=== PATIENT | male | born 1980 | race African-American/Black ===

== ENCOUNTER 2022-07-01 07:28 | Outpatient (REF) | payer OTHER, SELFPAY ==
[2022-07-01 11:13] LABS: MANUAL DIFF FLAG NO
[2022-07-01 11:21] LABS: Basophils Absolute Auto 0.1 X10*3/uL (0.0-0.2); Basophils Percent Auto 1.3 % (0-2); Eosinophils Absolute Auto 0.2 X10*3/uL (0.0-0.4); Eosinophils Percent Auto 5.4 % (0-4); Hemoglobin 14.5 g/dl (14.0-18.0); Imm Gran Abs Auto 0.01 X10*3/uL (0.00-0.03); Imm Gran Pct Auto 0.3 % (0.0-0.4); Lymphocytes Absolute Auto 1.5 X10*3/uL (1.2-4.9); Lymphocytes Percent Auto 39.1 % (20-40); Mean Corpuscular HGB Conc 33.7 g/dl (31.0-36.0); Mean Corpuscular Hemoglobin 29.1 pg (27.0-33.0); Mean Corpuscular Volume 86.3 fL (80.0-98.0); Mean Platelet Volume 12.4 fL (9.4-12.4); Monocytes Absolute Auto 0.2 X10*3/uL (0.1-1.2); Monocytes Percent Auto 5.7 % (2-11); Neutrophils Absolute Auto 1.8 x10*3/uL (2.0-8.3); Neutrophils Percent Auto 48.2 % (45-73); Platelet Count 228 X10*3/uL (160-400); Red Blood Count 4.98 X10*6/uL (4.60-5.80); Red Cell Distribution Width 12.7 % (11.0-16.0); White Blood Count 3.7 X10*3/uL (4.8-10.8)
[2022-07-01 11:40] LABS: Alanine Aminotransferase 50 U/L (0-40); Albumin Level 4.5 g/dL (3.5-5.0); Alkaline Phosphatase 44 U/L (39-117); Anion Gap 16 (12-20); Aspartate Amino Transferase 27 U/L (5-37); Bilirubin Total 0.5 mg/dL (0.0-1.0); Blood Urea Nitrogen 22 mg/dL (9-16); Calcium 9.4 mg/dL (8.4-10.2); Carbon Dioxide 22 mmol/L (22-29); Chloride 104 mmol/L (96-108); Cholesterol 155 mg/dL; Estimated Glomerular Filt Rate 48; Glucose Fasting 152 mg/dL (60-99); HDL Cholesterol 37 mg/dL; LDL Cholesterol Calculated 99 mg/dl; Potassium 3.9 mmol/L (3.3-5.1); Sodium 138 mmol/L (135-145); Total Protein 7.4 g/dL (6.5-8.0); Triglycerides 98 mg/dL
== END 2022-07-01 07:29 | disposition home or self-care (01) ==
LOC: HO.WFDLDS 07:28
PROVIDERS: Visit Provider Nurse Practitioner Family
DX: Z00.00 Encounter for general adult medical examination without abnormal findings (principal)
CPT/HCPCS: 36415; 80053; 80061; 85025

== ENCOUNTER 2022-07-19 12:24 | Outpatient (REF) | payer OTHER, SELFPAY ==
[2022-07-19 14:14] LABS: Estimated Average Glucose 105 mg/dL; Hemoglobin A1c % 5.3 %
[2022-07-19 14:41] LABS: Anion Gap 13 (12-20); Blood Urea Nitrogen 25 mg/dL (9-16); Carbon Dioxide 27 mmol/L (22-29); Chloride 101 mmol/L (96-108); Estimated Glomerular Filt Rate 42; Glucose Random 96 mg/dL (60-115); Potassium 4.3 mmol/L (3.3-5.1); Sodium 137 mmol/L (135-145)
== END 2022-07-19 12:25 | disposition home or self-care (01) ==
LOC: HO.WFDLDS 12:24
PROVIDERS: Visit Provider Nurse Practitioner Family
DX: R79.89 Other specified abnormal findings of blood chemistry (principal); R73.01 Impaired fasting glucose
CPT/HCPCS: 36415; 80048; 83036

== ENCOUNTER 2022-08-31 08:53 | Outpatient (REF) | payer OTHER, SELFPAY ==
[2022-08-31 12:15] LABS: Alanine Aminotransferase 49 U/L (0-40); Albumin Level 4.7 g/dL (3.5-5.0); Alkaline Phosphatase 42 U/L (39-117); Anion Gap 16 (12-20); Aspartate Amino Transferase 24 U/L (5-37); Bilirubin Direct 0.2 mg/dL (0.0-0.5); Bilirubin Total 0.7 mg/dL (0.0-1.0); Blood Urea Nitrogen 20 mg/dL (9-16); Calcium 9.9 mg/dL (8.4-10.2); Carbon Dioxide 26 mmol/L (22-29); Chloride 97 mmol/L (96-108); Estimated Glomerular Filt Rate 49; Glucose Fasting 93 mg/dL (60-99); Sodium 135 mmol/L (135-145); Total Protein 7.8 g/dL (6.5-8.0)
== END 2022-08-31 08:54 | disposition home or self-care (01) ==
LOC: HO.WFDLDS 08:53
PROVIDERS: Visit Provider Nurse Practitioner Family
DX: R79.89 Other specified abnormal findings of blood chemistry (principal); R74.8 Abnormal levels of other serum enzymes
CPT/HCPCS: 36415; 80053; 80076; 82248

== ENCOUNTER 2022-10-19 09:46 | Outpatient (REF) | payer OTHER, SELFPAY ==
[2022-10-19 12:33] LABS: Alanine Aminotransferase 47 U/L (0-40); Albumin Level 4.7 g/dL (3.5-5.0); Alkaline Phosphatase 45 U/L (39-117); Anion Gap 12 (12-20); Aspartate Amino Transferase 24 U/L (5-37); Bilirubin Total 0.7 mg/dL (0.0-1.0); Blood Urea Nitrogen 14 mg/dL (9-16); Calcium 9.8 mg/dL (8.4-10.2); Carbon Dioxide 29 mmol/L (22-29); Chloride 102 mmol/L (96-108); Estimated Glomerular Filt Rate 57; Glucose Fasting 93 mg/dL (60-99); Potassium 4.1 mmol/L (3.3-5.1); Sodium 139 mmol/L (135-145); Total Protein 7.8 g/dL (6.5-8.0)
[2022-10-19 12:45] LABS: Microalbum/Creatinine Ratio Ur 6.4 ug/mg cr
== END 2022-10-19 09:47 | disposition home or self-care (01) ==
LOC: HO.HMGCLDS 09:46
PROVIDERS: PCP Family Medicine; Visit Provider Family Medicine
DX: Z00.00 Encounter for general adult medical examination without abnormal findings (principal); I10 Essential (primary) hypertension; N17.9 Acute kidney failure, unspecified
CPT/HCPCS: 36415; 80048; 80053; 82043

== ENCOUNTER 2022-11-02 08:13 | Outpatient (REF) | payer OTHER, SELFPAY ==
--- NOTE | ~2022-11-02 | US_ITS ---
EXAMINATION: US ABDOMEN LIMITED WITH LIVER ELASTOGRAPHY CLINICAL INFORMATION: Elevated liver enzymes. COMPARISON: None. TECHNIQUE: Real-time imaging of the abdominal viscera. Noninvasive ultrasound liver fibrosis assessment is performed using Lewis ElastPQ point quantification shear wave elastography (2D-SWE) with a C5-2 MHz transducer. Multiple elastography samples are obtained. FINDINGS: PANCREAS: Normal. The visualized pancreatic head and body are normal in appearance. The remainder of the pancreas is obscured from visualization by the overlying bowel gas. LIVER: The liver demonstrates normal size, contour and echogenicity. There is a solid echogenic lesion in the left hepatic lobe measuring 2.1 x 1.7 x 1.6 cm suggestive of a small hemangioma. The right lobe measures 16.8 cm in length. The left lobe measures 12.3 cm in length. Portal flow is hepatopedal. Shear wave liver elastography median stiffness is 1.30 m/s (reference: normal median stiffness is 1.3 m/s or less). IQR/median stiffness to assess sampling precision is 0.02 (reference: good quality data set is IQR/median stiffness of 0.15 or less). GALLBLADDER: Normal. The gallbladder is physiologically distended without evidence of stones, sludge, polyps, wall thickening or pericholecystic fluid. COMMON BILE DUCT: Normal in caliber measuring 0.5 cm in diameter. RIGHT KIDNEY: There is an anechoic cyst in upper pole measuring 0.8 x 0.7 x 0.8 cm. No hydronephrosis. No renal calculi or focal parenchymal lesions. The kidney measures 10.3 cm in maximum dimension. FREE FLUID: None. US/US abdomen costello w elastography IMPRESSION: 1. Small hemangioma left hepatic lobe. 2. Small right renal upper pole cyst measuring 8mm. 3. Liver elastography: Median liver stiffness measures 1.30 m/s corresponding to high probability of the normal study. REFERENCE: Society of Radiologists in Ultrasound Liver Stiffness Thresholds (2020): LIVER STIFFNESS THRESHOLDS: *Liver Stiffness equal or less than 1.3 m/s: High probability of being normal. *Liver Stiffness less than 1.7 m/s: In the absence of other known clinical signs, rules out compensated advanced chronic liver disease. *Liver Stiffness 1.7-2.1 m/s: Suggestive of compensated advanced chronic liver disease but need further test for confirmation. *Liver Stiffness over 2.1 m/s: Rules in compensated advanced chronic liver disease. *Liver Stiffness over 2.4 m/s: Suggestive of clinically significant portal hypertension. QUALITY OF DATA SET: *IQR/Median value equal or less than 0.15 implies a quality data set. *IQR/Median value over 0.15 implies a poor quality data set. SIGNIFICANT CHANGE FROM PRIOR EXAM: Significant change if liver stiffness measurement is 10% or greater from prior exam. OTHER CONSIDERATIONS: The stage of liver fibrosis may be overestimated in the setting of acute hepatitis, liver inflammation, elevated liver function tests, hepatic vascular congestion, obstructive cholestasis, non-fasting state, and infiltrative diseases such as amyloidosis and lymphoma. In some patients with NAFLD, the liver stiffness thresholds for compensated advanced chronic liver disease may be lower. In causes other than viral hepatitis and NAFLD, liver stiffness thresholds are not well established.
== END 2022-11-02 08:14 | disposition home or self-care (01) ==
LOC: HO.US 08:13
PROVIDERS: Visit Provider Family Medicine
DX: R74.8 Abnormal levels of other serum enzymes (principal)
CPT/HCPCS: 76705; 76981

== ENCOUNTER 2022-12-22 08:36 | Outpatient (REF) | payer OTHER, SELFPAY ==
[2022-12-22 11:23] LABS: MANUAL DIFF FLAG NO
[2022-12-22 11:28] LABS: Basophils Absolute Auto 0.1 X10*3/uL (0.0-0.2); Basophils Percent Auto 1.4 % (0-2); Eosinophils Absolute Auto 0.1 X10*3/uL (0.0-0.4); Eosinophils Percent Auto 2.6 % (0-4); Hematocrit 42.8 % (42.0-52.0); Hemoglobin 14.7 g/dl (14.0-18.0); Imm Gran Abs Auto 0.01 X10*3/uL (0.00-0.03); Imm Gran Pct Auto 0.2 % (0.0-0.4); Lymphocytes Absolute Auto 2.1 X10*3/uL (1.2-4.9); Lymphocytes Percent Auto 48.2 % (20-40); Mean Corpuscular HGB Conc 34.3 g/dl (31.0-36.0); Mean Corpuscular Hemoglobin 29.2 pg (27.0-33.0); Mean Corpuscular Volume 84.9 fL (80.0-98.0); Mean Platelet Volume 11.8 fL (9.4-12.4); Monocytes Absolute Auto 0.3 X10*3/uL (0.1-1.2); Neutrophils Absolute Auto 1.7 x10*3/uL (2.0-8.3); Neutrophils Percent Auto 39.6 % (45-73); Platelet Count 215 X10*3/uL (160-400); Red Blood Count 5.04 X10*6/uL (4.60-5.80); Red Cell Distribution Width 12.2 % (11.0-16.0); White Blood Count 4.3 X10*3/uL (4.8-10.8)
[2022-12-22 11:55] LABS: Alanine Aminotransferase 40 U/L (0-40); Albumin Level 4.4 g/dL (3.5-5.0); Alkaline Phosphatase 42 U/L (39-117); Anion Gap 12 (12-20); Aspartate Amino Transferase 21 U/L (5-37); Bilirubin Total 0.5 mg/dL (0.0-1.0); Blood Urea Nitrogen 12 mg/dL (9-16); Calcium 9.8 mg/dL (8.4-10.2); Carbon Dioxide 28 mmol/L (22-29); Chloride 104 mmol/L (96-108); Estimated Glomerular Filt Rate 51; Glucose Random 95 mg/dL (60-115); Potassium 4.3 mmol/L (3.3-5.1); Sodium 140 mmol/L (135-145); Total Protein 7.1 g/dL (6.5-8.0)
== END 2022-12-22 08:37 | disposition home or self-care (01) ==
LOC: HO.HMGCLDS 08:36
PROVIDERS: PCP Family Medicine; Visit Provider Family Medicine
DX: Z00.00 Encounter for general adult medical examination without abnormal findings (principal); N17.9 Acute kidney failure, unspecified
CPT/HCPCS: 36415; 80053; 85025

== ENCOUNTER 2022-12-28 10:25 | Outpatient (REF) | payer OTHER, SELFPAY ==
--- NOTE | ~2022-12-28 | US_ITS ---
EXAMINATION: US RETROPERITONEAL LIMITED (RENAL ONLY) CLINICAL INFORMATION: Cyst of kidney, acquired. COMPARISON: US abdomen complete with liver elastography 11/02/2022. TECHNIQUE: Real-time imaging of the kidneys. FINDINGS: RIGHT KIDNEY: 11.1 x 4.4 x 6.0 cm (SAG x AP x TRV). The kidney is normal in size, contour, and echogenicity. Renal cortical thickness is normal. No renal calculi or hydronephrosis. A benign-appearing 0.6 cm renal cyst,, previously 0.8 cm no imaging follow-up recommended. LEFT KIDNEY: 11.3 x 5.6 x 4.8 cm (SAG x AP x TRV). The kidney is normal in size, contour, and echogenicity. Renal cortical thickness is normal. No calculi or focal parenchymal lesions. No hydronephrosis. US/US renal BI IMPRESSION: Benign-appearing subcentimeter right renal cyst, no imaging follow-up recommended..
[2022-12-28 14:36] LABS: Influenza A PCR NEGATIVE (Negative); Influenza B PCR NEGATIVE (Negative); Resp Syncy Virus RNA Qual PCR NEGATIVE (Negative); SARS COV2 PCR INHOUSE NEGATIVE (Negative)
== END 2022-12-28 10:26 | disposition home or self-care (01) ==
LOC: HO.US 10:25
PROVIDERS: Physician Assistant; PCP Family Medicine; Visit Provider Family Medicine
DX: Z20.822 Contact with and (suspected) exposure to COVID-19 (principal); N28.1 Cyst of kidney, acquired; B34.9 Viral infection, unspecified
CPT/HCPCS: 0241U; 76775

== ENCOUNTER 2023-03-21 09:34 | Outpatient (REF) | payer OTHER, SELFPAY ==
[2023-03-21 11:45] LABS: Estimated Average Glucose 105 mg/dL; Hemoglobin A1c % 5.3 %
[2023-03-21 12:24] LABS: Alanine Aminotransferase 48 U/L (0-40); Albumin Level 4.6 g/dL (3.5-5.0); Alkaline Phosphatase 40 U/L (39-117); Anion Gap 11 (12-20); Aspartate Amino Transferase 25 U/L (5-37); Bilirubin Total 0.6 mg/dL (0.0-1.0); Blood Urea Nitrogen 14 mg/dL (9-16); Calcium 9.8 mg/dL (8.4-10.2); Carbon Dioxide 29 mmol/L (22-29); Chloride 106 mmol/L (96-108); Estimated Glomerular Filt Rate 56; Glucose Random 93 mg/dL (60-115); Potassium 3.7 mmol/L (3.3-5.1); Sodium 142 mmol/L (135-145); Total Protein 7.4 g/dL (6.5-8.0)
== END 2023-03-21 09:35 | disposition home or self-care (01) ==
LOC: HO.WFDLDS 09:34
PROVIDERS: Visit Provider Family Medicine
DX: R73.01 Impaired fasting glucose (principal); N19 Unspecified kidney failure
CPT/HCPCS: 36415; 80053; 83036

== ENCOUNTER 2023-08-16 10:28 | Outpatient (AMB) | payer OTHER, SELFPAY ==
[2023-08-16 10:32] VITALS: BP 120/72; PULSE 79; O2SAT 97; BMI 24.4
--- NOTE | 2023-08-16 10:32 | MHC.PC.OV ---
Vital Signs 08/16/23 10:32 Height 6 ft 1 in Weight 185 lb BMI 24.4 BP 120/72 Blood Pressure Location Lt brachial Position Sitting Pulse 79 Pulse Source Pulse Oximeter Pulse Oximetry (%) 97 Oxygen Delivery Method Room Air Intake Visit Reasons: Follow-up labs and rash Intake Note: Patient is here to follow up on labs and rash, today is complaining of left shoulder pain for 3 weeks, possibly from lifting weights. Allergies naproxen Allergy (Mild, Verified 08/16/23 10:35) Rash Tobacco use date assessed: 08/16/23 Dental Screening Dental Screen Date: 08/16/23 Did you have a dental visit in the last 12 months?: Yes Did you have a dental problem in the last 6 months where you did not have access to dental care?: No Was dental information given to patient?: Patient has dentist HPI Follow-up labs and rash HPI Details 43 y/o male presents to f/u labs and a rash. Blood pressure today is 120/72. He is on amlodipine 7.5mg daily and losartan 50mg. Pt has complaints of L shoulder pain x3 weeks. He reports pain possibly from lifting weights. Labs were drawn 03/21/23. Reviewed labs with pt. Elevated ALT of 48. PFSH Medical History (Reviewed 08/16/23 @ 10:36 by Joselyn Frost [facility]) Allergies High blood pressure Family History Father High blood pressure High cholesterol Mother High blood pressure High cholesterol Maternal Grandmother High blood pressure High cholesterol Diabetes Paternal Grandfather Diabetes High blood pressure High cholesterol Paternal Grandmother Diabetes High blood pressure High cholesterol Other No family history of mental disorder Social History Housing: Apartment Patient Tobacco Use Status: Never used Tobacco e-Cigarette/Vaping Use: Never Used Second Hand Smoke Exposure: No service: Yes Current occupational status: employed Current occupational exposures/hazards: No Cognitive needs: No Hearing needs: No Vision needs: No Questionnaire Thrive Questionnaire Date Thrive assessed: 01/14/23 NELLI-7 AMB Questionnaire NELLI-7 Date NELLI - 7 assessed: 01/14/23 Source: Developed by Drs. Olu Jerez, Tonya Duron, Rod Chen and colleagues, with an educational beba from [employer]. Review of Systems Const Denies chills, Denies fatigue, Denies fever(s), Denies headache(s) and Denies weakness ENT Denies dizziness and Denies headache(s) Card Denies dyspnea Resp Denies cough, Denies dyspnea, Denies wheezing and Denies other (shortness of breath) Musc Denies numbness and Denies tingling Skin/Breast Reports rash Neuro Denies dizziness, Denies headache(s), Denies numbness, Denies tingling and Denies weakness Psych Denies anxiety and Denies depression Endo Denies fatigue Aller/Immun Denies wheezing Physical exam (Primary Care) Vital Signs: Last Vital Signs Pulse 79 08/16/23 10:32 BP 120/72 08/16/23 10:32 Pulse Ox 97 08/16/23 10:32 Oxygen Delivery Method Room Air 08/16/23 10:32 BMI result Body Mass Index 24.4 Tobacco/Smoking Status: Tobacco use Status Tobacco use date assessed 08/16/23 08/16/23 10:40 Patient Tobacco Use Status Never used Tobacco 08/16/23 10:40 e-Cigarette/Vaping Use Never Used 08/16/23 10:40 Thrive Assessment: Date of Thrive Assessment Date Thrive assessed 01/14/23 08/16/23 10:40 Const General: well developed; No acute distress Nutritional Appearance: well nourished Orientation/consciousness: [facility]: Yes normocephalic and Yes atraumatic Eyes General: appearance normal, both eyes and all related structures Pupils: Equal, round and reactive pupils present EOM: EOMs intact bilaterally Resp Effort & Inspection: normal respiratory effort Neuro General: patient oriented x3 and gait normal Cranial nerves: Yes Equal, round and reactive pupils present Psych Affect: normal affect Assessment and Plan Assessment & Plan (1) Left shoulder pain: Code(s): M25.512 - Pain in left shoulder Plan: Left shoulder and left upper back pain primarily emanating from subscapular region. Likely strain of subscapularis muscle. Can use ibuprofen, ice/heat and I will refer him for physical therapy (2) Rash of body: Code(s): R21 - Rash and other nonspecific skin eruption Plan: Rash bilateral axillae Possible fungal infection but noted patient is using a heavy amount of deodorant. Possible allergic reaction Encouraged him to change his deodorant/antiperspirant or consider discontinuing this Will give him a combo cream He has an appointment with Dermatology. (3) Elevated liver enzymes: Code(s): R74.8 - Abnormal levels of other serum enzymes Plan: Repeat liver enzymes Orders: Orders Lipid Panel Today Z00.00 - Encounter for general adult medical examination without abnormal findings Microalbumin, Random (w Creat) Today I10 - Essential (primary) hypertension UA and rflx microscopic Today Z00.00 - Encounter for general adult medical examination without abnormal findings PT Evaluation and Treatment Today M25.512 - Pain in left shoulder Comprehensive [place]. Panel Fast Today Z00.00 - Encounter for general adult medical examination without abnormal findings Prostate Specific Antigen Scr Today Z12.5 - Encounter for screening for malignant neoplasm of prostate TSH reflex Free T4 Today Z00.00 - Encounter for general adult medical examination without abnormal findings Medications: New clotrimazole-betamethasone 1-0.05 % 1 appl topical BID 45 grams 1RF 2 weeks Coding Level of Care Code Est Pt Level 4 (14502) Diagnoses Left shoulder pain M25.512 Rash of body R21 Elevated liver enzymes R74.8
== END 2023-08-16 10:58 | disposition home or self-care (01) ==
PROVIDERS: PCP Family Medicine; Visit Provider Family Medicine
DX: M25.512 Pain in left shoulder (principal); R21 Rash and other nonspecific skin eruption; R74.8 Abnormal levels of other serum enzymes
CPT/HCPCS: 99214

== ENCOUNTER 2023-10-17 06:20 | Outpatient (REF) | payer OTHER, SELFPAY ==
[2023-10-17 07:53] LABS: Appearance Urine Clear; Color Urine Yellow; Glucose Urine UA Negative (Negative); Leukocyte Esterase Urine Negative (Negative); Nitrite Urine Negative (Negative); Specific Gravity - Urine 1.025 (1.005-1.025); Urine Blood Negative (Negative); Urine Ketones Negative (Negative); Urine Protein Negative (Neg-Trace)
[2023-10-17 08:35] LABS: Alanine Aminotransferase 72 U/L (0-40); Albumin Level 4.5 g/dL (3.5-5.0); Alkaline Phosphatase 45 U/L (39-117); Anion Gap 10 (12-20); Aspartate Amino Transferase 55 U/L (5-37); Bilirubin Total 0.3 mg/dL (0.0-1.0); Blood Urea Nitrogen 15 mg/dL (9-16); Calcium 9.9 mg/dL (8.4-10.2); Carbon Dioxide 29 mmol/L (22-29); Chloride 105 mmol/L (96-108); Cholesterol 161 mg/dL (<200); Estimated Glomerular Filt Rate 53; Glucose Fasting 101 mg/dL (60-99); HDL Cholesterol 50 mg/dL (>40); LDL Cholesterol Calculated 92 mg/dL (<100); Potassium 3.7 mmol/L (3.3-5.1); Sodium 140 mmol/L (135-145); Total Protein 7.7 g/dL (6.5-8.0); Triglycerides 98 mg/dL (<150)
[2023-10-17 08:41] LABS: Prostate Specific Antigen Scr 1.42 ng/mL (<0.05-4.0)
[2023-10-17 08:51] LABS: TSH reflex Free T4 3.33 uIU/mL (0.32-4.0)
== END 2023-10-17 06:21 | disposition home or self-care (01) ==
LOC: HO.LAB 06:20
PROVIDERS: PCP Family Medicine; Visit Provider Family Medicine
DX: Z00.00 Encounter for general adult medical examination without abnormal findings (principal); I10 Essential (primary) hypertension; Z12.5 Encounter for screening for malignant neoplasm of prostate
CPT/HCPCS: 36415; 80053; 80061; 81003; 82043; 82570; 84153; 84443

== ENCOUNTER 2023-10-19 13:45 | Outpatient (AMB) | payer OTHER, SELFPAY ==
[2023-10-19 13:51] VITALS: BP 116/64; PULSE 83; RESP 16; O2SAT 98; BMI 24.4
--- NOTE | 2023-10-19 13:51 | MHC.PC.OV ---
Vital Signs 10/19/23 13:51 Height 6 ft 1 in Weight 185 lb BMI 24.4 BP 116/64 Blood Pressure Location Rt brachial Position Sitting Respiration 16 Pulse 83 Pulse Source Pulse Oximeter Pulse Oximetry (%) 98 Oxygen Delivery Method Room Air Intake Visit Reasons: CPE with f/u labs and health maint. Intake Note: Patient is here for his physical today. He is requesting MRI at this time, too. Allergies naproxen Allergy (Mild, Verified 10/19/23 13:53) Rash Tobacco use date assessed: 10/19/23 HPI CPE with f/u labs and health maint. HPI Details 43 y/o male presents for a CPE with f/u labs and health maintenance. Labs were drawn 10/17/23. Reviewed labs with pt. Creatinine level worsened from 1.39 to 1.46. Elevated fasting glucose of 101. Last A1c 03/21/23 5.3%. Liver enzymes elevated - AST 55 and ALT 72. Triglycerides 98. TC 161. LDL 92. HDL 50. Pt reports ongoing issues with his shoulders. 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 Olu Jerez, Tonya Duron, Rod Chen and colleagues, with an educational beba from [employer]. Review of Systems Const Denies chills, Denies fatigue, Denies fever(s), Denies headache(s) and Denies weakness Eyes Denies change in vision ENT Denies dizziness, Denies headache(s), Denies hearing loss, Denies nasal congestion, Denies sinus pain, Denies sinus pressure and Denies sore throat Card Denies chest pain, Denies lightheadedness, Denies dyspnea and Denies other (palpitations) Resp Denies cough, Denies dyspnea and Denies wheezing GI Denies abdominal pain, Denies melena, Denies hematochezia, Denies change in bowel habits, Denies dyspepsia and Denies nausea Denies hematuria and Denies dysuria Musc Details: Shoulder pain Denies abnormal gait, Denies myalgias, Denies arthralgias, Denies numbness and Denies tingling Skin/Breast Denies rash, Denies unusual bruising and Denies wounds Neuro Denies abnormal gait, Denies dizziness, Denies headache(s), Denies memory loss, Denies numbness, Denies Sensory deficit (Neuro), Denies tingling and Denies weakness Psych Denies anxiety, Denies depression and Denies memory loss Endo Denies cold intolerance, Denies fatigue, Denies heat intolerance, Denies polydipsia and Denies polyuria Zoran/Lymph Denies easy bleeding and Denies easy bruising Aller/Immun Denies wheezing Physical exam (Primary Care) Vital Signs: Last Vital Signs Pulse 83 10/19/23 13:51 Resp 16 10/19/23 13:51 BP 116/64 10/19/23 13:51 Pulse Ox 98 10/19/23 13:51 Oxygen Delivery Method Room Air 10/19/23 13:51 BMI result Body Mass Index 24.4 Tobacco/Smoking Status: Tobacco use Status Tobacco use date assessed 10/19/23 10/19/23 13:57 Patient Tobacco Use Status Never used Tobacco 10/19/23 13:57 e-Cigarette/Vaping Use Never Used 10/19/23 13:57 Thrive Assessment: Date of Thrive Assessment Date Thrive assessed 01/14/23 10/19/23 13:57 Const General: no acute distress, well developed, alert and awake Nutritional Appearance: well nourished Orientation/consciousness: patient oriented x3 HENMT Head: Yes normocephalic and Yes atraumatic Ears: hearing grossly normal bilaterally and TM's normal bilaterally General nose exam: Normal external nose present and Normal nares present Mouth: Normal oral and palatal mucosa present and moist mucous membranes Teeth and gingiva: dentition normal Throat: Yes posterior oropharynx normal Eyes General: appearance normal, both eyes and all related structures Pupils: Equal, round and reactive pupils present and Pupil accommodation reflex normal EOM: EOMs intact bilaterally Neck Neck: Yes normal visual inspection, Yes no lymphadenopathy and Yes trachea midline Thyroid: Thyroid normal Carotids: no bruits Lymphatic: no lymphadenopathy noted Chest Chest palpation & inspection: normal inspection of the chest Resp Effort & Inspection: normal respiratory effort Auscultation: clear to auscultation bilaterally Cardio Rate: regular rate Rhythm: regular rhythm Heart sounds: S1 normal heart sound present, S2 normal heart sound present, no gallops, no murmurs and no rubs Bruits: no abdominal aortic bruits and no carotid bruits GI Palpation (GI): No Abdominal aortic bruit present, Soft to palpation, nontender, No hepatosplenomegaly present and No Rebound tenderness present Auscultation: normal bowel sounds General: Yes no CVA tenderness Back/Spine/Pelvis Back: no CVA tenderness Cervical Spine: cervical ROM normal and No Cervical spine tenderness Thoracic/Lumbar Spine: thoraco-lumbar ROM normal, No pain with thoraco-lumbar ROM, No thoracic spinal tenderness and No lumbar spinal tenderness Skin Lesions: no lesions Rashes: no rashes Trauma: no lacerations or abrasions Wounds: no wounds Nails: normal Neuro General: patient oriented x3 Cranial nerves: Yes Equal, round and reactive pupils present Cognition (Neuro): normal cognition Gait exam (Neuro): Normal gait present Motor exam (neuro): 5/5 motor strength present throughout Sensory Exam: No Sensory deficit (Neuro) Deep tendon reflexes (DTR's): Right patellar reflex intensity grade: 2+ and Left patellar reflex intensity grade: 2+ Extrem General: Yes normal to inspection and No edema Psych Appearance: grossly normal Affect: normal affect Attitude: cooperative Thought process: Normal thought process present Assessment and Plan Assessment & Plan (1) Normal physical exam, routine: Code(s): Z00.00 - Encounter for general adult medical examination without abnormal findings Plan: 43-year-old?male?presents?for?complete?physical?exam Encouraged?healthy?diet?with?active?lifestyle?and?plenty?of?exercise (2) Hypertension: Code(s): I10 - Essential (primary) hypertension Plan: Blood?pressure?is?well?controlled.??Goal?is?less?than?140/90 Continue?current?medication?regimen (3) Elevated liver enzymes: Code(s): R74.8 - Abnormal levels of other serum enzymes Plan: Rising Liver enzymes History?of?hemangioma?seen?on?ultrasound?11?months?ago. Will?repeat?ultrasound?to?re-evaluate?hemangioma (4) Elevated fasting blood sugar: Code(s): R73.01 - Impaired fasting glucose Plan: Fasting?blood?sugar?was?within?normal?limits (5) Elevated serum creatinine: Code(s): R79.89 - Other specified abnormal findings of blood chemistry Plan: Elevated?serum?creatinine?was?slightly?depressed?glomerular?filtration?rate Will?have?him?repeat?this If?this?is?continuing?to?rise,?will?refer?to?Nephrology (6) Left shoulder pain: Code(s): M25.512 - Pain in left shoulder Plan: Ongoing?left?shoulder?pain?with?radicular?symptoms?including?numbness And?slight?decreased?reflex?at?biceps?tendon?compared?with?right?arm. (7) Screening for prostate cancer: Code(s): Z12.5 - Encounter for screening for malignant neoplasm of prostate Plan: PSA?was?within?normal?limits (8) Hemangioma of liver: Code(s): D18.03 - Hemangioma of intra-abdominal structures Plan: As?above (9) Cervical radiculitis: Code(s): M54.12 - Radiculopathy, cervical region Plan: As?above Checking?MRI?and?plain?films Will?follow-up?with?patient?and?may?need?referral?to?ortho?or?Neurosurgery. Will?have?patient?take?meloxicam?daily?for?anti-inflammatory?properties. Orders: Orders US abdomen limited Today D18.03 - Hemangioma of intra-abdominal structures, R74.8 - Abnormal levels of other serum enzymes XR shoulder LT min 2V Today R74.8 - Abnormal levels of other serum enzymes XR cervical spine 3V Today M54.12 - Radiculopathy, cervical region MR cervical spine wo con Today M25.512 - Pain in left shoulder, M54.12 - Radiculopathy, cervical region, R20.0 - Anesthesia of skin MR shoulder LT wo con Today M25.512 - Pain in left shoulder, M54.12 - Radiculopathy, cervical region, R20.0 - Anesthesia of skin Medications: New meloxicam 15 mg PO DAILY 30 tabs 2RF 30 days Coding Level of Care Code Est Pt Level 4 (16058) Est Pt Prev Care 40-64y(56512) Diagnoses Normal physical exam, routine Z00.00 Hypertension I10 Elevated liver enzymes R74.8 Elevated fasting blood sugar R73.01 Elevated serum creatinine R79.89 Left shoulder pain M25.512 Screening for prostate cancer Z12.5 Hemangioma of liver D18.03 Cervical radiculitis M54.12
== END 2023-10-19 14:26 | disposition home or self-care (01) ==
PROVIDERS: PCP Family Medicine; Visit Provider Family Medicine
DX: Z00.00 Encounter for general adult medical examination without abnormal findings (principal); I10 Essential (primary) hypertension; M25.512 Pain in left shoulder; M54.12 Radiculopathy, cervical region; R74.8 Abnormal levels of other serum enzymes; R73.01 Impaired fasting glucose; R79.89 Other specified abnormal findings of blood chemistry; D18.03 Hemangioma of intra-abdominal structures
CPT/HCPCS: 99214; 99396

== ENCOUNTER 2023-10-25 16:49 | Outpatient (REF) | payer OTHER, SELFPAY ==
--- NOTE | ~2023-10-25 | XR_ITS ---
EXAMINATION: XR CERVICAL SPINE CLINICAL INFORMATION: Cervical radiculopathy. COMPARISON: None available. TECHNIQUE: 3 views of the cervical spine were obtained. FINDINGS: Moderate disc degenerative change and anterior osteophyte formation most notable at C4-C6. Straightening of the normal cervical lordosis. No compression fractures or subluxations are identified. Alignment is maintained at the atlanto-axial articulation. The prevertebral soft tissues appear unremarkable. XR/XR cervical spine 3V IMPRESSION: Degenerative change.
--- NOTE | ~2023-10-25 | XR_ITS ---
EXAMINATION: XR SHOULDER, LEFT CLINICAL INFORMATION: Left shoulder pain. COMPARISON: None available. TECHNIQUE: AP external rotation, Grashey, scapular Y, and axillary views of the left shoulder. FINDINGS: The bones and soft tissues appear unremarkable. No fracture appreciated. Glenohumeral and acromioclavicular alignment is anatomic with normal joint space. No abnormal soft tissue calcifications. XR/XR shoulder LT min 2V IMPRESSION: Normal plain film examination of the left shoulder.
== END 2023-10-25 16:50 | disposition home or self-care (01) ==
LOC: HO.XRAY 16:49
PROVIDERS: PCP Family Medicine; Visit Provider Family Medicine
DX: M54.12 Radiculopathy, cervical region (principal); R74.8 Abnormal levels of other serum enzymes
CPT/HCPCS: 72040; 73030

== ENCOUNTER 2023-11-02 14:40 | Outpatient (AMB) | payer OTHER, SELFPAY ==
--- NOTE | 2023-11-02 14:43 | MHC.PC.OV ---
Vital Signs 11/02/23 15:03 Height 6 ft 1 in Weight 185 lb BMI 24.4 BP 114/68 Blood Pressure Location Lt brachial Position Sitting Respiration 13 Pulse 78 Pulse Source Pulse Oximeter Pulse Oximetry (%) 96 Oxygen Delivery Method Room Air Intake Visit Reasons: f/u shoulder pain Intake Note: Patient is here to follow up with xrays of spine and shoulder. Patient reports he has an ultrasound next week and the MRI on the 11/19/23. 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 Labs were drawn 10/17/23. Reviewed labs with pt. Creatinine level mildly elevated at 1.46. Elevated fasting glucose of 101. Elevated liver enzymes - AST 55 and ALT 72. Triglycerides 98. TC 161. LDL 92. HDL 50. He reports he continues physical therapy and meloxicam for his shoulders. Recent x-ray on his shoulders unrevealing. He notes he has a MRI scheduled soon. 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 Olu Jerez, Tonya Duron, Rod Chen and colleagues, with an educational beba from [employer]. Physical exam (Primary Care) Vital Signs: Last Vital Signs Pulse 78 11/02/23 15:03 Resp 13 11/02/23 15:03 BP 114/68 11/02/23 15:03 Pulse Ox 96 11/02/23 15:03 Oxygen Delivery Method Room Air 11/02/23 15:03 BMI result Body Mass Index 24.4 Tobacco/Smoking Status: Tobacco use Status Tobacco use date assessed 10/19/23 11/02/23 14:44 Patient Tobacco Use Status Never used Tobacco 11/02/23 14:44 e-Cigarette/Vaping Use Never Used 11/02/23 14:44 Thrive Assessment: Date of Thrive Assessment Date Thrive assessed 01/14/23 11/02/23 14:44 Assessment and Plan Assessment & Plan (1) Left shoulder pain: Code(s): M25.512 - Pain in left shoulder Plan: Ongoing?left?shoulder?pain.??X-ray?is?unremarkable He?has?some?radicular?symptoms?and?has?an?MRI?scheduled?for? Meloxicam?is?helping?while?he?takes?it?but?is?not?resolving?the?issue.??Same?with?physical?therapy?which?he?notes?has?helped?somewhat?but?symptoms?do?persist. Referred?to?Ortho?today; advised?him?to?try?to?get?an?appointment?for?about?a?week?after?the?MRI (2) Elevated liver enzymes: Code(s): R74.8 - Abnormal levels of other serum enzymes Plan: Liver?enzymes?have?elevated?and?I?have?ordered?an ultrasound He?had?an?ultrasound?a?year?ago?which?showed?a?hemangioma?but?no?other?lesions?or?steatosis. Will?repeat?ultrasound?to?re-evaluate?hemangioma?which?may?have?enlarged. May?need?referral (3) Elevated fasting blood sugar: Code(s): R73.01 - Impaired fasting glucose Plan: Blood?sugar?101 We?can?discuss?at?subsequent?visit (4) Elevated serum creatinine: Code(s): R79.89 - Other specified abnormal findings of blood chemistry Plan: Mildly?elevated?serum?creatinine?level Will?follow Orders: Orders US abdomen limited Today D18.03 - Hemangioma of intra-abdominal structures, R74.8 - Abnormal levels of other serum enzymes Referrals Orthopedics Referral M25.512 - Pain in left shoulder Medications: Refilled meloxicam 15 mg PO DAILY 30 tabs 2RF 30 days M25.512 - Pain in left shoulder Coding Level of Care Code Est Pt Level 4 (89662) Diagnoses Left shoulder pain M25.512 Elevated liver enzymes R74.8 Elevated fasting blood sugar R73.01 Elevated serum creatinine R79.89
[2023-11-02 15:03] VITALS: BP 114/68; PULSE 78; RESP 13; O2SAT 96; BMI 24.4
== END 2023-11-02 16:00 | disposition home or self-care (01) ==
PROVIDERS: PCP Family Medicine; Visit Provider Family Medicine
DX: M25.512 Pain in left shoulder (principal); R74.8 Abnormal levels of other serum enzymes; R73.01 Impaired fasting glucose; R79.89 Other specified abnormal findings of blood chemistry
CPT/HCPCS: 99214

== ENCOUNTER 2023-11-08 09:53 | Outpatient (REF) | payer OTHER, SELFPAY ==
--- NOTE | ~2023-11-08 | US_ITS ---
EXAMINATION: US ABDOMEN LIMITED CLINICAL INFORMATION: Abnormal levels of other serum enzymes. Follow up hemangioma. COMPARISON: Renal ultrasound 12/28/2022. Ultrasound abdomen limited with elastography 11/02/2022. TECHNIQUE: Real-time imaging of the right upper quadrant abdominal viscera. FINDINGS: PANCREAS: Normal. LIVER: The liver is normal in size. The liver contour is normal. Parenchymal echogenicity is normal. 2.1 x 1.9 x 2.2 cm echogenic focus in the left hepatic lobe is consistent with a hemangioma. This was identified on the prior abdominal ultrasound. There is no intrahepatic biliary duct dilatation seen. GALLBLADDER: Normal. The gallbladder is physiologically distended without evidence of stones, sludge, polyps, wall thickening or pericholecystic fluid. COMMON BILE DUCT: Normal in caliber measuring 0.3 cm in diameter. RIGHT KIDNEY: Normal. No hydronephrosis. No renal calculi or focal parenchymal lesions. The kidney measures 10.4 cm in maximum dimension. FREE FLUID: None. US/US abdomen limited IMPRESSION: 2.2 cm echogenic focus in the left hepatic lobe is consistent with a hemangioma.
== END 2023-11-08 09:54 | disposition home or self-care (01) ==
LOC: HO.HMGCX 09:53
PROVIDERS: PCP Family Medicine; Visit Provider Family Medicine
DX: R74.8 Abnormal levels of other serum enzymes (principal); D18.03 Hemangioma of intra-abdominal structures
CPT/HCPCS: 76705

== ENCOUNTER 2023-11-19 14:57 | Outpatient (REF) | payer OTHER, SELFPAY ==
--- NOTE | ~2023-11-19 | MR_ITS ---
EXAMINATION: MR CERVICAL SPINE WITHOUT CONTRAST CLINICAL INFORMATION: Left arm radiculopathy. Neck pain. COMPARISON: None available. TECHNIQUE: Multiplanar, multisequential imaging of the cervical spine was performed without contrast. FINDINGS: VERTEBRAL BODIES AND PARASPINAL SOFT TISSUES: There is haxf-ze-hvqluqqu endplate edema at the C5-C6 level. The marrow signal is otherwise fairly homogeneous. Mild reversal of the normal cervical lordosis is evident. Significant loss of disc height with a mild posterior subluxation visible at the C4-C5 level. Mild posterior subluxations evident at C3-C4, C5-C6, and C6-C7. The paraspinal soft tissues are normal. The vertebral artery flow-voids are maintained. The lung apices are grossly clear. CERVICOMEDULLARY JUNCTION AND VISUALIZED POSTERIOR FOSSA: The craniovertebral junction and imaged portions of the brain parenchyma appear normal. No cord signal abnormality or syrinx is seen. SPINAL LEVELS: C2-C3: No disc pathology. No central canal stenosis or foraminal narrowing. C3-C4: Mild retrosubluxation and disc bulge slightly impressing upon the ventral thecal sac without central canal stenosis or foraminal encroachment. C4-C5: Retrosubluxation and severe loss of disc height with a shallow disc-osteophyte complex mildly impressing upon the ventral cord. No central canal stenosis. Svsu-uj-lukkpaah foraminal narrowing. C5-C6: Mild disc-osteophyte complex without central canal stenosis. Moderate bilateral foraminal narrowing. C6-C7: Retrosubluxation and large left subarticular to foraminal disc extrusion flattening the left ventrolateral aspect of the cord and likely impinging upon the left C7 nerve root. C7-T1: No disc pathology. Moderate hypertrophic facet degeneration with moderate bilateral foraminal encroachment. No central canal stenosis. MR/MR cervical spine wo con IMPRESSION: 1. Large left subarticular to left foraminal disc extrusion at the C6-C7 level flattening the left ventrolateral aspect of the cord and likely impinging upon the left C7 nerve root. 2. Moderate bilateral foraminal narrowing with a disc-osteophyte complex at the C5-C6 level. Rrbf-bl-vyjeojyg endplate edema. 3. Severe loss of disc height with a disc-osteophyte complex and retrosubluxation at the C4-C5 level. Qohw-wr-edpqkadc foraminal narrowing. 4. Moderate facet arthropathy and moderate bilateral foraminal encroachment at the C7-T1 level.
--- NOTE | ~2023-11-19 | MR_ITS ---
EXAMINATION: MR SHOULDER WITHOUT CONTRAST, LEFT CLINICAL INFORMATION: Shoulder pain COMPARISON: X-ray left shoulder September [id number] TECHNIQUE: MRI of the shoulder was performed using routine sequences on a high-field scanner. FINDINGS: Rotator cuff: Intact. Biceps: Intact. Coracoacromial arch: Mild arthrosis of the acromioclavicular joint. Mild concavity of the undersurface of the acromion without subacromial spur. Bursa: Normal. Labrum/capsule: Normal. Glenohumeral joint: Normal. MR/MR shoulder LT wo con IMPRESSION: Mild arthrosis of the acromioclavicular joint.
== END 2023-11-19 14:58 | disposition home or self-care (01) ==
LOC: HO.MRI 14:57
PROVIDERS: PCP Family Medicine; Visit Provider Family Medicine
DX: M54.12 Radiculopathy, cervical region (principal); M25.512 Pain in left shoulder; R20.0 Anesthesia of skin
CPT/HCPCS: 72141; 73221

== ENCOUNTER 2023-11-23 10:44 | Outpatient (AMB) | payer OTHER, SELFPAY ==
--- NOTE | 2023-11-23 11:08 | A.OFFVIS_ITS ---
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 Patient has tried and failed PT. His PCP ordered an MRI and referred him to orthopedics. He states that he had this pain on the right side about a years ago. Hx of PT with mild relief. Pain starts from his neck down to his arm per patient. He also reports intermittent weakness in his left arm. 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 He has been taking meloxicam which gives him minimal relief. Allergies naproxen Allergy (Mild, Verified 11/23/23 11:18) Rash Medication List - Last Reconciled 11/23/23 by Daniele Pulido MD adapalene 0.1% (Differin) 1 appl topical BEDTIME amlodipine 7.5 mg (1.5 x 5 mg) PO DAILY 90 days losartan 50 mg PO DAILY 90 days meloxicam 15 mg PO DAILY 30 days montelukast 10 mg PO DAILY 30 days [facility] Medical History Allergies High blood pressure Family History Father High blood pressure High cholesterol Mother High blood pressure High cholesterol Maternal Grandmother High blood pressure High cholesterol Diabetes Paternal Grandfather Diabetes High blood pressure High cholesterol Paternal Grandmother Diabetes High blood pressure High cholesterol Other No family history of mental disorder Social History Housing: Apartment Patient Tobacco Use Status: Never used Tobacco e-Cigarette/Vaping Use: Never Used Second Hand Smoke Exposure: No service: Yes 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: No Cognitive needs: No Hearing needs: No Vision needs: No Physical Exam Vital Signs: BMI result Body Mass Index 24.4 Const Other: Well-nourished well-developed very friendly male awake alert and oriented x3 in no acute distress Extrem Other: Bilateral upper extremity examination shows good capillary refill, no skin lesions noted, normal sensation light touch Left shoulder examination shows slightly decreased range of motion when compared to his right shoulder, 4+ out of 5 strength with supraspinatus testing, positive impingement signs, tenderness over hiis acromioclavicular joint, no instability Results Reviewed Results Reviewed: MRI of the patient's left shoulder shows moderate to severe acromioclavicular joint narrowing, a type 3 acromion, signal change within the supraspinatus tendon most likely due to rotator cuff tendinosis MRI report of the patient's cervical spine shows a at level C6-C7 ?right show subluxation and large left subarticular foraminal disc extrusion flattening the left ventral lateral aspect of the cord and likely impinging upon the left C7 nerve root? Assessment & Plan Assessment & Plan (1) Cervical radiculitis: Code(s): M54.12 - Radiculopathy, cervical region (2) Left shoulder pain: Code(s): M25.512 - Pain in left shoulder Plan Mr. Cali presents with progressively worsening neck pain which radiates down his left arm due to cervical stenosis. Thus, I will refer him to the neuro surgery Department here at [facility]. I did give him a prescription for a Medrol Dosepak to help with his symptoms in the meantime. The patient also has left shoulder pain due to impingement syndrome. We will hold off on a cortisone injection at this time. I will see him back once his neuro surgery consultation is completed. Feel free to call me at any time should questions regarding his orthopedic management arise. Thank you very much for asking me to see this very gentleman. I spent 22 minutes in reviewing the patient's records and imaging studies, seeing the patient and documenting in the medical record. Orders: Referrals Neurosurgery Referral M54.12 - Radiculopathy, cervical region Medications: New methylprednisolone (Medrol (Remy)) PO PER PKG DIR 21 ea 0RF Coding Level of Care Code New Pt Level 2 (16204) Diagnoses Cervical radiculitis M54.12 Left shoulder pain M25.512
[2023-11-23 11:18] VITALS: BMI 24.4
== END 2023-11-23 11:28 | disposition home or self-care (01) ==
PROVIDERS: PCP Family Medicine; Visit Provider Orthopaedic Surgery
DX: M54.12 Radiculopathy, cervical region (principal); M25.512 Pain in left shoulder
CPT/HCPCS: 99202

== ENCOUNTER → 2023-11-23 10:44 | Outpatient (BNVA) | payer OTHER, SELFPAY | PROVIDERS: PCP Family Medicine; Visit Provider Orthopaedic Surgery | DX: M54.12 Radiculopathy, cervical region (principal); M25.512 Pain in left shoulder | CPT/HCPCS: 99202 ==

== ENCOUNTER 2023-12-16 10:46 | Outpatient (AMB) | payer OTHER, SELFPAY ==
--- NOTE | 2023-12-16 11:19 | HO.SPINEOV ---
Intake Intake Visit Reasons: Radiculopathy, cervical region Intake Note: Mr. Cali is here today c/o left shoulder/arm pain, tingling, and numbness. MRI done @ [facility]. 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 He is a very nice 43-year-old gentleman who was in listed in the [place], who presents for evaluation of pain, numbness and weakness in his left arm that started in June of 2023. Specifically, the pain starts from his neck radiates down into his arm, goes into his hand with numbness of his index finger. He has noticed significant weakness of his triceps, doing pushups he will notice fatigue in his arm that causes him to have to stop. He used to be able to do 60 or more pushups in a row, now he can do half that are less. 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 The pain is present all throughout the day, but is aggravated with activity. If he moves his arm up over his head he can make the pain go away. He is still taking meloxicam every day to help with the discomfort. He did a steroid pack which did give him some temporary relief. He is also in the middle of physical therapy right now. The pain can be quite severe at night, he can not lay on his left side. He is here today to see us for evaluation of herniated disc at C6-7 seen on MRI done at [place]. PMH: History of hypertension, elevated serum creatinine. otherwise healthy no history of heart attacks, stroke, bleeding disorders, pulmonary problems Social hx: He does not smoke, drink or use any recreational drugs Medications: Losartan, meloxicam, amlodipine, Singulair Allergies: Naproxen Physical exam: He has a 4-5 weakness of his left triceps, hand strength is full. He has an absent left triceps weakness. No Gabino sign. Gait is normal. Rest of his exam is normal. Imaging review: MRI done of the cervical spine at [place] shows multilevel degenerative disc disease of the cervical spine, but most significantly at C6-7 on the left there was a large herniated disc fragment. There was no cord compression or cord signal change seen. Impression: 43-year-old male, in listed [place], who has had 6 months or more of severe pain going down his arm with weakness and numbness in his left arm. The symptoms have not improved with conservative treatment and tincture of time. He does have neurological deficit and reflex changes which are concerning. Thankfully the weakness has not progressed but it is not improving. He is still in significant discomfort daily having a limit his activities. Typically this is a patient Dr. Butt would offer an anterior cervical diskectomy and fusion at C6-7. I discussed the procedure with the patient at length including risks benefits. I will review his imaging with Dr. Butt and get back to the patient with a final plan but I have tentatively booked him for surgery because of the weakness and numbness. Pt was given risk and benefits of surgery including but not limited to infection, hematoma , nerve injury,durotomy, weakness,bowel/bladder injury, persistent pain, vocal hoarseness, dysphagia, neck pain as well as the option to continue with conservative treatment and patient wishes to proceed with surgery. Pt is aware they should stop their motrin, aspirin 7 days prior to surgery. All questions were answered to the best of our ability. If there is anything about this patients medical history that we have overlooked or concerns you have about us proceeding with surgery we would appreciate any input you can offer. Thank you for allowing us to care for your patient. The total time spent with this visit with this patient was 45 minutes reviewing history, physical exam, cervical MRI imaging review, and implementation of treatment plan or further diagnostic testing Herbert Butt MD,PhD [facility] Coding Level of Care Code New Pt Level 4 (98496) Diagnoses Cervical radiculitis M54.12
== END 2023-12-16 12:05 | disposition home or self-care (01) ==
PROVIDERS: PCP Family Medicine; Referring Provider Orthopaedic Surgery; Visit Provider Physician Assistant
DX: M54.12 Radiculopathy, cervical region (principal)
CPT/HCPCS: 99204

== ENCOUNTER → 2023-12-16 10:46 | Outpatient (BNVA) | payer OTHER, SELFPAY | PROVIDERS: PCP Family Medicine; Visit Provider Physician Assistant | DX: M54.12 Radiculopathy, cervical region (principal) | CPT/HCPCS: 99202 ==

== ENCOUNTER 2024-01-17 08:36 | Outpatient (AMB) | payer OTHER, SELFPAY ==
[2024-01-17 08:43] VITALS: BP 118/69; PULSE 81; RESP 16; O2SAT 99; BMI 24.1
--- NOTE | 2024-01-17 08:43 | MHC.PC.OV ---
Vital Signs 01/17/24 08:43 Height 6 ft 1 in Weight 183 lb BMI 24.1 BP 118/69 Blood Pressure Location Lt brachial Respiration 16 Pulse 81 Pulse Source Pulse Oximeter Pulse Oximetry (%) 99 Oxygen Delivery Method Room Air Intake Visit Reasons: f/u shoulder pain Intake Note: Patient is here to follow up on shoulder pain. Allergies naproxen Allergy (Mild, Verified 01/17/24 08:45) Rash Tobacco use date assessed: 01/17/24 Dental Screening Dental Screen Date: 01/17/24 HPI f/u shoulder pain HPI Details 43 y/o male presents to f/u L shoulder pain with radicular symptoms. X-ray had been unremarkable. Had seen the [facility] spine center 12/16/23. MRI done at cervical spine at [facility] shows multilevel degenerative disc disease of cervical spine, most significantly at C6-7 on L there was large herniated disc fragment. No cord compression or cord signal change seen. Pt has surgery scheduled in February for cervical radiculopathy. Also f/u mildly elevated fasting blood sugars. A1c today 01/17/24 is 5.7%. Pt has had a few rounds of steroids and medrol carline. 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 1. Little interest or pleasure in doing things: not at all 2. Feeling down, depressed, or hopeless: not at all 3. Trouble falling or staying asleep, or sleeping too much: not at all 4. Feeling tired or having little energy: not at all 5. Poor appetite or overeating: not at all 6. Feeling bad about yourself - or that you are a failure or have let yourself or your family down: not at all 7. Trouble concentrating on things, such as reading the newspaper or watching television: not at all 8. Moving or speaking so slowly that other people could have noticed. Or the opposite - being so fidgety or restless that you have been moving around a lot more than usual: not at all 9. Thoughts that you would be better off or of hurting yourself in some way: not at all Total score: 0 Depression Screening Interpretation: Negative Depression Screening Done: Yes Source: Developed by Drs. Olu Jerez, Tonya Duron, Rod Chen and colleagues, with an educational beba from [employer]. Thrive Questionnaire Date Thrive assessed: 01/17/24 I am a: Patient What is your living situation today?: I have a steady place to live Within the past 12 months, did the food you bought not last and you didn't have the money to get more?: Never true Within the past 12 months, did you worry whether your food would run out before you got money to buy more?: Never true Do you have trouble paying for medicines?: No Do you have trouble getting transportation to medical appointments?: No Do you have trouble paying your heating and electricity bill?: No Do you have trouble taking care of your child, family member or friend?: No Do you have trouble with day-to-day activities such as bathing, preparing meals, shopping, managing finances, etc.?: No Are you currently unemployed and looking for a job?: No Are you interested in more education?: Yes THRIVE Score: 0 AUDIT C Alcohol Use Questionnaire (AUDIT-C) 1. How often do you have a drink containing alcohol?: Monthly or less 2. How many drinks containing alcohol do you have on a typical day when you are drinking?: 1 or 2 3. How often do you have six or more drinks on one occasion?: Never Total Score: 1 NELLI-7 AMB Questionnaire NELLI-7 Date NELLI - 7 assessed: 01/17/24 Feeling nervous, anxious, or on edge: 0 = Not at all Not being able to stop or control worryin = Not at all Worrying too much about different things: 0 = Not at all Trouble relaxin = Not at all Being so restless that it is hard to sit still: 0 = Not at all Becoming easily annoyed or irritable: 0 = Not at all Feeling afraid as if something awful might happen: 0 = Not at all Total NELLI-7 score (0-4 normal; 5-9 mild; 10-14 moderate; 15-21 severe): 0 Source: Developed by Drs. Olu Jerez, Tonya Duron, Rod Chen and colleagues, with an educational beba from [employer]. Review of Systems Const Denies chills, Denies fatigue, Denies fever(s), Denies headache(s) and Denies weakness ENT Denies dizziness and Denies headache(s) Card Denies dyspnea Resp Denies cough, Denies dyspnea, Denies wheezing and Denies other (shortness of breath) Musc Denies numbness and Denies tingling Neuro Denies dizziness, Denies headache(s), Denies numbness, Denies tingling and Denies weakness Psych Denies anxiety and Denies depression Endo Denies fatigue Aller/Immun Denies wheezing Physical exam (Primary Care) Vital Signs: Last Vital Signs Pulse 81 01/17/24 08:43 Resp 16 01/17/24 08:43 BP 118/69 01/17/24 08:43 Pulse Ox 99 01/17/24 08:43 Oxygen Delivery Method Room Air 01/17/24 08:43 BMI result Body Mass Index 24.1 Tobacco/Smoking Status: Tobacco use Status Tobacco use date assessed 01/17/24 01/17/24 08:47 Patient Tobacco Use Status Never used Tobacco 01/17/24 08:47 e-Cigarette/Vaping Use Never Used 01/17/24 08:47 PHQ-9: PHQ-9 Score PHQ-9: Total score 0 01/17/24 09:18 Depression Screening Interpretation: Negative Thrive Assessment: Date of Thrive Assessment Date Thrive assessed 01/17/24 01/17/24 08:51 Const General: well developed; No acute distress Nutritional Appearance: well nourished Orientation/consciousness: patient oriented x3 HENMT Head: Yes normocephalic and Yes atraumatic Eyes General: appearance normal, both eyes and all related structures Pupils: Equal, round and reactive pupils present EOM: EOMs intact bilaterally Resp Effort & Inspection: normal respiratory effort Neuro General: patient oriented x3 and gait normal Cranial nerves: Yes Equal, round and reactive pupils present Psych Affect: normal affect Results AMB Hemoglobin A1c AMB Hemoglobin A1c 5.7 % Last Edit by Joselyn Frost CMA on 01/17/24 09:19 Results Reviewed Results Reviewed: Laboratory Last Values Hgb A1c (Clinic) 5.7 % (4.0-6.0) 01/17/24 09:18 Assessment and Plan Assessment & Plan (1) Left shoulder pain: Code(s): M25.512 - Pain in left shoulder Plan: Ongoing?left?neck?and?shoulder?pain?secondary?to?cervical?radiculitis See?below (2) Cervical radiculitis: Code(s): M54.12 - Radiculopathy, cervical region Plan: MRI?shows?impingements?of?cervical?spine?and?he?has?seen?ortho?and?neuro?surgery. Now?has?appointment?for?neuro?surgery,?fusion,?on?03/01/2024. (3) Elevated fasting blood sugar: Code(s): R73.01 - Impaired fasting glucose Plan: A1c?today:??5.7%. However,?patient?has?had?a?few?rounds?of?steroids,?most?recently?a?Medrol?Dosepak Will?continue?to?follow?his?blood?sugars. He?is?having?surgery?for?cervical radiculopathy?in?February. Will?get?him?back?in?May?to?follow-up?blood?sugars. (4) Elevated liver enzymes: Code(s): R74.8 - Abnormal levels of other serum enzymes Plan: Likely?secondary?to?hemangioma Orders: Orders Comprehensive [place]. Panel Fast Today R74.8 - Abnormal levels of other serum enzymes, Z00.00 - Encounter for general adult medical examination without abnormal findings AMB Hemoglobin A1c Today Z13.9 - Encounter for screening, unspecified Coding Level of Care Code Est Pt Level 3 (32661) Diagnoses Left shoulder pain M25.512 Cervical radiculitis M54.12 Elevated fasting blood sugar R73.01 Elevated liver enzymes R74.8
== END 2024-01-17 09:39 | disposition home or self-care (01) ==
PROVIDERS: PCP Family Medicine; Visit Provider Family Medicine
DX: M25.512 Pain in left shoulder (principal); M54.12 Radiculopathy, cervical region; R73.01 Impaired fasting glucose; R74.8 Abnormal levels of other serum enzymes
CPT/HCPCS: 83036; 99213

== ENCOUNTER 2024-01-17 09:34 | Outpatient (REF) | payer OTHER, SELFPAY ==
[2024-01-17 11:56] LABS: Alanine Aminotransferase 42 U/L (0-40); Albumin Level 4.8 g/dL (3.5-5.0); Alkaline Phosphatase 40 U/L (39-117); Anion Gap 13 (12-20); Aspartate Amino Transferase 22 U/L (5-37); Blood Urea Nitrogen 23 mg/dL (9-16); Calcium 9.8 mg/dL (8.4-10.2); Carbon Dioxide 27 mmol/L (22-29); Chloride 105 mmol/L (96-108); Estimated Glomerular Filt Rate 58; Glucose Fasting 93 mg/dL (60-99); Potassium 4.1 mmol/L (3.3-5.1); Sodium 141 mmol/L (135-145); Total Protein 7.9 g/dL (6.5-8.0)
[2024-01-17 12:51] LABS: Bilirubin Total 0.5 mg/dL (0.0-1.0)
== END 2024-01-17 09:35 | disposition home or self-care (01) ==
LOC: HO.WFDLDS 09:34
PROVIDERS: Visit Provider Family Medicine
DX: Z00.00 Encounter for general adult medical examination without abnormal findings (principal); R74.8 Abnormal levels of other serum enzymes
CPT/HCPCS: 36415; 80053

== ENCOUNTER 2024-03-01 06:01 | Day surgery (SDC) | payer OTHER, SELFPAY ==
[2024-02-22 12:15] VITALS: BP 119/71; PULSE 75; RESP 18; O2SAT 99; BMI 24.5
--- NOTE | 2024-02-22 12:24 | HO.ANESPROP2 ---
Documented by User: Dulce Maria Centeno NP 02/22/24 12:33 HPI - Anesthesia Eval Consult details Narrative: 43yo M for C6-7 Ant Cerv Discectomy w/ fusion No recent illness No CP/SOB with regular gym workouts. Stopped about 2 months ago d/t cspine symptoms PMFSH Active Problems Active Problems: All Active Problems (Updated 02/22/24 @ 12:09 by Abby Britt RN) Cervical radiculitis (Acute) Screening for prostate cancer (Acute) Left shoulder pain (Acute) Rash of body (Acute) Renal cyst (Acute) Hypertension (Acute) Low HDL (under 40) (Acute) Renal failure (Acute) Acute renal injury (Acute) Elevated liver enzymes (Acute) Elevated fasting blood sugar (Acute) Elevated serum creatinine (Acute) Allergic drug rash (Acute) Strain of right shoulder (Acute) Seasonal allergies (Acute) Normal physical exam, routine (Acute) High blood pressure (Acute) Past Medical History Medical History Hemangioma Renal cyst Cervical radiculitis Allergies High blood pressure Family History Family History Father High blood pressure High cholesterol Mother High blood pressure High cholesterol Maternal Grandmother High blood pressure High cholesterol Diabetes Paternal Grandfather Diabetes High blood pressure High cholesterol Paternal Grandmother Diabetes High blood pressure High cholesterol Other No family history of mental disorder Family history of problems with anesthesia: No Surgical History Surgical History Hx of wisdom tooth extraction History of Problems with Anesthesia: No Social History Social History Housing: Apartment Are you a primary career development coordinator to a significant other at home: No Do you presently have visiting nurse or other home services: No Patient Tobacco Use Status: Never used Tobacco e-Cigarette/Vaping Use: Never Used Second Hand Smoke Exposure: No Use of substances other than those prescribed or required for medical reasons: No Have you been hit, kicked, punched, or otherwise hurt by someone within the past year? 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: No Cognitive needs: No Hearing needs: No Vision needs: No Meds Allergies Allergy/AdvReac Type Severity Reaction Status Date / Time naproxen Allergy Mild Rash Verified 01/17/24 08:45 Home Medications ?Medication ?Instructions ?Recorded ?Confirmed ?Last Taken ?Type adapalene 0.1 % topical cream 1 appl topical BEDTIME PRN 10/19/23 02/22/24 02/29/24 History (Differin) axillary rash amlodipine 5 mg tablet 7.5 mg PO QPM 02/22/24 02/22/24 02/29/24 History losartan 50 mg tablet 50 mg PO QPM 02/22/24 02/22/24 02/29/24 History meloxicam 15 mg tablet 15 mg PO QPM 02/22/24 02/22/24 02/23/24 History Exam Height,Weight and Vital Signs: Height 6 ft 1 in Weight 84.368 kg Last Vital Signs Pulse 75 02/22/24 12:15 Resp 18 02/22/24 12:15 BP 119/71 02/22/24 12:15 Pulse Ox 99 02/22/24 12:15 O2 Del Method Room Air 02/22/24 12:15 Pertinent Lab Results Pertinent Lab Results: Laboratory Tests 01/17/24 09:35 Sodium 141 Potassium 4.1 Chloride 105 Carbon Dioxide 27 BUN 23 H Creatinine 1.35 Airway Mallampati Class: II TM Dist: >3cm Neck ROM: Limited Heart: RRR Lungs: CTAB Assessment and Plan Assessment Anesthesia Assessment: Anesthesia Plan Discussed and PAT Visit Final Anesthetic Review Family History of Problems with Anesthesia: No History of Problems with Anesthesia: No Documented by User: Britton Shah MD 03/01/24 08:05 [facility] Past Medical History Medical History Hemangioma Renal cyst Cervical radiculitis Allergies High blood pressure Family History Family History Father High blood pressure High cholesterol Mother High blood pressure High cholesterol Maternal Grandmother High blood pressure High cholesterol Diabetes Paternal Grandfather Diabetes High blood pressure High cholesterol Paternal Grandmother Diabetes High blood pressure High cholesterol Other No family history of mental disorder Surgical History Surgical History Hx of wisdom tooth extraction Social History Social History Housing: Apartment Are you a primary career development coordinator to a significant other at home: No Do you presently have visiting nurse or other home services: No Patient Tobacco Use Status: Never used Tobacco e-Cigarette/Vaping Use: Never Used Second Hand Smoke Exposure: No Use of substances other than those prescribed or required for medical reasons: No Have you been hit, kicked, punched, or otherwise hurt by someone within the past year? 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: No Cognitive needs: No Hearing needs: No Vision needs: No Meds Allergies Allergy/AdvReac Type Severity Reaction Status Date / Time naproxen Allergy Mild Rash Verified 01/17/24 08:45 Home Medications ?Medication ?Instructions ?Recorded ?Confirmed ?Last Taken ?Type adapalene 0.1 % topical cream 1 appl topical BEDTIME PRN 10/19/23 02/22/24 02/29/24 History (Differin) axillary rash amlodipine 5 mg tablet 7.5 mg PO QPM 02/22/24 02/22/24 02/29/24 History losartan 50 mg tablet 50 mg PO QPM 02/22/24 02/22/24 02/29/24 History meloxicam 15 mg tablet 15 mg PO QPM 02/22/24 02/22/24 02/23/24 History Exam Airway Loose/Missing/Broken Teeth: No Assessment and Plan Final Anesthetic Review NPO: Yes ASA Class: II Final Preanesthetic Review: No Changes in Pt Med Stat, Meds/Allgs Chart Reviewed, Consent Obtained/Reviewed and Anes Risks/Benef Reviewed Patient Risk: Intermediate Procedure Risk: Intermediate Assessment/Block/Sedation in SS: Assess/Block/Sedation-SS Anesthetic Plan Anesthetic Plan: GA Disposition: Standard PACU
[2024-03-01] VITALS (9 sets, daily range): BP systolic 114–148; BP diastolic 43–88; PULSE 72–94; RESP 14–18; TEMP 36.5–36.6; O2SAT 93–100; BMI 24.1
--- NOTE | ~2024-03-01 | FL_ITS ---
EXAMINATION: XR FLUOROSCOPY WITH IMAGES CLINICAL INFORMATION: C6-7 ACDF COMPARISON: Cervical spine x-ray September 2023 TECHNIQUE: Fluoroscopy Supervised By: Daquan Fluoroscopy Time: 6.3 seconds. Cumulative Dose: 0.28 mGy. DAP: 0.09 Gycm2. Images: 3. FINDINGS: Lateral and AP view of the cervical spine demonstrate surgical marker placement and ACDF hardware at C6-7 FL/FL guidance in OR IMPRESSION: Intraoperative fluoroscopy guidance for cervical spine surgery
[2024-03-01] MEDS: methocarbamoL 750 MG TABLET PO (06:25)
[2024-03-01] MEDS: Gabapentin 300 MG CAPSULE PO (06:25)
[2024-03-01] MEDS: Lactated Ringers 1,000 ML 100 ML IVCONT (06:25)
--- NOTE | 2024-03-01 07:01 | MHC.SHP ---
Pre-Procedural Eval Section A - 24 Hr Update-Section A only Date of Service: 03/01/24 The patient is an INPATIENT: No Changes since office visit: No Cold of Flu in the past 2 weeks, No New Medical Problems, No Changes in Medication and No Patient answered all questions The patient has been examined within 24 hours of the surgical procedure. The History & Physical has been completed within 30 days and I have reviewed it.: No Section B - Complete if H&P > 30 days Chief Complaint: Radiculopathy, cervical region Allergies: Allergies Allergy/AdvReac Type Severity Reaction Status Date / Time naproxen Allergy Mild Rash Verified 01/17/24 08:45 Review of Systems Sugical H&P ROS: Negative: Constitution, Cardiovascular, Respiratory, Neurological, Psychiatric, Hem-Onc, Allergic/Immunologic, Gastrointestinal, Genitourinary, Musculoskeletal, Integumentary, Endocrine and Eyes/Ears/Nose/Throat Exam Surgical H&P Exam: Not Evaluated: HEENT, Not Evaluated: Heart, Not Evaluated: Lungs, Not Evaluated: Extremities, Not Evaluated: Abdomen, Not Evaluated: Skin and Not Evaluated: Neurological Plan Diagnosis/Plan: Unchanged C6-7 ACDF Time Spent With Patient Time: Total time managing care of this patient today _5___ minutes.
--- NOTE | 2024-03-01 09:09 | PM.DS ---
DS: Providers Provider Date of Service: 03/01/24 Date of discharge: 03/01/24 Primary care physician: Torey Cabrera MD Admitting clinician: Moise Butt DS: Diagnosis Discharge Diagnosis (1) Cervical radiculitis: Status: Acute DS: Summary Time Attestation Discharge Coordination Time (in mins): 4 Quality: Safe Use of Opioids Does Pt have an Active Cancer Diagnosis on the Problem List?: No Quality: Stroke Does the patient have a stroke diagnosis?: No Physical Exam Vital Signs: Vital Signs: Last Vital Signs Temp 97.7 F 03/01/24 06:15 Pulse 92 03/01/24 06:15 Resp 18 03/01/24 06:15 BP 124/79 03/01/24 06:15 Pulse Ox 98 03/01/24 06:15 O2 Del Method Room Air 03/01/24 06:15 BMI result Body Mass Index 24.1 Discharge Plan Discharge Patient Disposition: Home, Self-Care Referrals: Torey Cabrera MD [Primary Care Provider] - 1 Week Discharge Medications: New oxycodone 5 mg tablet 5 mg PO Q4H PRN (Reason: pain) Qty: 20 0RF Rx Instructions: Partial Fill upon patient request. docusate sodium [Colace] 100 mg capsule 100 mg PO BID Qty: 20 0RF Continued montelukast 10 mg tablet 10 mg PO QPM 90 Days Qty: 90 2RF losartan 50 mg tablet 50 mg PO QPM meloxicam 15 mg tablet 15 mg PO QPM amlodipine 5 mg tablet 7.5 mg PO QPM adapalene [Differin] 0.1 % cream 1 appl topical BEDTIME PRN (Reason: axillary rash) Discharge Orders: Discharge Order (Routine); Ordered 03/01/24 Ordered By: Herbert Thorpe Diet: Advance to usual diet Activity on Discharge: As tolerated Activity Restrictions/Additional Instructions: After your spinal surgery we ask you to observe the following restrictions/guidelines: Activity: It is normal to feel some discomfort as you increase your activity, but that will improve with time. We ask you avoid heavy lifting or acitivities that cause pain. As a general rule, 8lbs is a safe limit for lifting right after surgery. Walk as much as you feel comfortable but not to exhaustion. You will feel extra tired the first few days after surgery. Stay well hydrated. It is OK to walk up and down stairs You may return to driving when you are off narcotics (such as vicodin, oxycodone, dilaudid, etc), and you are back to normal functional capacity. If you have any concerns please check with office before driving. Return to work is specific to each patient and each surgery, so please speak with your doctor/PA at first follow up. Please bring paperwork such as FMLA at that time if you need it filled out. Medications: For optimum pain control, it is best to start with a combination of 500 mg of Tylenol every 4 hours with 600 mg of Motrin every 8 hours, and use narcotics as needed in between for breakthrough pain. We will give you a short supply of narcotics after surgery (usually one weeks worth). If you need more please call the office but do not use more than prescribed. You will need to give our office 48 hours notice if you need narcotics refilled and we do not fill narcotics on weekends or evenings. If you are on a narcotic, it is a good idea to take a stool softener such as colace or senna to avoid constipation If you take blood thinner such as aspirin, Plavix, Coumadin, Effient, Eliquis etc for conditions such as Afib, DVT, Pulmonary embolus, coronary disease, stents etc please speak with your surgeon about specific details as to when you can resume these medications. You can resume NSAIDs on post op day 1 (eg: Motrin, Naproxen, etc). Follow up: Please call the office, , after surgery to arrange a 3 week follow up for wound check. Wound Care: You may remove your dressing on the first day after surgery. ?You may ?leave open to air. Please do not remove the steri strips underneath. they will fall off on their own in one week. IT IS NORMAL FOR THE WOUND TO OOZE OR BE BLOODY FOR A FEW DAYS AFTER SURGERY. ?IF THIS HAPPENS JUST PLACE NEW DRESSING OVER IT TO AVOID STAINING CLOTHES. You may shower on post op day # 1 We ask that you do not let the water soak the wound. If it does get wet, just towel dry lightly. Please do not scrub your incision or place any type of chemical/ointment on the wound. No tub baths, pools or jacuzzis for one month. If you have any leaking or redness from your wound, or fevers, please call office Print Language: Maltese
--- NOTE | 2024-03-01 09:14 | W.PM.OPN ---
Operative Note Operative Note Date of Service: 03/01/24 Narrative: Preoperative Diagnosis: Cervical radiculopathy, left side Procedure: C6-7 Anterior discectomy, arthrodesis and implantation cage ; C6-7 anterior instrumentation ; local autograft; microscope Informed Consent was obtained for this operation. I have explained the nature, purpose and benefits of the operation. I have discussed the risks and benefit of the operation including possible complications or adverse events with patient/family. Alternative(s) were discussed with the patient with their relative benefits and risks as well as the consequences of not accepting the operation were included in obtaining consent. Surgeon: JONNA SALAZAR MD, PHD Procedure Assisted By: Herbert livingston Description of Procedure: This patient is a 73-year-old male suffering from a left cervical radiculopathy due to a large disc herniation C6-7 compressing the left C7 nerve root. He was offered an anterior diskectomy and fusion of this level. The procedure complications were explained. The patient was consented. The patient was brought to the operating room and endotracheally intubated. The patient was put in supine position with slight extension of the neck. Prep and drape was done followed by timeout. A mid cervical incision was made followed by opening of the platysma. The prevertebral fascia was reached following the natural planes while the physician orthopaedic physician assistant provided manual retraction. The prevertebral fascia was opened to expose the disc space. A spinal needle was placed in the disk space to confirm the correct level with xray. The longus colli muscles were released bilaterally and a self retaining retractor was inserted. Two Finley pins were placed in the C6-7 vertebral bodies and distraction was give over the interspace. The discectomy was completed toward the posterior annulus of the disc. The microscope was brought in. The remainder of the discectomy was completed. The posterior ligament was opened and resected to expose the underlying dura. Osteophytes were resected from the body of C6 and C7 and saved for autograft. On the left side a large disc herniation was removed which immediately led to decompression of the nerve root and thecal sac. The endplates were prepared after which a 6 mm cage filled with autograft was inserted into the disc space. A separate attached plate was locked down with 2 x 14 mm screws as anterior instrumentation. Final x-rays in AP and lateral projection showed a satisfactory position of the implant. The physician orthopaedic physician assistant took over. The Finley pin was removed. Hemostasis was done. He closed the incision in 2 layers with a 3-0 Vicryl. Steri-Strips used to approximate incision. An OpSite with Tegaderm was used to cover the incision. All sponge and needle counts were correct. Patient was extubated and transported in stable is to recovery room. Anesthesia: General Estimated Blood Loss (ml): 10 mL Duration of Surgery: 55 minutes Postoperative Plan: Discharge home Complications: None
--- NOTE | 2024-03-01 10:12 | P.DS_ITS ---
DS: Providers Provider Date of Service: 03/01/24 Primary care physician: Torey Cabrera MD DS: Diagnosis Discharge Diagnosis (1) Cervical radiculitis: Status: Acute DS: Summary Time Attestation Discharge Coordination Time (in mins): 3 Quality: Safe Use of Opioids Does Pt have an Active Cancer Diagnosis on the Problem List?: No Quality: Stroke Does the patient have a stroke diagnosis?: No Physical Exam Vital Signs: Vital Signs: Last Vital Signs Temp 98 F 03/01/24 09:20 Pulse 94 03/01/24 10:05 Resp 18 03/01/24 10:05 BP 131/83 03/01/24 10:05 Pulse Ox 93 03/01/24 10:05 O2 Del Method Room Air 03/01/24 10:05 O2 Flow Rate 2 03/01/24 09:50 BMI result Body Mass Index 24.1 Discharge Plan Discharge Patient Disposition: Home, Self-Care Discharge Medications: New docusate sodium [Colace] 100 mg capsule 100 mg PO BID Qty: 20 0RF oxycodone 5 mg tablet 5 mg PO Q4H PRN (Reason: pain) Qty: 30 0RF Rx Instructions: Partial Fill upon patient request. Continued montelukast 10 mg tablet 10 mg PO QPM 90 Days Qty: 90 2RF losartan 50 mg tablet 50 mg PO QPM meloxicam 15 mg tablet 15 mg PO QPM amlodipine 5 mg tablet 7.5 mg PO QPM adapalene [Differin] 0.1 % cream 1 appl topical BEDTIME PRN (Reason: axillary rash) Discharge Orders: Discharge Order (Routine); Ordered 03/01/24 Ordered By: Herbert Thorpe Diet: Advance to usual diet Activity on Discharge: As tolerated Activity Restrictions/Additional Instructions: After your spinal surgery we ask you to observe the following restrictions/guidelines: Activity: It is normal to feel some discomfort as you increase your activity, but that will improve with time. We ask you avoid heavy lifting or acitivities that cause pain. As a general rule, 8lbs is a safe limit for lifting right after surgery. Walk as much as you feel comfortable but not to exhaustion. You will feel extra tired the first few days after surgery. Stay well hydrated. It is OK to walk up and down stairs You may return to driving when you are off narcotics (such as vicodin, oxycodone, dilaudid, etc), and you are back to normal functional capacity. If you have any concerns please check with office before driving. Return to work is specific to each patient and each surgery, so please speak with your doctor/PA at first follow up. Please bring paperwork such as FMLA at that time if you need it filled out. Medications: For optimum pain control, it is best to start with a combination of 500 mg of Tylenol every 4 hours with 600 mg of Motrin every 8 hours, and use narcotics as needed in between for breakthrough pain. We will give you a short supply of narcotics after surgery (usually one weeks worth). If you need more please call the office but do not use more than prescribed. You will need to give our office 48 hours notice if you need narcotics refilled and we do not fill narcotics on weekends or evenings. If you are on a narcotic, it is a good idea to take a stool softener such as colace or senna to avoid constipation If you take blood thinner such as aspirin, Plavix, Coumadin, Effient, Eliquis etc for conditions such as Afib, DVT, Pulmonary embolus, coronary disease, stents etc please speak with your surgeon about specific details as to when you can resume these medications. You can resume NSAIDs on post op day 1 (eg: Motrin, Naproxen, etc). Follow up: Please call the office, , after surgery to arrange a 3 week follow up for wound check. Wound Care: You may remove your dressing on the first day after surgery. ?You may ?leave open to air. Please do not remove the steri strips underneath. they will fall off on their own in one week. IT IS NORMAL FOR THE WOUND TO OOZE OR BE BLOODY FOR A FEW DAYS AFTER SURGERY. ?IF THIS HAPPENS JUST PLACE NEW DRESSING OVER IT TO AVOID STAINING CLOTHES. You may shower on post op day # 1 We ask that you do not let the water soak the wound. If it does get wet, just towel dry lightly. Please do not scrub your incision or place any type of chemical/ointment on the wound. No tub baths, pools or jacuzzis for one month. If you have any leaking or redness from your wound, or fevers, please call office Print Language: [place]
== END 2024-03-01 11:22 | disposition home or self-care (01) ==
PROVIDERS: PCP Family Medicine; Visit Provider Neurological Surgery
PROC: (CPT 22551; principal; 2024-03-01 07:30)
DX: M50.123 Cervical disc disorder at C6-C7 level with radiculopathy (principal); R53.1 Weakness; I10 Essential (primary) hypertension; R94.4 Abnormal results of kidney function studies; Z79.899 Other long term (current) drug therapy
CPT/HCPCS: 22551; 22853; 20936; 22845; C1713; J0131; J0690; J1100; J2250; J2405; J2704; J3010; L8699

== ENCOUNTER → 2024-03-01 06:01 | Outpatient (BNV) | payer OTHER, SELFPAY | PROVIDERS: PCP Family Medicine; Visit Provider Physician Assistant | DX: M54.12 Radiculopathy, cervical region (principal) | CPT/HCPCS: 20936; 22551; 22845; 22853; 99499 ==

== ENCOUNTER 2024-03-22 09:22 | Outpatient (AMB) | payer OTHER, SELFPAY ==
--- NOTE | 2024-03-22 09:27 | A.SPINEOV_ITS ---
Intake Visit Reasons: 1st post op Intake Note: Mr. Cali is here today for 1st post op appointment. 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 He reports that he has been doing very well since his surgery. He is very satisfied with the surgery. He states that his bilateral upper extremities have full strength, and he no longer suffers from shooting pains down his left arm. He also has no numbness/weakness in his left arm. We discussed postoperative healing course, and restrictions going forward. Overall he is healing very well at this time. He is predominantly taking cnxy-kwm-znchxko pain medications but does take one oxycodone per day still. No new neurological deficits. Sensation grossly intact. Patient is able to ambulate well, rises from a seated position without difficulty. Incision site is closed, well healing, with no signs of drainage. I partially refilled his oxycodone. We will follow-up with the patient in 6 weeks for his 2nd postoperative visit. At that time we will get x-rays to revie w with the patient. Kuldeep Butt MD,PhD [facility] Orders: Orders XR cervical spine 4V 03/22/24 Z98.1 - Arthrodesis status Medications: Refilled oxycodone Partial Fill upon patient request. 5 mg PO Q4H PRN 14 tabs 0RF pain Coding Level of Care Code Global (25593) Diagnoses S/P cervical spinal fusion Z98.1
--- NOTE | 2024-03-22 09:27 | HO.SPINEOV ---
Intake Visit Reasons: 1st post op Allergies naproxen Allergy (Mild, Verified 03/22/24 09:27) Rash Assessment & Plan Assessment & Plan (1) S/P cervical spinal fusion: Code(s): Z98.1 - Arthrodesis status Category: Surgical Plan Procedure: C6-7 ACDF Ganga comes in today for his 1st postoperative visit. He reports he has been doing very well since his surgery and feels much better than he did preoperatively. With the shooting pain that goes down his left arm into his left index finger has resolved. He denies any numbness/weakness/tingling in his left arm. He feels he has full strength in his left upper extremity. The only significant complaint he has at this time is some posterior neck pain which he reports as a ?pulling/tenderness sensation. We discussed postoperative healing course and pain control medications. I answered all of his questions to the best of my ability. No new neurological deficits. The patient has full strength of his bilateral upper extremities. No Camacho's. Patient is able to ambulate well, rises from a seated position without difficulty. Incision site is closed, well healing, with no signs of drainage. We will follow-up with the patient in 6 weeks for his 2nd postoperative visit. At that time we will get x-rays to review with the patient. Kuldeep Butt MD,PhD [facility] Orders: Orders XR cervical spine 4V Today Z98.1 - Arthrodesis status Medications: Refilled oxycodone Partial Fill upon patient request. 5 mg PO Q4H PRN 14 tabs 0RF pain Coding Level of Care Code Global (64201) Diagnoses S/P cervical spinal fusion Z98.1
== END 2024-03-22 09:41 | disposition home or self-care (01) ==
PROVIDERS: PCP Family Medicine; Visit Provider Physician Assistant
DX: Z98.1 Arthrodesis status (principal)
CPT/HCPCS: 99024

== ENCOUNTER 2024-03-22 09:22 | Outpatient (REF) | payer OTHER, SELFPAY | END 2024-03-22 09:23 | disposition home or self-care (01) | LOC: HO.HOSX 09:22 | PROVIDERS: PCP Family Medicine; Visit Provider Physician Assistant | DX: Z47.89 Encounter for other orthopedic aftercare (principal); Z98.1 Arthrodesis status | CPT/HCPCS: 99212 ==

== ENCOUNTER 2024-05-14 12:02 | Outpatient (REF) | payer OTHER, SELFPAY ==
--- NOTE | ~2024-05-14 | XR_ITS ---
EXAMINATION: XR CERVICAL SPINE CLINICAL INFORMATION: Status post arthrodesis COMPARISON: Surgical images from 03/01/2024 TECHNIQUE: AP, lateral neutral, flexion, extension views and open-mouth view FINDINGS: There is straightening of cervical lordosis. Patient is status post ACDF placement at the level of C6-C7, with well positioned hardware there is no instability on flexion and extension views. There is mild narrowing of C4-C5, C5-C6 intervertebral disc spaces. There is no spondylolysis or listhesis. Soft tissues unremarkable. XR/XR cervical spine 4V IMPRESSION: Well-positioned ACDF at the level of C6-C7 without evidence of hardware failure.
== END 2024-05-14 12:03 | disposition home or self-care (01) ==
LOC: HO.XRAY 12:02
PROVIDERS: PCP Family Medicine; Visit Provider Physician Assistant
DX: Z98.1 Arthrodesis status (principal)
CPT/HCPCS: 72050

== ENCOUNTER 2024-05-16 11:22 | Outpatient (AMB) | payer OTHER, SELFPAY ==
--- NOTE | 2024-05-16 11:30 | A.SPINEOV_ITS ---
Intake Visit Reasons: 2nd post op with xrays Intake Note: Mr. Cali is here today for his 2nd post op appointment with xrays. 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 His X-ray appears stable with no changes from flouroscopy. I completed his [employer] paperwork and recommended that he return to normal duty without restrictions. He continues to heal well and reports resolution of symptoms. He asked a few questions regarding physical therapy, which I do not believe he needs at this time. Patient is well-appearing, has no obvious neurological deficits, is able to ambulate well and rises from seated position without difficulty. Anterior incision site is well healed and closed. There is no need for continued routine follow-up with Ganga. He may be discharged as a patient. Kuldeep Butt MD,PhD [facility] Coding Level of Care Code Global (37950) Diagnoses S/P cervical spinal fusion Z98.1
== END 2024-05-16 11:46 | disposition home or self-care (01) ==
PROVIDERS: PCP Family Medicine; Visit Provider Physician Assistant
DX: Z98.1 Arthrodesis status (principal)
CPT/HCPCS: 99024

== ENCOUNTER → 2024-05-16 11:22 | Outpatient (BNVA) | payer OTHER, SELFPAY | PROVIDERS: PCP Family Medicine; Visit Provider Physician Assistant | DX: Z98.1 Arthrodesis status (principal) | CPT/HCPCS: 99212 ==

== ENCOUNTER 2024-06-12 08:28 | Outpatient (AMB) | payer OTHER, SELFPAY ==
--- NOTE | 2024-06-12 08:32 | A.OFFPC_ITS ---
Vital Signs 06/12/24 08:33 Height 6 ft 1 in Weight 191 lb BMI 25.2 BP 122/62 Blood Pressure Location Rt brachial Position Sitting Respiration 13 Pulse 86 Pulse Source Pulse Oximeter Pulse Oximetry (%) 97 Oxygen Delivery Method Room Air Intake Visit Reasons: f/u elevated fasting blood sugars Intake Note: Patient is here for a follow up and reports he had surgery in February on his neck. Patient reports he would like to cancel the meloxicam. Patient reports he has no other concerns. Resource Coordinator Required: No Accompanied by: Self / Same As Patient Allergies naproxen Allergy (Mild, Verified 06/12/24 08:40) Rash Tobacco use date assessed: 01/17/24 Dental Screening Dental Screen Date: 01/17/24 HPI f/u elevated fasting blood sugars HPI Details 43 y/o male presents to f/u elevated FBS . Last A1c 01/17/24 5.7% - had 2 rounds of steroids due to issues with his neck. A1c today 06/12/24 5.7% - unchanged from prior. Surgery in February for Shoulder pain and radiculopathy Blood pressure today 122/62. He is on losartan 50mg. [facility] Medical History Hemangioma Renal cyst Cervical radiculitis Allergies High blood pressure Surgical History Hx of wisdom tooth extraction Family History Father High blood pressure High cholesterol Mother High blood pressure High cholesterol Maternal Grandmother High blood pressure High cholesterol Diabetes Paternal Grandfather Diabetes High blood pressure High cholesterol Paternal Grandmother Diabetes High blood pressure High cholesterol Other No family history of mental disorder Social History Housing: Apartment Are you a primary overnight caregiver to a significant other at home: No Do you presently have visiting nurse or other home services: No Patient Tobacco Use Status: Never used Tobacco e-Cigarette/Vaping Use: Never Used Second Hand Smoke Exposure: No service: Yes 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 Olu Jerez, Tonya Duron, Rod Chen and colleagues, with an educational beba from [employer]. Review of Systems Const Denies chills, Denies fatigue, Denies fever(s), Denies headache(s) and Denies weakness ENT Denies dizziness and Denies headache(s) Card Denies dyspnea Resp Denies cough, Denies dyspnea, Denies wheezing and Denies other (shortness of breath) Musc Denies numbness and Denies tingling Neuro Denies dizziness, Denies headache(s), Denies numbness, Denies tingling and Denies weakness Psych Denies anxiety and Denies depression Endo Denies fatigue Aller/Immun Denies wheezing Physical exam (Primary Care) Vital Signs: Last Vital Signs Pulse 86 06/12/24 08:33 Resp 13 06/12/24 08:33 BP 122/62 06/12/24 08:33 Pulse Ox 97 06/12/24 08:33 Oxygen Delivery Method Room Air 06/12/24 08:33 BMI result Body Mass Index 25.2 Tobacco/Smoking Status: Tobacco use Status Tobacco use date assessed 01/17/24 06/12/24 08:41 Patient Tobacco Use Status Never used Tobacco 06/12/24 08:41 e-Cigarette/Vaping Use Never Used 06/12/24 08:41 Thrive Assessment: Date of Thrive Assessment Date Thrive assessed 01/17/24 06/12/24 08:41 Const General: well developed; No acute distress Nutritional Appearance: well nourished Orientation/consciousness: patient oriented x3 HENMT Head: Yes normocephalic and Yes atraumatic Eyes General: appearance normal, both eyes and all related structures Pupils: Equal, round and reactive pupils present EOM: EOMs intact bilaterally Resp Effort & Inspection: normal respiratory effort Neuro General: patient oriented x3 and gait normal Cranial nerves: Yes Equal, round and reactive pupils present Psych Affect: normal affect Results AMB Hemoglobin A1c AMB Hemoglobin A1c 5.7 % Last Edit by BENTON Quesada on 06/12/24 09:0 2 Assessment and Plan Assessment & Plan (1) Elevated fasting blood sugar: Code(s): R73.01 - Impaired fasting glucose Plan: A1c?still?5.7%. Certainly?elevated?fasting ?blood?sugar?and?patient?had?had?steroids?prior?to?his?surgery?but?not?after. Will?repeat?again?in?3?months.??If?A1c?still?5.7?or?higher,?would?diagnosed?as?p re?diabetes. (2) Cervical radiculitis: Code(s): M54.12 - Radiculopathy, cervical region Plan: Now?s/p?C6/7?cervical?fusion Radicular?symptoms?in?left?shoulder?and?arm?have?resolved He?has?discontinued?meloxicam He?is?gradually?improving?exercise Follow-up?with?neurosurgery?as?recommended (3) Hypertension: Code(s): I10 - Essential (primary) hypertension Plan: Blood?pressure?is?controlled.??Goal?is?less?than?140/90 Continue?current?medication Orders: Orders Comprehensive [place]. Panel Fast Today Z00.00 - Encounter for general adult medical examination without abnormal findings Prostate Specific Antigen Scr Today Z12.5 - Encounter for screening for malignant neoplasm of prostate AMB Hemoglobin A1c Today R73.01 - Impaired fasting glucose Lipid Panel Today Z00.00 - Encounter for general adult medical examination without abnormal findings Microalbumin, Random (w Creat) Today I10 - Essential (primary) hypertension TSH reflex Free T4 Today Z00.00 - Encounter for general adult medical examination without abnormal findings UA and rflx microscopic Today Z00.00 - Encounter for general adult medical examination without abnormal findings Hemoglobin A1c Today R73.01 - Impaired fasting glucose Coding Level of Care Code Est Pt Level 4 (02422) Diagnoses Elevated fasting blood sugar R73.01 Cervical radiculitis M54.12 Hypertension I10
[2024-06-12 08:33] VITALS: BP 122/62; PULSE 86; RESP 13; O2SAT 97; BMI 25.2
== END 2024-06-12 09:13 | disposition home or self-care (01) ==
PROVIDERS: PCP Family Medicine; Visit Provider Family Medicine
DX: R73.01 Impaired fasting glucose (principal); M54.12 Radiculopathy, cervical region; I10 Essential (primary) hypertension
CPT/HCPCS: 83036; 99214

== ENCOUNTER 2024-10-23 07:58 | Outpatient (REF) | payer OTHER, SELFPAY ==
[2024-10-23 09:07] LABS: Estimated Average Glucose 111 mg/dL; Hemoglobin A1C 139.0099 umol/L; Hemoglobin A1c % 5.5 % (<6.0); Total Hemoglobin (HGBA1C) 3788.6716 umol/L
[2024-10-23 09:38] LABS: Appearance Urine Clear; Color Urine Yellow; Glucose Urine UA Negative (Negative); Leukocyte Esterase Urine Negative (Negative); Nitrite Urine Negative (Negative); PH 6.5 (5.0-9.0); Specific Gravity - Urine 1.015 (1.005-1.025); Urine Blood Negative (Negative); Urine Ketones Negative (Negative); Urine Protein Negative (Neg-Trace)
[2024-10-23 09:52] LABS: Alanine Aminotransferase 53 U/L (0-40); Albumin Level 4.5 g/dL (3.5-5.0); Alkaline Phosphatase 55 U/L (39-117); Anion Gap 11 (12-20); Aspartate Amino Transferase 37 U/L (5-37); Bilirubin Total 0.4 mg/dL (0.0-1.0); Blood Urea Nitrogen 11 mg/dL (9-16); Calcium 9.7 mg/dL (8.4-10.2); Carbon Dioxide 28 mmol/L (22-29); Chloride 103 mmol/L (96-108); Cholesterol 156 mg/dL (<200); Estimated Glomerular Filt Rate 58; Glucose Fasting 95 mg/dL (60-99); HDL Cholesterol 42 mg/dL (>40); LDL Cholesterol Calculated 102 mg/dL (<100); Sodium 138 mmol/L (135-145); Total Protein 7.5 g/dL (6.5-8.0); Triglycerides 64 mg/dL (<150)
[2024-10-23 09:57] LABS: TSH reflex Free T4 1.91 uIU/mL (0.32-4.0)
[2024-10-23 10:02] LABS: Prostate Specific Antigen Scr 1.41 ng/mL (<0.05-4.0)
[2024-10-23 10:29] LABS: Creatinine Urine 175.86 mg/dL; Microalbum/Creatinine Ratio Ur 12.5 ug/mg cr (<30)
== END 2024-10-23 07:59 | disposition home or self-care (01) ==
LOC: HO.LAB 07:58
PROVIDERS: PCP Family Medicine; Visit Provider Family Medicine
DX: Z00.00 Encounter for general adult medical examination without abnormal findings (principal); R73.01 Impaired fasting glucose; I10 Essential (primary) hypertension; Z12.5 Encounter for screening for malignant neoplasm of prostate
CPT/HCPCS: 36415; 80053; 80061; 81003; 82043; 82570; 83036; 84153; 84443

== ENCOUNTER 2024-10-24 11:20 | Outpatient (AMB) | payer OTHER, SELFPAY ==
--- NOTE | 2024-10-24 11:55 | MHC.PC.OV ---
Vital Signs 10/24/24 12:02 Height 6 ft 1 in Weight 196 lb 6 oz BMI 25.9 BP 120/70 Blood Pressure Location Rt brachial Position Sitting Respiration 16 Pulse 80 Pulse Source Pulse Oximeter Pulse Oximetry (%) 97 Oxygen Delivery Method Room Air Intake Visit Reasons: CPE with f/u labs and health maint Allergies naproxen Allergy (Mild, Verified 10/24/24 11:57) Rash Tobacco use date assessed: 10/24/24 Dental Screening Dental Screen Date: 10/24/24 Did you have a dental visit in the last 12 months?: Yes Did you have a dental problem in the last 6 months where you did not have access to dental care?: No HPI CPE with f/u labs and health maint HPI Details 44 y/o male presents for a CPE with f/u labs and health maintenance. Labs drawn 10/23/24. Reviewed labs with pt. Elevated ALT of 53. Triglycerides 64. TC 156. LDL 102. HDL 42. A1c 5.5%. Blood pressure today 120/70, 80p. He is on amlodipine 7.5mg, losartan 50mg daily. [facility] Medical History Hemangioma Renal cyst Cervical radiculitis Allergies High blood pressure Surgical History Hx of wisdom tooth extraction Family History Father High blood pressure High cholesterol Mother High blood pressure High cholesterol Maternal Grandmother High blood pressure High cholesterol Diabetes Paternal Grandfather Diabetes High blood pressure High cholesterol Paternal Grandmother Diabetes High blood pressure High cholesterol Other No family history of mental disorder Social History Housing: Apartment Are you a primary respiratory care technician to a significant other at home: No Do you presently have visiting nurse or other home services: No Patient Tobacco Use Status: Never used Tobacco e-Cigarette/Vaping Use: Never Used Second Hand Smoke Exposure: No service: Yes 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 1. Little interest or pleasure in doing things: not at all 2. Feeling down, depressed, or hopeless: not at all 3. Trouble falling or staying asleep, or sleeping too much: not at all 4. Feeling tired or having little energy: not at all 5. Poor appetite or overeating: not at all 6. Feeling bad about yourself - or that you are a failure or have let yourself or your family down: not at all 7. Trouble concentrating on things, such as reading the newspaper or watching television: not at all 8. Moving or speaking so slowly that other people could have noticed. Or the opposite - being so fidgety or restless that you have been moving around a lot more than usual: not at all 9. Thoughts that you would be better off or of hurting yourself in some way: not at all Total score: 0 Depression Screening Interpretation: Negative Depression Screening Done: Yes 26234 - PHQ-9 Billing: Yes Source: Developed by Drs. Olu Jerez, Tonya Duron, Rod Chen and colleagues, with an educational beba from [employer]. Thrive Questionnaire Date Thrive assessed: 10/24/24 I am a: Patient What is your living situation today?: I have a steady place to live Within the past 12 months, did the food you bought not last and you didn't have the money to get more?: Never true Within the past 12 months, did you worry whether your food would run out before you got money to buy more?: Never true Do you have trouble paying for medicines?: No Do you have trouble getting transportation to medical appointments?: No Do you have trouble paying your heating and electricity bill?: No Do you have trouble taking care of your child, family member or friend?: No Do you have trouble with day-to-day activities such as bathing, preparing meals, shopping, managing finances, etc.?: No Are you currently unemployed and looking for a job?: No Are you interested in more education?: No Please select the resources that you would like help with: None Currently or been in a relationship where the following occur: No concerns reported THRIVE Score: 0 AUDIT C Alcohol Use Questionnaire (AUDIT-C) 1. How often do you have a drink containing alcohol?: Monthly or less 2. How many drinks containing alcohol do you have on a typical day when you are drinking?: 1 or 2 3. How often do you have six or more drinks on one occasion?: Never Total Score: 1 NELLI-7 AMB Questionnaire NELLI-7 Date NELLI - 7 assessed: 10/24/24 Feeling nervous, anxious, or on edge: 0 = Not at all Not being able to stop or control worryin = Not at all Worrying too much about different things: 0 = Not at all Trouble relaxin = Not at all Being so restless that it is hard to sit still: 0 = Not at all Becoming easily annoyed or irritable: 0 = Not at all Feeling afraid as if something awful might happen: 0 = Not at all Total NELLI-7 score (0-4 normal; 5-9 mild; 10-14 moderate; 15-21 severe): 0 Source: Developed by Drs. Olu Jerez, Tonya Duron, Rod Chen and colleagues, with an educational beba from [employer]. NELLI-7 Assessment Billing NELLI-7 Assessment Tool: NELLI-7 Assessment 87760 Review of Systems Const Denies chills, Denies fatigue, Denies fever(s), Denies headache(s) and Denies weakness Eyes Denies change in vision ENT Denies dizziness, Denies headache(s), Denies hearing loss, Denies nasal congestion, Denies sinus pain, Denies sinus pressure and Denies sore throat Card Denies chest pain, Denies lightheadedness, Denies dyspnea and Denies other (palpitations) Resp Denies cough, Denies dyspnea and Denies wheezing GI Denies abdominal pain, Denies melena, Denies hematochezia, Denies change in bowel habits, Denies dyspepsia and Denies nausea Denies hematuria and Denies dysuria Musc Denies abnormal gait, Denies myalgias, Denies arthralgias, Denies numbness and Denies tingling Skin/Breast Denies rash, Denies unusual bruising and Denies wounds Neuro Denies abnormal gait, Denies dizziness, Denies headache(s), Denies memory loss, Denies numbness, Denies Sensory deficit (Neuro), Denies tingling and Denies weakness Psych Denies anxiety, Denies depression and Denies memory loss Endo Denies cold intolerance, Denies fatigue, Denies heat intolerance, Denies polydipsia and Denies polyuria Zoran/Lymph Denies easy bleeding and Denies easy bruising Aller/Immun Denies wheezing Physical exam (Primary Care) Vital Signs: Last Vital Signs Pulse 80 10/24/24 12:02 Resp 16 10/24/24 12:02 BP 120/70 10/24/24 12:02 Pulse Ox 97 10/24/24 12:02 Oxygen Delivery Method Room Air 10/24/24 12:02 BMI result Body Mass Index 25.9 Tobacco/Smoking Status: Tobacco use Status Tobacco use date assessed 10/24/24 10/24/24 12:05 Patient Tobacco Use Status Never used Tobacco 10/24/24 11:56 e-Cigarette/Vaping Use Never Used 10/24/24 11:56 PHQ-9: PHQ-9 Score PHQ-9: Total score 0 10/24/24 12:05 Depression Screening Interpretation: Negative Thrive Assessment: Date of Thrive Assessment Date Thrive assessed 10/24/24 10/24/24 11:56 Currently or been in a relationship where the following occur: No concerns reported Const General: no acute distress, well developed, alert and awake Nutritional Appearance: well nourished Orientation/consciousness: patient oriented x3 HENMT Head: Yes normocephalic and Yes atraumatic Ears: hearing grossly normal bilaterally and TM's normal bilaterally General nose exam: Normal external nose present and Normal nares present Mouth: Normal oral and palatal mucosa present and moist mucous membranes Teeth and gingiva: dentition normal Throat: Yes posterior oropharynx normal Eyes General: appearance normal, both eyes and all related structures Pupils: Equal, round and reactive pupils present and Pupil accommodation reflex normal EOM: EOMs intact bilaterally Neck Neck: Yes normal visual inspection, Yes no lymphadenopathy and Yes trachea midline Thyroid: Thyroid normal Carotids: no bruits Lymphatic: no lymphadenopathy noted Chest Chest palpation & inspection: normal inspection of the chest Resp Effort & Inspection: normal respiratory effort Auscultation: clear to auscultation bilaterally Cardio Rate: regular rate Rhythm: regular rhythm Heart sounds: S1 normal heart sound present, S2 normal heart sound present, no gallops, no murmurs and no rubs Bruits: no abdominal aortic bruits and no carotid bruits GI Palpation (GI): No Abdominal aortic bruit present, Soft to palpation, nontender, No hepatosplenomegaly present and No Rebound tenderness present Auscultation: normal bowel sounds General: Yes no CVA tenderness Back/Spine/Pelvis Back: no CVA tenderness Cervical Spine: cervical ROM normal and No Cervical spine tenderness Thoracic/Lumbar Spine: thoraco-lumbar ROM normal, No pain with thoraco-lumbar ROM, No thoracic spinal tenderness and No lumbar spinal tenderness Skin Lesions: no lesions Rashes: no rashes Trauma: no lacerations or abrasions Wounds: no wounds Nails: normal Neuro General: patient oriented x3 Cranial nerves: Yes Equal, round and reactive pupils present Cognition (Neuro): normal cognition Gait exam (Neuro): Normal gait present Motor exam (neuro): 5/5 motor strength present throughout Sensory Exam: No Sensory deficit (Neuro) Deep tendon reflexes (DTR's): Right patellar reflex intensity grade: 2+ and Left patellar reflex intensity grade: 2+ Extrem General: Yes normal to inspection and No edema Psych Appearance: grossly normal Affect: normal affect Attitude: cooperative Thought process: Normal thought process present Coding Level of Care Code Est Pt Level 3 (31408) Est Pt Prev Care 40-64y(00882) Diagnoses Adult general medical exam Z00.00 Elevated liver enzymes R74.8 Elevated fasting blood sugar R73.01 Mild renal insufficiency N28.9 Hypertension I10 Screening for prostate cancer Z12.5 Additional Codes NELLI-7 Assessment Billing - NELLI-7 Assessment Tool: NELLI-7 Assessment 71074 ([id number]) PHQ-9 - 42527 - PHQ-9 Billing: Yes ([id number]) Assessment & Plan Assessment & Plan (1) Adult general medical exam: Code(s): Z00.00 - Encounter for general adult medical examination without abnormal findings Category: Medical Plan: [age]?male?presents?for?complete?physical?exam Exam?within?normal?limits Encouraged?healthy?diet?with?active?lifestyle?and?plenty?of?exercise (2) Elevated liver enzymes: Code(s): R74.8 - Abnormal levels of other serum enzymes Category: Medical Plan: Liver?enzymes?occasionally?fluctuate?and?abdominal?ultrasound?had?shown?hemangioma Will?continue?to?monitor?periodically (3) Elevated fasting blood sugar: Code(s): R73.01 - Impaired fasting glucose Category: Medical Plan: A1c?at?top?normal?range Likely?some?insulin?resistance Recommended?a?diet?lower?sugars?and?starches (4) Mild renal insufficiency: Code(s): N28.9 - Disorder of kidney and ureter, unspecified Category: Medical Plan: Will?continue?to?monitor Hydrate?well Control?blood?pressure?and?blood?sugars (5) Hypertension: Code(s): I10 - Essential (primary) hypertension Category: Medical Plan: Blood?pressure?is?well?controlled.??Goal?is?less?than?140/90 Continue?current?medication (6) Screening for prostate cancer: Code(s): Z12.5 - Encounter for screening for malignant neoplasm of prostate Category: Medical Plan: PSA?is?within?normal?range
[2024-10-24 12:02] VITALS: BP 120/70; PULSE 80; RESP 16; O2SAT 97; BMI 25.9
== END 2024-10-24 12:25 | disposition home or self-care (01) ==
PROVIDERS: PCP Family Medicine; Visit Provider Family Medicine
DX: Z00.00 Encounter for general adult medical examination without abnormal findings (principal); R73.01 Impaired fasting glucose; R74.8 Abnormal levels of other serum enzymes; N28.9 Disorder of kidney and ureter, unspecified; I10 Essential (primary) hypertension; Z12.5 Encounter for screening for malignant neoplasm of prostate

== ENCOUNTER → 2024-10-24 11:20 | Outpatient (BNVA) | payer OTHER, SELFPAY | PROVIDERS: PCP Family Medicine; Visit Provider Family Medicine | DX: Z00.00 Encounter for general adult medical examination without abnormal findings (principal); Z12.5 Encounter for screening for malignant neoplasm of prostate; R74.8 Abnormal levels of other serum enzymes; R73.01 Impaired fasting glucose; N28.9 Disorder of kidney and ureter, unspecified; I10 Essential (primary) hypertension | CPT/HCPCS: 96127; 99212 ==

== ENCOUNTER 2025-04-25 08:57 | Outpatient (REF) | payer OTHER, SELFPAY ==
[2025-04-25 12:32] LABS: Estimated Average Glucose 111 mg/dL; Hemoglobin A1c % 5.5 % (<6.0)
[2025-04-25 12:41] LABS: Alanine Aminotransferase 54 U/L (0-40); Albumin Level 4.7 g/dL (3.5-5.0); Alkaline Phosphatase 48 U/L (39-117); Anion Gap 10 (12-20); Aspartate Amino Transferase 28 U/L (5-37); Bilirubin Total 0.6 mg/dL (0.0-1.0); Blood Urea Nitrogen 13 mg/dL (9-16); Calcium 9.8 mg/dL (8.4-10.2); Carbon Dioxide 28 mmol/L (22-29); Chloride 107 mmol/L (96-108); Estimated Glomerular Filt Rate 54; Glucose Fasting 90 mg/dL (60-99); Potassium 4.1 mmol/L (3.3-5.1); Sodium 141 mmol/L (135-145); Total Protein 7.5 g/dL (6.5-8.0)
[2025-04-25 13:07] LABS: Creatinine Urine 245.75 mg/dL; Microalbum/Creatinine Ratio Ur 10.5 ug/mg cr (<30)
== END 2025-04-25 08:58 | disposition home or self-care (01) ==
LOC: HO.WFDLDS 08:57
PROVIDERS: Visit Provider Family Medicine
DX: I10 Essential (primary) hypertension (principal); R79.89 Other specified abnormal findings of blood chemistry; R73.01 Impaired fasting glucose; R74.8 Abnormal levels of other serum enzymes; R21 Rash and other nonspecific skin eruption; R19.09 Other intra-abdominal and pelvic swelling, mass and lump; J30.2 Other seasonal allergic rhinitis; Z79.899 Other long term (current) drug therapy; Z00.00 Encounter for general adult medical examination without abnormal findings; N28.9 Disorder of kidney and ureter, unspecified; E78.6 Lipoprotein deficiency
CPT/HCPCS: 36415; 80053; 82043; 82570; 83036; 96127; 99212

== ENCOUNTER 2025-04-25 15:35 | Outpatient (AMB) | payer OTHER, SELFPAY ==
--- NOTE | 2025-04-25 16:46 | MHC.PC.OV ---
Vital Signs 04/25/25 16:53 Height 6 ft 1 in Weight 192 lb BMI 25.3 BP 122/62 Blood Pressure Location Rt brachial Position Sitting Respiration 16 Pulse 75 Pulse Source Pulse Oximeter Temp 98.4 F Temp Source Oral Pulse Oximetry (%) 100 Oxygen Delivery Method Room Air Intake Visit Reasons: f/u hypertension, chronic conditions Intake Note: patient is scheduled for follow-up hypertension, chronic condition patient is has darkness under armpit he said he was prescribed steroid it away but cam back. needs referral document processing specialist. left upper groin has loss skin will like it to be checked to see it's not hernia. Seasonal allergy medication singular nightly and muclexn is taking over counter and allergy is getting worst. Allergies naproxen Allergy (Mild, Verified 04/25/25 16:50) Rash Medication List - Last Reconciled 04/25/25 by Torey Cabrera MD adapalene 0.1% (Differin) 1 appl topical BEDTIME PRN amlodipine 7.5 mg (1.5 x 5 mg) PO QPM 90 days cetirizine 10 mg PO DAILY PRN 30 days docusate sodium (Colace) 100 mg PO BID fluticasone propionate 50 mcg/actuation (Flonase Allergy Relief) 1 spray intranasal Q12H 30 days losartan 50 mg PO QPM 90 days montelukast 10 mg PO QPM 90 days Tobacco use date assessed: 10/24/24 Dental Screening Dental Screen Date: 04/25/25 Did you have a dental visit in the last 12 months?: Yes Did you have a dental problem in the last 6 months where you did not have access to dental care?: No Was dental information given to patient?: No HPI f/u hypertension, chronic conditions HPI Details 44 y/o male presents to f/u HTN, labs. Labs drawn 04/25/25. Reviewed labs with pt. Creatinine level 1.43. A1c 5.5%. AST 28. Elevated ALT of 54. No recent lipid panel. Has complaints of a ? rash under armpit. Had been prescribed steroid before but he states this had come back. Has complaints of a L inguinal hernia. [facility] Medical History Hemangioma Renal cyst Cervical radiculitis Allergies High blood pressure Surgical History Hx of wisdom tooth extraction Family History Father High blood pressure High cholesterol Mother High blood pressure High cholesterol Maternal Grandmother High blood pressure High cholesterol Diabetes Paternal Grandfather Diabetes High blood pressure High cholesterol Paternal Grandmother Diabetes High blood pressure High cholesterol Other No family history of mental disorder Social History Housing: Apartment Are you a primary youth care professional to a significant other at home: No Do you presently have visiting nurse or other home services: No Patient Tobacco Use Status: Never used Tobacco e-Cigarette/Vaping Use: Never Used Second Hand Smoke Exposure: No service: Yes 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 1. Little interest or pleasure in doing things: not at all 2. Feeling down, depressed, or hopeless: not at all 3. Trouble falling or staying asleep, or sleeping too much: not at all 4. Feeling tired or having little energy: not at all 5. Poor appetite or overeating: not at all 6. Feeling bad about yourself - or that you are a failure or have let yourself or your family down: not at all 7. Trouble concentrating on things, such as reading the newspaper or watching television: not at all 8. Moving or speaking so slowly that other people could have noticed. Or the opposite - being so fidgety or restless that you have been moving around a lot more than usual: not at all 9. Thoughts that you would be better off or of hurting yourself in some way: not at all Total score: 0 Source: Developed by Drs. Olu Jerez, Tonya Duron, Rod Chen and colleagues, with an educational beba from [employer]. Thrive Questionnaire Date Thrive assessed: 04/25/25 I am a: Patient What is your living situation today?: I have a steady place to live Within the past 12 months, did the food you bought not last and you didn't have the money to get more?: Never true Within the past 12 months, did you worry whether your food would run out before you got money to buy more?: Never true Do you have trouble paying for medicines?: No Do you have trouble getting transportation to medical appointments?: No Do you have trouble paying your heating and electricity bill?: No Do you have trouble taking care of your child, family member or friend?: No Do you have trouble with day-to-day activities such as bathing, preparing meals, shopping, managing finances, etc.?: No Are you currently unemployed and looking for a job?: No Are you interested in more education?: No Please select the resources that you would like help with: None Currently or been in a relationship where the following occur: No concerns reported THRIVE Score: 0 AUDIT C Alcohol Use Questionnaire (AUDIT-C) 1. How often do you have a drink containing alcohol?: Monthly or less 2. How many drinks containing alcohol do you have on a typical day when you are drinking?: 1 or 2 3. How often do you have six or more drinks on one occasion?: Never Total Score: 1 NELLI-7 AMB Questionnaire NELLI-7 Date NELLI - 7 assessed: 10/24/24 Feeling nervous, anxious, or on edge: 0 = Not at all Not being able to stop or control worryin = Not at all Worrying too much about different things: 0 = Not at all Trouble relaxin = Not at all Being so restless that it is hard to sit still: 0 = Not at all Becoming easily annoyed or irritable: 0 = Not at all Feeling afraid as if something awful might happen: 0 = Not at all Total NELLI-7 score (0-4 normal; 5-9 mild; 10-14 moderate; 15-21 severe): 0 Source: Developed by Drs. Olu Jerez, Tonya Duron, Rod Chen and colleagues, with an educational beba from [employer]. Review of Systems Const Denies chills, Denies fatigue, Denies fever(s), Denies headache(s) and Denies weakness ENT Denies dizziness and Denies headache(s) Card Denies chest pain, Denies lightheadedness, Denies dyspnea and Denies other (Palpitations) Resp Denies cough, Denies dyspnea, Denies wheezing and Denies other ( shortness of breath) Musc Denies numbness and Denies tingling Neuro Denies dizziness, Denies headache(s), Denies numbness, Denies tingling, Denies paresthesias and Denies weakness Psych Denies anxiety and Denies depression Endo Denies fatigue Aller/Immun Denies wheezing Physical exam (Primary Care) Vital Signs: Last Vital Signs Temp 98.4 F 04/25/25 16:53 Pulse 75 04/25/25 16:53 Resp 16 04/25/25 16:53 BP 122/62 04/25/25 16:53 Pulse Ox 100 04/25/25 16:53 Oxygen Delivery Method Room Air 04/25/25 16:53 BMI result Body Mass Index 25.3 Tobacco/Smoking Status: Tobacco use Status Tobacco use date assessed 10/24/24 04/25/25 16:47 Patient Tobacco Use Status Never used Tobacco 04/25/25 16:47 e-Cigarette/Vaping Use Never Used 04/25/25 16:47 PHQ-9: PHQ-9 Score PHQ-9: Total score 0 04/25/25 17:25 Thrive Assessment: Date of Thrive Assessment Date Thrive assessed 04/25/25 04/25/25 16:47 Currently or been in a relationship where the following occur: No concerns reported Const General: no acute distress and well developed Nutritional Appearance: well nourished Orientation/consciousness: patient oriented x3 HENMT Head: Yes normocephalic and Yes atraumatic Eyes General: appearance normal, both eyes and all related structures Pupils: Equal, round and reactive pupils present EOM: EOMs intact bilaterally Resp Effort & Inspection: normal respiratory effort Auscultation: clear to auscultation bilaterally Cardio Rate: regular rate Rhythm: regular rhythm Heart sounds: S1 normal heart sound present, S2 normal heart sound present, no gallops, no murmurs and no rubs Neuro General: patient oriented x3 and gait normal Cranial nerves: Yes Equal, round and reactive pupils present Psych Affect: normal affect Coding Level of Care Code Est Pt Level 4 (86229) Diagnoses High blood pressure I10 Elevated serum creatinine R79.89 Elevated fasting blood sugar R73.01 Elevated liver enzymes R74.8 Rash R21 Groin mass R19.09 Seasonal allergies J30.2 Assessment & Plan Assessment & Plan (1) High blood pressure: Code(s): I10 - Essential (primary) hypertension Category: Medical Plan: blood pressure is controlled. Goal is less than 140/90 continue losartan and amlodipine as prescribed (2) Elevated serum creatinine: Code(s): R79.89 - Other specified abnormal findings of blood chemistry Category: Medical Plan: monitoring creatinine slightly higher than prior measurement hydrate well will continue monitor (3) Elevated fasting blood sugar: Code(s): R73.01 - Impaired fasting glucose Category: Medical Plan: will recheck with next blood draw (4) Elevated liver enzymes: Code(s): R74.8 - Abnormal levels of other serum enzymes Category: Medical Plan: patient has hemangioma this likely cause will continue to monitor (5) Rash: Code(s): R21 - Rash and other nonspecific skin eruption Category: Medical Plan: rash bilateral axillae refer back to Dermatology will send script for betamethasone-clotrimazole cream while he is awaiting appointment (6) Groin mass: Code(s): R19.09 - Other intra-abdominal and pelvic swelling, mass and lump Category: Medical Plan: patient has a left inguinal hernia referred to general surgery advised patient if he is having worsening pain, change in bowel habits or lack of stool or flatus, he should go to the emergency department. (7) Seasonal allergies: Code(s): J30.2 - Other seasonal allergic rhinitis Category: Medical Plan: Will send script for cetirizine and Flonase Orders: Referrals General Surgery Referral K40.90 - Unilateral inguinal hernia, without obstruction or gangrene, not specified as recurrent, R19.09 - Other intra-abdominal and pelvic swelling, mass and lump Dermatology Referral R21 - Rash and other nonspecific skin eruption Medications: New fluticasone propionate 50 mcg/actuation (Flonase Allergy Relief) administer into each nostril 1 spray intranasal Q12H 30 days 16 grams 2RF cetirizine 10 mg PO DAILY 30 days PRN 30 tabs 3RF allergy symptoms
[2025-04-25 16:53] VITALS: BP 122/62; PULSE 75; RESP 16; TEMP 36.9; O2SAT 100; BMI 25.3
== END 2025-04-25 17:05 ==
LOC: HO.HMCFM 15:36
PROVIDERS: PCP Family Medicine; Visit Provider Family Medicine
DX: I10 Essential (primary) hypertension (principal); R79.89 Other specified abnormal findings of blood chemistry; R73.01 Impaired fasting glucose; R74.8 Abnormal levels of other serum enzymes; R21 Rash and other nonspecific skin eruption; R19.09 Other intra-abdominal and pelvic swelling, mass and lump; J30.2 Other seasonal allergic rhinitis

== ENCOUNTER 2025-06-03 08:40 | Outpatient (AMB) | payer OTHER, SELFPAY ==
--- OUTSIDE RECORDS SUMMARY | 2019-09-10 20:00 | XMS_ITS | Continuity of Care Document ---
Author Name [facility] Organization [facility] Care Team Providers Care Upper Trimmer Name Role Phone [facility] Unavailable Unavailable Immunizations Combined list of available immunizations from the Department of Defense and Veterans Affairs facilities. 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 Administe red by: RADHA BROWN (TII=[id number]). Partner 46 Lot#: [id number] Mfr: SEQIRUS; Dosage: 0.5 [facility]
--- NOTE | 2025-06-03 08:49 | MHC.OFFVIS ---
Vital Signs 06/03/25 08:54 Height 6 ft 1 in Weight 186 lb BMI 24.5 BP 120/76 Blood Pressure Location Lt brachial Position Sitting Intake Visit Reasons: Unilateral inguinal hernia Intake Note: Pt states, I have a hernia in my groin. c/o dull pain, bump present. Pt thinks it happened at the gym. Cleaning Crew Member Required: No Allergies naproxen Allergy (Mild, Verified 06/03/25 08:51) Rash Medication List - Last Reconciled 06/03/25 by Brandno Murray, RN adapalene 0.1% (Differin) 1 appl topical BEDTIME PRN amlodipine 7.5 mg (1.5 x 5 mg) PO QPM 90 days cetirizine 10 mg PO DAILY PRN 30 days clotrimazole-betamethasone 1-0.05 % 1 appl topical BID 2 weeks fluticasone propionate 50 mcg/actuation (Flonase Allergy Relief) 1 spray intranasal Q12H 30 days losartan 50 mg PO QPM 90 days montelukast 10 mg PO QPM PRN HPI Comments Details: 44-year-old male patient currently serving in the [employer], presenting with a suspected left inguinal hernia. Symptoms began approximately 3 months ago while exercising. He noted a lump in the left side which over time has increased in size. He was doing leg lifts yesterday and felt a dull pain in the left groin but denies any sharp pain. He also denies changes in his bowel habits, nausea or vomiting. He has no prior history of hernias or hernia surgery. Last year he underwent spinal fusion at C5-C6 and tolerated this procedure well. [facility] Medical History Hemangioma Renal cyst Cervical radiculitis Allergies High blood pressure Surgical History History of cervical discectomy Hx of wisdom tooth extraction Family History Father High blood pressure High cholesterol Mother High blood pressure High cholesterol Maternal Grandmother High blood pressure High cholesterol Diabetes Paternal Grandfather Diabetes High blood pressure High cholesterol Paternal Grandmother Diabetes High blood pressure High cholesterol Other No family history of mental disorder Social History Housing: Apartment Are you a primary rn intensive care unit to a significant other at home: No Do you presently have visiting nurse or other home services: No Patient Tobacco Use Status: Never used Tobacco e-Cigarette/Vaping Use: Never Used Second Hand Smoke Exposure: No service: Yes 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: No Cognitive needs: No Hearing needs: No Vision needs: No Review of Systems Const All systems reviewed & are unremarkable except as noted in HPI and below Physical Exam Vital Signs: Last Vital Signs BP 120/76 06/03/25 08:54 BMI result Body Mass Index 24.5 Const General: cooperative and no acute distress Nutritional Appearance: well nourished Orientation/consciousness: patient oriented x3 Limitations: no limitations HEENT Head: Yes normocephalic and Yes atraumatic Ears: hearing grossly normal bilaterally Resp Effort & Inspection: normal respiratory effort, no audible wheezes, no cough and no respiratory distress Cardio Jugular venous distension: no JVD GI Other: Easily identified left inguinal hernia noted in the standing position which increases in size with Valsalva maneuvers but easily reduces with light pressure. No tenderness elicited with pressure. No right inguinal hernia noted. Umbilical hernia noted Inspection: Yes normal to inspection Skin Other: Warm, dry, no rash Neuro General: patient oriented x3 Extrem General: Yes no clubbing, cyanosis or edema Assessment & Plan Assessment & Plan (1) Left inguinal hernia: Code(s): K40.90 - Unilateral inguinal hernia, without obstruction or gangrene, not specified as recurrent Category: Medical Plan 44-year-old male patient presenting with a reducible left inguinal hernia which developed approximately 3 months ago while exercising. On examination he is noted to have a reducible left inguinal hernia which increases with Valsalva maneuvers. There were no other hernias appreciated on examination. I reviewed the procedure, risks, and alternatives and he consents to a repair of the left inguinal hernia with mesh. He will be scheduled as a short-stay surgery. Coding Level of Care Code New Pt Level 4 (18412) Diagnoses Left inguinal hernia K40.90
--- OUTSIDE RECORDS SUMMARY | 2025-06-03 08:52 | XMS_ITS | Data Portability ---
Author Organization [facility] [employer], Patient Home Address [address] [place] [address] Assessment Encounter Date Assessment Date Assessment LastModified by Organization Details LastModified Time 01/27/2017 01/27/2017 New patient presented for admission to the practice. Studies ordered as below. Discussed plan with patient, who expressed understanding . Follow up as noted below. The patient advised to continue a healthy diet and exercise regularly. Labs will be sent to evaluate. Advised patient to follow up in 1 year or sooner if needed. Not available 01/27/2017 10:47:05 02/04/2017 02/04/2017 Patient presented for follow up of: . Studies ordered as below. Discussed plan with patient, who expressed understanding . Follow up as noted below. Not available 02/04/2017 12:18:29 Plan of Treatment Reminders Order Date Submit Date Provider Last Modified By Organization Details Last Modified Time Details Appointments None recorded. Lab cholestero l, total, serum 2016 017 KACIE Not available 8 05:02:24 CBC 2016 017 KACIE Not available 7 10:09:22 lipid panel, serum 2016 017 KACIE Not available 7 10:09:22 vitamin D panel, serum or plasma 2016 017 KACIE Not available 8 05:02:24 vitamin D, 25-hydroxy , total, serum 2016 017 KACIE Not available 7 10:09:22 testostero ne free/testo sterone total, ratio, serum 2016 017 KACIE Not available 7 10:09:22 urinalysis , dipstick 2016 017 KACIE Not available 8 05:02:25 Referral None recorded. Procedures None recorded. Surgeries None recorded. Imaging electrocar diogram 2016 017 KACIE Not available 7 05:01:01 Medication Orders Vitamin D2 1,250 mcg (50,000 unit) capsule 2016 017 [facility], [address] [place], [address], 7 12:20:11 fluticason e propionate 50 mcg/actuat ion nasal spray,susp ension [address] [facility], [address] [place], [address], 7 10:09:33 Ala-Hist PE 2 mg-10 mg tablet [address] [place] [address] [facility] [address], [address] [place], [address], 7 10:09:33 losartan 50 mg tablet [address] [place] [address] [facility] [address], [address], [place], [address], 7 10:09:33 Patient TargetsNo targets recorded. Patient InstructionsNo instructions recorded. Reason for Referral None Reported. Results Created Date Observation Date Name Description Value Unit Range Abnormal Flag Note LastModifiedBy Organization Detail LastModifiedTime 02/01/20 17 01/27/2017 imagi ng/di agnos tic resul t No observ ation record ed. JOSHUA T[facility] [address], [place], [address], 01/31/2017 15:19:14 Result Notes None recorded. Problems Name Problem SNOMED Code Status Onset Date Resolution Date Notes Provider Name and Address Organization Details Recorded Time Gynecologic examination Active 2016 Abigail Wallace NP, S [address], [place], [address], [facility] 7 10:49:21 Adult health examination Active 2016 Abigail Wallace NP, [address], [place], [address], [facility] [employer] [facility] 7 10:49:39 Headache 27123485 Active 2016 Abigail Wallace NP, [address], [place], [address], [facility] [employer] [facility] 7 10:52:41 Malignant hypertension 70231500 Active 2016 Abigail Wallace NP, [address], [place], [address], [facility] [employer] [facility] 7 10:52:42 Sinus headache 4923419 Active 2016 Abigail Wallace NP, [place], [address], [facility] 7 10:52:44 Hyperlipidemia screening Active 2016 Abigail Wallace NP, [place], [address], [facility] 7 10:52:52 Active or passive immunization Active 2016 Abigail Wallace NP, [place], [address], [facility] [employer] [facility] 7 10:52:53 Fatigue 94229086 Active 2016 HAL AVALOS [facility], [facility] 7 11:52:09 Vitamin D deficiency 20648113 Active 2016 Abigail Wallace NP, S [address] [place], [address], [employer] [employer] 7 12:20:47 Chronic kidney disease stage 2 581325260 Active 2016 Abigail Wallace NP, S [address], [place], [address], [facility] [employer] 7 12:20:48 Notes:hypertension Problem Notes None recorded. Medical Equipment None Reported. Allergies No known drug allergies Medications Name Sig Start Date Stop Date Status Note LastModified by Organization Details LastModified Time losartan 50 mg tablet Take 1 tablet every day by oral route for 30 days. active Not Available Not Available No t Available hydrocodone 5 mg-acetamino phen 325 mg tablet active Not Available Not Available Not Available tramadol 50 mg tablet active Not Available Not Available No t Available Vitamin D2 1,250 mcg (50,000 unit) capsule TAKE ONE CAPSULE BY MOUTH ONCE A WEEK active Not Available Not Available No t Available fluticasone propionate 50 mcg/actuatio n nasal spray,suspen carlota Perry 1 spray every day by intranasal route as needed for 30 days. active Not Available Not Available No t Available Ala-Hist PE 2 mg-10 mg tablet Take 1 tablet twice a day by oral route as needed for 30 days. 2016 active Not Available Not Available Not Avai lable Vitals Date Recorded Body weight Oxygen saturation Oxygen saturation in Arterial blood by Pulse oximetry Heart rate Body temperature Respiratory rate Body height Body mass index (BMI) Systolic And Diastolic Provider Name and Address Organization Details Last Updated DateTime 7 13434.0 7 g 98 % 98 % 71 /min 97.4 [degF] 18 /min 185.42 cm 23 kg/m2 154/100 mm[Hg] CAMERON BOWER [facility] 7 10:14:14 Date Recorded Body height Heart rate Respiratory rate Body temperature Body weight Body mass index (BMI) Oxygen saturation Oxygen saturation in Arterial blood by Pulse oximetry Systolic And Diastolic Provider Name and Address Organization Details Last Updated DateTime 7 185.42 cm 98 /min 20 /min 96.5 [degF] 45273.9 2 g 22.9 kg/m2 99 % 99 % 158/87 mm[Hg] [facility] [place] [facility] 7 11:52:38 Social History None recorded. Functional Status None recorded. Mental Status None recorded. Family History Relationship Description Onset Age of this Age Resolved Age Notes LastModified by Organization Details LastModified Time Mother Hypertensive disorder 35 [email or web address] Not available 2016 10:17:29 Father Hypertensive disorder ctompson Not available 2016 10:17:30 Maternal Grandfather Hypertensive disorder ctompson Not available 2016 10:17:30 Maternal Grandmother Diabetes mellitus [email or web address] Not available 2016 10:17:54 Medical History Condition Response Hypertension Y Past Encounters Encounter ID Performer Location Encounter Start Date Encounter Closed Date Diagnosis/Indication Diagnosis SNOMED-CT Code Diagnosis ICD10 Code Diagnosis Note [id number] Abigail Wallace NP, S Main [place] [address] [place] [address] 01/27/2017 09:48:21 01/27/2017 11:31:30 Adult health examination 572925526 Z00.01 Active or passive immunization 269515791 Z23 Hyperlipid emia screening 388659754 Z13.220 Malignant hypertension 19032950 I10 Headache 58938982 R51 Sinus headache 7173702 R 51 Fatigue 60677378 R53.83 uro3.5,Ph7 .0,sg1.015 , (all others neg) [id number] Abigail Wallace NP, S Main [address] [place] [address] 02/04/2017 11:32:54 02/04/2017 12:29:06 Chronic kidney disease stage 2 630585549 N18.2 Vitamin D deficiency 347 87788 E55.9 Health Concerns Section Related Observation LastModified by Organization Detai ls LastModified Time None Recorded Concern Status LastModified by Organization Details LastModified Time None Recorded Advance Directives Directive None Recorded Payers Insurance Date Sequence Insurance Name Policy Number Policy Tejeda Covered Member ID Tejeda Member ID Guarantor Name 02/04/2017 1 NABEEL (VASILIY) [id number] Ganga Cali [id number] Gangabear Cali Notes Date Note Type Note Provider Name and Address Organization Details Recorded Time 01/27/2017 text/html Pt is here to establish a pcp. Patient complains of temporal headache in the mornings, states ran out of his losartan 50 mg and blood pressure has been elevated. Patient also complains of sinus drainage and fatigue. Will evaluate and treat. Abigail Wallace NP, S [address], [place], [address], [facility] [employer] [facility] 01/29/2017 15:23:26 02/04/2017 text/html Pt is here to go over his test result. Abigail Wallace NP, S [address], [place], [address], [facility] [employer] [facility] 02/04/2017 12:21:07
--- OUTSIDE RECORDS SUMMARY | 2025-06-03 08:52 | XMS_ITS | Clinical Summary ---
Author Organization [address] Address [address] [place] [address] Care Team Providers Care Bar Finish Operator Name Role Phone Torey Cabrera MD Primary Care Provider [phone] Allergies Active Allergy Reactions Criticality Noted Date Comments Naproxen Hives High 11/23/2024 Medications amLODIPine (NORVASC) 5 mg tablet 12/21/2023 Active losartan (COZAAR) 50 mg tablet 12/24/2023 Active montelukast (SINGULAIR) 10 mg tablet Take 1 tablet (10 mg total) by mouth nightly. Active Immunizations Immunization Administration Dates Next Due Influenza, seasonal trivalen t, (65Yr+) adjuvanted, preservative free 08/29/2024 Family History Relation Name Status Comments Father Alive Mother Social History Tobacco Use Types Packs/Day Years Used Date Smoking Tobacco: Never Tobacco Cessation:Counseling Given: Not Answered Alcohol Use Standard Drinks/Week Comments Never 0 (1 standard drink = 0.6 oz pur e alcohol) Sex and Gender Information Value Date Recorded Sex Assigned at Not on file Legal Sex Male 8:17 AM EDT Gender Identity Not on file Sexual Orientation Not on file Last Filed Vital Signs Vital Sign Reading Time Taken Comments Blood Pressure 127/81 11/23/2024 8:18 AM EST Pulse 70 11/23/2024 8:18 AM EST Temperature 36.2 C (97.2 F) 11/23/2024 8:18 AM EST Respiratory Rate 18 11/23/2024 8:18 AM EST Oxygen Saturation 99% 11/23/2024 8:18 AM EST Inhaled Oxygen Concentration - - Weight 83.9 kg (185 lb) 11/23/2024 8:18 AM EST Height 185.4 cm (6' 1 ) 11/23/2024 8:18 AM EST Body Mass Index 24.41 11/23/2024 8:18 AM EST Plan of Treatment Health Maintenance Due Date Last Done Comments HIV screening 1994 Hepatitis C screening 1999 Tetanus adult (Td q 10,TDAP once) 06/06/2018 06/06/2008 Lipid disorder screening 2021 Covid-19 vaccine series (2023- season) 2024 08/29/2024, 09/09/2023, 08/12/2022, Additional history exists Influenza vaccine 07/29/2025 08/29/2024, , 08/30/2022, Additional history exists RSV Immunization (1 - 1-dose 75+ series) 2056 Meningococcal Vaccine Aged Out 05/26/2004, 999 No longer eligible based on patient's age to complete this topic Pneumococcal Vaccine (2 - 49 years) Aged Out No longer eligible based on patient's age to complete this topic Insurance Care Teams Bar Finish Operator Relationship Specialty Start Date End Date Torey Cabrera MD [address] [place] [phone] PCP - General Family Medicine 11/23/24
--- OUTSIDE RECORDS SUMMARY | 2025-06-03 08:53 | XMS_ITS ---
[facility] Name [facility] Unknown History of Medication Use Medication Directions Dispensed Refills Start Date End Date Stat us PaxlovidTake 1 (oral ) as directed on dose [id number], Dose Packas directed on dose packoralNo set duration recordedNo set duration amount [id number] mg (150 mgx 2)-100 mg 01/08/2024 active NaprosynTake 1 table t (Oral) 2 times per day for 7 [id number] times per [id number] 500mg 06/15/2022 suspended SingulairTakeNo date recordedNo form recordedNo frequency recordedNo route recordedNo set duration recordedNo set duration amount recordedactiveNo dosage strength recordedNo dosage strength units of measure recorded active montelukast (SINGULAIR) 10 mg tablet Take 1 tablet (10 mg total) by mouth nightly. active Allergies Allergen Reaction Severity Comment Documented Date Source Statu s NAPROXEN HIVES [facility] Problems Problem Status Onset Date Problem Type Date of Resolution Source Acute nasopharyngitis active EncounterDiagnosisAct CT_ YALEUC Acute cough active EncounterDiagnosisAct [facility]_YALEUC Allergic rhinitis, unspecified active ProblemAct [facility]_PHYSONE Hypertension active ProblemAct [facility]_PHY GLEN COVID-19 active 2024-01-08 ProblemAct CT_PHYSO NE Encounters Encounter Type Encounter Reason Primary Diagnosis Location Date Ambulatory Acute nasopharyngiti s (common cold) Acute nasopharyngitis (common cold) [facility] 11/23/2024 Care Team Organization Name Specialty Phone Email Start Date End [facility] Torey Cabrera Primary Care [facility] Not Found Primary Care 01/08/2024 [facility] Not Found Primary Care 01/08/2024
[2025-06-03 08:54] VITALS: BP 120/76; BMI 24.5
== END 2025-06-03 09:19 | disposition home or self-care (01) ==
LOC: HO.HGS 08:41
PROVIDERS: PCP Family Medicine; Visit Provider Surgery
DX: K40.90 Unilateral inguinal hernia, without obstruction or gangrene, not specified as recurrent (principal)
CPT/HCPCS: 99204

== ENCOUNTER → 2025-06-03 08:40 | Outpatient (BNVA) | payer OTHER, SELFPAY | PROVIDERS: PCP Family Medicine; Visit Provider Surgery | DX: K40.90 Unilateral inguinal hernia, without obstruction or gangrene, not specified as recurrent (principal); Z79.899 Other long term (current) drug therapy | CPT/HCPCS: 99202 ==

== ENCOUNTER 2025-06-24 07:57 | Day surgery (SDC) | payer OTHER, SELFPAY ==
[2025-06-20 09:01] VITALS: BMI 25.3
--- NOTE | 2025-06-21 12:30 | P.CONAN_ITS ---
Documented by User: Peg Gómez NP 06/21/25 12:32 HPI - Anesthesia Eval Consult details Narrative: 44 yr old male for left inguinal hernia repair reducible with mesh s/p anterior cervical discectomy with fusion 12/2023 with [place] [facility] Active Problems Active Problems: All Active Problems Left inguinal hernia (Acute) Groin mass (Acute) Rash (Acute) Mild renal insufficiency (Acute) Adult general medical exam (Acute) S/P cervical spinal fusion (Acute) Cervical radiculitis (Acute) Screening for prostate cancer (Acute) Left shoulder pain (Acute) Rash of body (Acute) Renal cyst (Acute) Hypertension (Acute) Low HDL (under 40) (Acute) Renal failure (Acute) Acute renal injury (Acute) Elevated liver enzymes (Acute) Elevated fasting blood sugar (Acute) Elevated serum creatinine (Acute) Allergic drug rash (Acute) Strain of right shoulder (Acute) Seasonal allergies (Acute) Normal physical exam, routine (Acute) High blood pressure (Acute) Past Medical History Medical History Hemangioma Renal cyst Cervical radiculitis Allergies High blood pressure Family History Family History Father High blood pressure High cholesterol Mother High blood pressure High cholesterol Maternal Grandmother High blood pressure High cholesterol Diabetes Paternal Grandfather Diabetes High blood pressure High cholesterol Paternal Grandmother Diabetes High blood pressure High cholesterol Other No family history of mental disorder Family history of problems with anesthesia: No Surgical History Surgical History History of cervical discectomy Hx of wisdom tooth extraction History of Problems with Anesthesia: No Social History Social History Housing: Apartment Are you a primary doggy daycare activities director to a significant other at home: No Do you presently have visiting nurse or other home services: No Patient Tobacco Use Status: Never used Tobacco e-Cigarette/Vaping Use: Never Used Second Hand Smoke Exposure: No Have you been hit, kicked, punched, or otherwise hurt by someone within the past year? 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: No Cognitive needs: No Hearing needs: No Vision needs: No Meds Allergies Allergy/AdvReac Type Severity Reaction Status Date / Time naproxen Allergy Mild Rash Verified 06/03/25 08:51 Home Medications ?Medication ?Instructions ?Recorded ?Confirmed ?Last Taken ?Type adapalene 0.1 % topical cream 1 appl topical BEDTIME P RN 10/19/23 06/24/25 02/29/24 History (Differin) axillary rash montelukast 10 mg tablet 10 mg PO QPM PRN seasonal al lergies 06/03/25 06/24/25 Unknown History Exam Height,Weight and Vital Signs: Height 6 ft 1 in Weight 87.09 kg Pertinent Lab Results Pertinent Lab Results: Laboratory Tests 12/22/22 04/25/25 08:50 08:58 RBC 5.04 Hgb 14.7 Hct 42.8 Plt Count 215 Sodium 141 Potassium 4.1 BUN 13 Creatinine 1.43 H Assessment and Plan Final Anesthetic Review Family History of Problems with Anesthesia: No History of Problems with Anesthesia: No Documented by User: Deepak Lopez MD 06/24/25 09:02 [facility] Past Medical History Medical History Hemangioma Renal cyst Cervical radiculitis Allergies High blood pressure Family History Family History Father High blood pressure High cholesterol Mother High blood pressure High cholesterol Maternal Grandmother High blood pressure High cholesterol Diabetes Paternal Grandfather Diabetes High blood pressure High cholesterol Paternal Grandmother Diabetes High blood pressure High cholesterol Other No family history of mental disorder Surgical History Surgical History History of cervical discectomy Hx of wisdom tooth extraction Social History Social History Housing: Apartment Are you a primary doggy daycare activities director to a significant other at home: No Do you presently have visiting nurse or other home services: No Patient Tobacco Use Status: Never used Tobacco e-Cigarette/Vaping Use: Never Used Second Hand Smoke Exposure: No Have you been hit, kicked, punched, or otherwise hurt by someone within the past year? 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: No Cognitive needs: No Hearing needs: No Vision needs: No Meds Allergies Allergy/AdvReac Type Severity Reaction Status Date / Time naproxen Allergy Mild Rash Verified 06/03/25 08:51 Home Medications ?Medication ?Instructions ?Recorded ?Confirmed ?Last Taken ?Type adapalene 0.1 % topical cream 1 appl topical BEDTIME P RN 10/19/23 06/24/25 02/29/24 History (Bowen) axillary rash montelukast 10 mg tablet 10 mg PO QPM PRN seasonal al lergies 06/03/25 06/24/25 Unknown History Exam Airway Mallampati Class: II TM Dist: >3cm Neck ROM: Full Assessment and Plan Assessment Anesthesia Assessment: Anesthesia Plan Discussed and Chart Reviewed Final Anesthetic Review NPO: Yes ASA Class: II Final Preanesthetic Review: No Changes in Pt Med Stat, Meds/Allgs Chart Reviewed, Consent Obtained/Reviewed and Anes Risks/Benef Reviewed Patient Risk: Low Procedure Risk: Low Anesthetic Plan Anesthetic Plan: GA Disposition: Standard PACU
[2025-06-24 08:11] VITALS: BP 131/91; PULSE 79; RESP 18; TEMP 36.9; O2SAT 97; BMI 25.7
[2025-06-24] MEDS: Lactated Ringers 1,000 ML 100 ML IVCONT (08:21)
--- NOTE | 2025-06-24 08:47 | MHC.SHP ---
Pre-Procedural Eval Section A - 24 Hr Update-Section A only Date of Service: 06/24/25 The patient is an INPATIENT: No Changes since office visit: Yes Patient answered all questions; No Cold of Flu in the past 2 weeks, No New Medical Problems and No Changes in Medication The patient has been examined within 24 hours of the surgical procedure. The History & Physical has been completed within 30 days and I have reviewed it.: Yes Section B - Complete if H&P > 30 days Chief Complaint: Unilateral inguinal hernia, without obstruction Allergies: Allergies Allergy/AdvReac Type Severity Reaction Status Date / Time naproxen Allergy Mild Rash Verified 06/03/25 08:51 Plan Diagnosis/Plan: Unchanged I have reviewed the history and physical and performed a pertinent physical examination on my patient. No changes have occurred unless specified. Time Spent With Patient Time: Total time managing care of this patient today ____ minutes.
--- NOTE | 2025-06-24 10:04 | W.PM.OPN ---
Operative Note Operative Note Date of Service: 06/24/25 Narrative: Preoperative diagnosis: Left inguinal hernia, reducible Postoperative diagnosis: Same Procedure: Repair of reducible left inguinal hernia with mesh Surgeon: Cortez Wooten MD Clinical Support Tech: Pieter Hare PA-C Anesthesia: General LMA Indications for procedure: 44-year-old male patient presenting with a palpable lump in the left groin which increases in size with lifting and straining but reduces in the supine position. On examination the patient has a reducible left inguinal hernia which increases with Valsalva maneuvers but easily reduces with light pressure. Operative findings: Direct left inguinal hernia Specimen: None Estimated blood loss: Less than 2 mL Complications: None Procedure details: Patient was brought to the OR placed in a supine position. After administering general anesthesia the patient's abdomen was prepped with ChloraPrep and draped in a sterile fashion. A surgical time-out was called the consent confirmed. Patient received preoperative antibiotics and Venodyne boots were in place. Local anesthesia consisting of 0.5% Sensorcaine was infiltrated over the left inguinal ligament. Incision was then made with a scalpel, carried down through subcutaneous tissue, past Wilfred's fascia and up to the external oblique aponeurosis. Additional local was infiltrated below the aponeurosis. The aponeurosis was then incised with a scalpel and widened with the Metzenbaum scissors. The spermatic cord was then dissected free from the surrounding inguinal canal and retracted using a Hayde drain. A direct hernia was easily identified at this time. Fibers of the cremaster muscle were and no indirect sac of the identified. Attention was then directed to the floor of the inguinal canal. Fibers of the internal oblique and transversalis aponeurosis were then incised with electrocautery and the preperitoneal space entered. This was then widened using an open Ray-Chapo sponge. A large PHS mesh was then obtained. The circular underlay was deployed within the preperitoneal space and the overlay secured to the pubic tubercle, conjoined tendon, and shelving edge of the inguinal ligament using a 0 Polysorb suture. A slit was made in the mesh in the mesh wrapped around the spermatic cord at the internal ring. This was then secured to the shelving edge of the inguinal canal. Wounds were irrigated with saline solution and suctioned dry. External oblique aponeurosis was then reapproximated using a running 2-0 Polysorb suture by the payroll administrative assistant. 7 mL of Zenrelef was then instilled below the aponeurosis. The payroll administrative assistant then closed the Wilfred's fascia and dermis using interrupted 3-0 Polysorb sutures. Skin was then closed by the payroll administrative assistant using a running subcuticular 4-0 Polysorb suture. Steri-Strips, 2 x 2 gauze and Tegaderm were then applied. The patient tolerated the procedure well. Sponge, instrument, and needle counts reported as correct. The patient was transferred to PACU in stable condition.
[2025-06-24 10:19] VITALS: BP 137/78; PULSE 65; RESP 14; TEMP 36.4; O2SAT 100
[2025-06-24 10:24] VITALS: BP 132/77; PULSE 71; RESP 14; O2SAT 97
[2025-06-24 10:29] VITALS: BP 132/76; PULSE 72; RESP 18; O2SAT 98
[2025-06-24 10:34] VITALS: BP 140/78; PULSE 70; RESP 16; O2SAT 98
[2025-06-24 10:49] VITALS: BP 137/87; PULSE 72; RESP 14; TEMP 36.4; O2SAT 99
== END 2025-06-24 11:57 | disposition home or self-care (01) ==
PROVIDERS: PCP Family Medicine; Visit Provider Surgery
PROC: (CPT 49505; principal; 2025-06-24 09:20)
DX: K40.90 Unilateral inguinal hernia, without obstruction or gangrene, not specified as recurrent (principal); I10 Essential (primary) hypertension; D18.03 Hemangioma of intra-abdominal structures; J30.2 Other seasonal allergic rhinitis; M54.12 Radiculopathy, cervical region; Z79.51 Long term (current) use of inhaled steroids; Z79.899 Other long term (current) drug therapy; Z88.6 Allergy status to analgesic agent; Z98.1 Arthrodesis status; Z98.890 Other specified postprocedural states
CPT/HCPCS: 49505; C1781; C9088; J0131; J0690; J1100; J2003; J2250; J2405; J2704; J3010

== ENCOUNTER → 2025-06-24 07:57 | Outpatient (BNV) | payer OTHER, SELFPAY | PROVIDERS: PCP Family Medicine; Visit Provider Surgery | DX: K40.90 Unilateral inguinal hernia, without obstruction or gangrene, not specified as recurrent (principal) | CPT/HCPCS: 49505 ==

== ENCOUNTER 2025-07-05 09:51 | Outpatient (AMB) | payer OTHER, SELFPAY ==
--- OUTSIDE RECORDS SUMMARY | 2025-07-05 09:54 | XMS_ITS | Continuity of Care Document ---
Author Name [facility] Organization [facility] Care Team Providers Care Leak Detection Engineer Name Role Phone [facility] Unavailable Unavailable Problems Combined list of problems from Department of Defense and Veterans Affairs facilities. It does not include entries that were removed or entered in error. 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 [facility] [place] Retinal dot hemorrhage Active Condition [facility] [place] Encounter for examination of eyes and vision with abnormal findings Active Condition [facility] [place] Essential (primary) hypertension Active Condition DoD Allergic rhinitis, unspecified Active Condition DoD HYPERTENSION (SYSTEMIC) Active Condition DoD CLOSED FRACTURE LEFT 5TH TOE PROXIMAL PHALANX Active Condition DoD Patient Counseling: Active Condition DoD 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 rt sick call if not improved in 7-10 days sooner if fever returns or sxs worsen. DoD diarrhea Active Condition continue p o hydration, rtc if not imrpoved in 7 days, sooner for new or worsening sxs. DoD FURUNCLE Inactive Condition almost completely healed. due to location near rectum on right gluteal, will rx abx oint for topical tx and prevention DoD ELBOW SPRAIN LEFT Inactive Condition DoD visit for: services physical Active Condition DoD FURUNCLE ON THE LEFT BUTTOCK Inactive Condition DoD Medications Combined list of outpatient medications from Department of Defense and Veterans Affairs facilities.Medications provided include 1) outpatient medications from the last 15 months, and 2) patient-reported medications. Medication Details Route Status Patient Instructions Prescription Expires Prescription Number Last Dispense Date Ordering Provider Order Date Order Qty Source AMLODIPINE BESYLATE (amlodipine besylate), 5 MG, TABLET, ORAL, LUPIN PHARMACEU, 1000 ea. BOTTLE Cancele d [id number] : 2023 0 Pharmac y Data Transac tion Service Facilit y MELOXICAM (MELOXICAM) , 15 MG, TABLET, ORAL, [employer] 100 ea. BOTTLE Active [id number] 2023 30 Pharmac y Data Transac tion Service Facilit y MELOXICAM (MELOXICAM) , 15 MG, TABLET, ORAL, [employer] 100 ea. BOTTLE Active [id number] 2023 30 Pharmac y Data Transac tion Service Facilit y Allergies, Adverse Reactions, Alerts Combined list of allergies from Department of Defense and Veterans Affairs facilities. It does not include entries that were removed or entered in error. Substance Category Reaction Severity Reaction type Status Date Reported Comments Source No Known Allergies Drug allergy (disorder) active 01/04/2008 [facility] Immunizations Combined list of available immunizations from the Department of Defense and Veterans Affairs facilities. 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 complet ed SARS-CoV- 2 (COVID-19 ) mRNA-Biva lent 08/29/24 Recorded 8344R-4 39 AMDS Influenza, trivlanent, adjuvanted, pf 2023 RASHAUNAMALESSIA CHOLS Shoul varghese, left (delt oid) [id number] 168 GlaxoSmithKli ne complet ed Influenza , trivlanen t, adjuvante d, pf 08/29/24 Recorded 8344R-4 39 AMDS influenza, injectable, quadrivalent- pf 2022 RASHAUNAMCNI CHOLS 150 complet ed Result Comment: Route: Unknown Manufactu rer: OTH (SEQ) 8344R-4 39 AMDS COVID-19 vaccine(Chauncey vax 12y+) 2022 RASHAUNAMALESSIA CHOLS 312 complet ed Result Comment: Route: Unknown Manufactu rer: OTH (MOD) 8344R-4 39 AMDS influenza, injectable, quadrivalent- pf 2021 MALIHA CHOLS [id number] 150 complet ed Result Comment: Route: Unknown Manufactu rer: [facility] ([facility]) 8344R-4 39 AMDS SARS-CoV-2 (COVID-19) mRNA-Bivalent 2021 MALIHA CHOLS [id number] complet ed Result Comment: Route: Unknown Manufactu rer: [facility] (MOD) 8344R-4 39 AMDS influenza, injectable, quadrivalent- pf 2020 [id number] 150 GlaxoSmithKli ne complet ed influenza , injectabl e, quadrival ent-pf 08/17/21 Given Ambulat ory Pharmac y Influenza, injectable, quadrivalent, preservative free 1 2020 [id number] 150 [facility] ([facility]) complet ed Influenza , injectabl e, quadrival ent, preservat keith free DoD COVID Vaccine Moderna 2020 [id number] 207 complet ed COVID Vaccine Moderna 02/11/21 Given Ambulat ory Pharmac y SARS-COV-2 (COVID-19) vaccine, mRNA, spike protein, LNP, preservative free, 100 mcg or 50 mcg dose 2 2020 [id number] 207 Moderna [employer] (MOD) complet ed SARS-COV- 2 (COVID-19 ) vaccine, mRNA, spike protein, LNP, preservat keith free, 100 mcg or 50 mcg dose DoD COVID Vaccine Moderna 2020 [id number] 207 complet ed COVID Vaccine Moderna 01/07/21 Given Ambulat ory Pharmac y SARS-COV-2 (COVID-19) vaccine, mRNA, spike protein, LNP, preservative free, 100 mcg or 50 mcg dose 1 2020 [id number] 207 Moderna US, Inc. (MOD) complet ed SARS-COV- 2 (COVID-19 ) vaccine, mRNA, spike protein, LNP, preservat keith free, 100 mcg or 50 mcg dose DoD influenza, injectable, quadrivalent 2019 [id number] 158 Seqirus complet ed influenza , injectabl e, quadrival ent 09/11/20 Given Ambulat ory Pharmac y influenza, injectable, quadrivalent, contains preservative 1 2019 [id number] 158 Seqirus (SEQ) complet ed influenza , injectabl e, quadrival ent, contains preservat keith DoD influenza, injectable, quadrivalent- pf 2018 150 complet ed influenza , injectabl e, quadrival ent-pf 09/11/19 Given Ambulat ory Pharmac y INFLUENZA, INJECTABLE, QUADRIVALENT 2018 158 complet ed HISTORICA L INFORMATI ON - [facility] OTHER PROVIDER, [facility] Administe red by: RADHA BROWN (HFT=[phone]). Partner 46 Lot#: [id number] Mfr: SEQIRUS; Dosage: 0.5 [facility] Influenza, injectable, quadrivalent, preservative free 0 2018 150 (MVX) complet ed Influenza , injectabl e, quadrival ent, preservat keith free DoD influenza, injectable, quadrivalent- pf 2017 [id number] 150 GlaxoSmithKli ne complet ed influenza , injectabl e, quadrival ent-pf 09/13/18 Given Ambulat ory Pharmac y Influenza, injectable, quadrivalent, preservative free 21 2017 [id number] 150 SmithKline (SKB) complet ed Influenza , injectabl e, quadrival ent, preservat keith free DoD tetanus-dipht h toxoids (Td) adult/adol 2017 [id number] 09 sanofi pasteur complet ed tetanus-d iphth toxoids (Td) adult/ado l 07/25/18 Given Ambulat ory Pharmac y tetanus and diphtheria toxoids, adsorbed, preservative free, for adult use (2 Lf of tetanus toxoid and 2 Lf of diphtheria toxoid) 3 2017 [id number] 09 Sanofi Pasteur (PMC) complet ed tetanus and diphtheri a toxoids, adsorbed, preservat keith free, for adult use (2 Lf of tetanus toxoid and 2 Lf of diphtheri a toxoid) DoD Influenza, inj, MDCK, quadrivalent- pf 2016 [id number] 171 Seqirus complet ed Influenza , inj, MDCK, quadrival ent-pf 09/28/17 Given Ambulat ory Pharmac y Influenza, injectable, Madin Heppner Canine Kidney, preservative free, quadrivalent 20 2016 [id number] 171 Seqirus (SEQ) comple t ed Influenza , injectabl e, Madin Michelle Canine Kidney, preservat keith free, quadrival ent DoD influenza, injectable, quadrivalent- pf 2015 [id number] 150 GlaxoSmithKli ne complet ed influenza , injectabl e, quadrival ent-pf 09/20/16 Given Ambulat ory Pharmac y Influenza, injectable, quadrivalent, preservative free 19 2015 [id number] 150 SmithKline (SKB) complet ed Influenza , injectabl e, quadrival ent, preservat keith free DoD influenza, injectable, quadrivalent- pf 2014 [id number] 150 GlaxoSmithKli ne complet ed influenza , injectabl e, quadrival ent-pf 08/21/15 Given Ambulat ory Pharmac y Influenza, injectable, quadrivalent, preservative free 0 2014 [id number] 150 SmithKline (SKB) complet ed Influenza , injectabl e, quadrival ent, preservat keith free DoD Influenza, injectable, MDCK-pf 2013 [id number] 153 Novartis Pharmaceutica ls complet ed Influenza , injectabl e, MDCK-pf 09/14/14 Given Ambulat ory Pharmac y Influenza, injectable, Madin Heppner Canine Kidney, preservative free 17 2013 [id number] 153 Novartis Pharmaceutica l Bulmaro. (NOV) complet ed Influenza , injectabl e, Madin Michelle Canine Kidney, preservat keith free DoD influenza, seasonal, injectable-pf 2012 [id number] 140 sanofi pasteur complet ed influenza , seasonal, injectabl e-pf 08/18/13 Given Ambulat ory Pharmac y Influenza, seasonal, injectable, preservative free 16 2012 [id number] 140 Sanofi Pasteur (PMC) complet ed Influenza , seasonal, injectabl e, preservat keith free DoD influenza, seasonal, injectable-pf 2011 [id number] 140 CSL Behring complet ed influenza , seasonal, injectabl e-pf 09/09/12 Given Ambulat ory Pharmac y Influenza, seasonal, injectable, preservative free 15 2011 [id number] 140 CSL Biotherapies, Inc. (CSL) complet ed Influenza , seasonal, injectabl e, preservat keith free DoD influenza virus vaccine, live 2010 [id number] 111 [employer] Inc comple t ed influenza virus vaccine, live 08/28/11 Given Ambulat ory Pharmac y influenza virus vaccine, live, attenuated, for intranasal use 14 2010 [id number] 111 Applause, Inc. (MED) complet ed influenza virus vaccine, live, attenuate d, for intranasa l use DoD influenza virus vaccine,split 2009 [id number] 15 CSL Behring complet ed influenza virus vaccine,s plit 09/18/10 Given Ambulat ory Pharmac y influenza virus vaccine, split virus (incl. purified surface antigen)-reti red CODE 1 2009 [id number] 15 Med Access, Inc. (CSL) complet ed influenza virus vaccine, split virus (incl. purified surface antigen)- retired CODE DoD Novel influenza-H1N 1-09, injectable 2008 127 Novartis Pharmaceutica ls complet ed Novel influenza -J4V2-22, injectabl e 11/12/09 Given Ambulat ory Pharmac y Novel influenza-H1N 1-09, injectable 1 2008 127 Novartis Pharmaceutica l Bulmaro. (NOV) complet ed Novel influenza -Z1U1-71, injectabl e DoD influenza virus vaccine,split 2008 [id number] 15 CSL Behring complet ed influenza virus vaccine,s plit 08/30/09 Given Ambulat ory Pharmac y influenza virus vaccine, split virus (incl. purified surface antigen)-reti red CODE 1 2008 [id number] 15 CSGre[employer]ate Power[employer], Inc. (CSL) complet ed influenza virus vaccine, split virus (incl. purified surface antigen)- retired CODE DoD influenza virus vaccine,split 2007 [id number] 15 CSL Behring complet ed influenza virus vaccine,s plit 09/02/08 Given Ambulat ory Pharmac y anthrax vaccine 2007 [id number] 24 Emergent Biosolutions complet ed anthrax vaccine 09/02/08 Given Ambulat ory Pharmac y influenza virus vaccine, split virus (incl. purified surface antigen)-reti red CODE 1 2007 [id number] 15 CSL Biotherapies, Inc. (CS) complet ed influenza virus vaccine, split virus (incl. purified surface antigen)- retired CODE DoD anthrax vaccine 5 2007 [id number] 24 [facility] complet ed anthrax vaccine DoD tetanus, diphtheria, acellular pertu is 2007 [id number] 115 sanofi pasteur complet ed tetanus, diphtheri a, acellular pertussis 06/06/08 Given Ambulat ory Pharmac y measles/mumps /rubella virus vaccine 2007 [id number] 03 sanofi pasteur complet ed measles/m umps/rube lla virus vaccine 06/06/08 Given Ambulat ory Pharmac y measles, mumps and rubella virus vaccine 1 2007 [id number] 03 Sanofi Pasteur ([facility]) complet ed measles, mumps and rubella virus vaccine DoD tetanus toxoid, reduced diphtheria toxoid, and acellular pertu is vaccine, adsorbed 1 2007 [id number] 115 Sanofi Pasteur ([facility]) complet ed tetanus toxoid, reduced diphtheri a toxoid, and acellular pertussis vaccine, adsorbed DoD influenza virus vaccine,split 2006 [id number] 15 GlaxoSmithKli ne complet ed influenza virus vaccine,s plit 09/10/07 Given Ambulat ory Pharmac y influenza virus vaccine, split virus (incl. purified surface antigen)-reti red CODE 1 2006 [id number] 15 XDx (SKB) complet ed influenza virus vaccine, split virus (incl. purified surface antigen)- retired CODE DoD typhoid vaccine, inactivated 2006 [id number] 101 sanofi pasteur complet ed typhoid vaccine, inactivat ed 08/21/07 Given Ambulat ory Pharmac y typhoid vaccine, parenteral, other than acetone-kille d, dried 0 2006 [id number] 41 Sanofi Pasteur ([facility]) complet ed typhoid vaccine, parentera l, other than acetone-k illed, dried DoD influenza virus vaccine,split 2005 [id number] 15 sanofi pasteur complet ed influenza virus vaccine,s plit 10/26/06 Given Ambulat ory Pharmac y influenza virus vaccine, split virus (incl. purified surface antigen)-reti red CODE 1 2005 [id number] 15 Sanofi Pasteur (PMC) complet ed influenza virus vaccine, split virus (incl. purified surface antigen)- retired CODE DoD influenza virus vaccine,split 2004 [id number] 15 [employer] complet ed influenza virus vaccine,s plit 10/02/05 Given Ambulat ory Pharmac y influenza virus vaccine, split virus (incl. purified surface antigen)-reti red CODE 0 2004 [id number] 15 Sanchez (AB) complet ed influenza virus vaccine, split virus (incl. purified surface antigen)- retired CODE DoD typhoid vaccine, inactivated 2004 AVENTIS 101 complet ed typhoid vaccine, inactivat ed 08/07/05 Given Ambulat ory Pharmac y typhoid vaccine, parenteral, other than acetone-kille d, dried 1 2004 AVENTIS 41 () complet ed typhoid vaccine, parentera l, other than acetone-k illed, dried DoD influenza virus vaccine, whole virus 2003 [id number] 16 Novartis Pharmaceutica ls complet ed influenza virus vaccine, whole virus 10/03/04 Given Ambulat ory Pharmac y influenza virus vaccine, whole virus 0 2003 [id number] 16 [employer] ls (PWJ) complet ed influenza virus vaccine, whole virus DoD meningococcal polysaccharid e (MPSV4) 2003 [id number] 32 [employer] complet ed meningoco ccal polysacch aride (MPSV4) 05/26/04 Given Ambulat ory Pharmac y meningococcal polysaccharid e vaccine (MPSV4) 0 2003 [id number] [facility] ed meningoco ccal polysacch aride vaccine (MPSV4) DoD varicella virus vaccine 0 2003 21 () Not Given varicella virus vaccine DoD anthrax vaccine 2003 [id number] 24 Emergent Biosolutions complet ed anthrax vaccine 04/20/04 Given Ambulat ory Pharmac y anthrax vaccine 4 2003 [id number] 24 [employer] [place] ([facility]) complet ed anthrax vaccine DoD vaccinia (smallpox) vaccine 2002 [id number] 75 Paydiant complet ed vaccinia (smallpox ) vaccine 10/07/03 Given Ambulat ory Pharmac y vaccinia (smallpox) vaccine 0 2002 [id number] 75 [employer] (RON) complet ed vaccinia (smallpox ) vaccine DoD anthrax vaccine 2002 [id number] 24 [employer] complet ed anthrax vaccine 10/04/03 Given Ambulat ory Pharmac y anthrax vaccine 3 2002 [id number] 24 [employer] [place] ([facility]) complet ed anthrax vaccine DoD influenza virus vaccine, whole virus 2002 [id number] 16 Novartis Pharmaceutica complet ed influenza virus vaccine, whole virus 09/28/03 Given Ambulat ory Pharmac y influenza virus vaccine, whole virus 0 2002 [id number] 16 José Luis (EVN) complet ed influenza virus vaccine, whole virus DoD anthrax vaccine 2002 [id number] 24 [employer] complet ed anthrax vaccine 09/16/03 Given Ambulat ory Pharmac y anthrax vaccine 2 2002 [id number] 24 [employer] [place] ([facility]) complet ed anthrax vaccine DoD anthrax vaccine 2002 [id number] 24 [employer] complet ed anthrax vaccine 08/31/03 Given Ambulat ory Pharmac y anthrax vaccine 1 2002 [id number] 24 [employer] [place] ([facility]) complet ed anthrax vaccine DoD typhoid vaccine, inactivated 2002 [id number] 101 sanofi pasteur complet ed typhoid vaccine, inactivat ed 06/08/03 Given Ambulat ory Pharmac y tuberculin purified protein derivative 2002 DANIELLEAMCNI CHOLS [id number] 96 complet ed Result Comment: Route: Unknown Manufactu rer: OT ([facility]) 8344R-4 39 AMDS typhoid vaccine, parenteral, other than acetone-kille d, dried 0 2002 D0396-8 41 Sanofi Pasteur ([facility]) complet ed typhoid vaccine, parentera l, other than acetone-k illed, dried DoD influenza virus vaccine, whole virus 2001 [id number] 16 [facility] complet ed influenza virus vaccine, whole virus 11/03/02 Given Ambulat ory Pharmac y influenza virus vaccine, whole virus 0 2001 [id number] 16 [facility] complet ed influenza virus vaccine, whole virus DoD influenza virus vaccine, whole virus 2001 [id number] 16 sanofi pasteur complet ed influenza virus vaccine, whole virus 05/05/02 Given Ambulat ory Pharmac y tuberculin purified protein derivative 2001 DANIELLEAMCNI CHOLS [id number] 96 complet ed Result Comment: Route: Unknown Manufactu rer: [facility] ([facility]) 8344R-4 39 AMDS influenza virus vaccine, whole virus 0 2001 [id number] 16 Sanofi Pasteur ([facility]) complet ed influenza virus vaccine, whole virus DoD yellow fever vaccine 2000 [id number] 37 [facility] complet ed yellow fever vaccine 03/04/01 Given Ambulat ory Pharmac y yellow fever vaccine [id number] [facility] (CON) complet ed yellow fever vaccine DoD typhoid vaccine, inactivated 2000 R2153-9 101 sanofi pasteur complet ed typhoid vaccine, inactivat ed 12/03/00 Given Ambulat ory Pharmac y influenza virus vaccine, whole virus 2000 [id number] 16 [employer] complet ed influenza virus vaccine, whole virus 12/03/00 Given Ambulat ory Pharmac y influenza virus vaccine, whole virus 0 2000 [id number] 16 [facility] ([facility]) complet ed influenza virus vaccine, whole virus DoD typhoid vaccine, parenteral, other than acetone-kille d, dried 0 2000 J0668-1 41 Sanofi Pasteur ([facility]) complet ed typhoid vaccine, parentera l, other than acetone-k illed, dried DoD hepatitis A adult vaccine 1999 [id number] 52 Merck & Company Inc complet ed hepatitis A adult vaccine 09/10/00 Given Ambulat ory Pharmac y hepatitis B adult vaccine 1999 [id number] 43 Merck & Company Inc complet ed hepatitis B adult vaccine 09/10/00 Given Ambulat ory Pharmac y tuberculin purified protein derivative 1999 DANIELLEAMCNI CHOLS [id number] 96 complet ed Result Comment: Route: Unknown Manufactu rer: [facility] ([facility]) 8344R-4 39 AMDS HepB, Adult 1999 DANIELLEAMCNI CHOLS [id number] 43 complet ed Result Comment: Route: Unknown Manufactu rer: Merck (MSD) 8344R-4 39 AMDS hepatitis B vaccine, adult dosage 3 1999 [id number] 43 Merck (MSD) complet ed hepatitis B vaccine, adult dosage DoD hepatitis A vaccine, adult dosage 2 1999 [id number] 52 Merck (MSD) complet ed hepatitis A vaccine, adult dosage DoD influenza virus vaccine, whole virus 1998 [id number] [facility] influenza virus vaccine, whole virus 09/24/99 Given Ambulat ory Pharmac y influenza virus vaccine, whole virus 0 1998 [id number] 16 [facility] ed influenza virus vaccine, whole virus DoD hepatitis B adult vaccine 1998 [id number] A2 43 GlaxoSmithKli ne complet ed hepatitis B adult vaccine 08/24/99 Given Ambulat ory Pharmac y HepB, Adult 1998 MALIHA CHOLS [id number] 43 complet ed Result Comment: Route: Unknown Manufactu rer: [employer] (SKB) 8344R-4 39 AMDS hepatitis B vaccine, adult dosage 2 1998 [id number] A2 43 SmithKline (SKB) complet ed hepatitis B vaccine, adult dosage DoD hepatitis B adult vaccine 1998 [id number] 43 GlaxoSmithKli ne complet ed hepatitis B adult vaccine 07/10/99 Given Ambulat ory Pharmac y HepB, Adult 1998 MALIHA CHOLS [id number] 43 complet ed Result Comment: Route: Unknown Manufactu rer: SmithKlin e (SKB) 8344R-4 39 AMDS hepatitis B vaccine, adult dosage 1 1998 [id number] 43 SmithKline (SKB) complet ed hepatitis B vaccine, adult dosage DoD hepatitis A adult vaccine 1998 [id number] 52 Merck & Company Inc complet ed hepatitis A adult vaccine 05/29/99 Given Ambulat ory Pharmac y poliovirus vaccine, live, oral 1998 [id number] 02 Imprimis Pharmaceuticals complet ed polioviru s vaccine, live, oral 05/29/99 Given Ambulat ory Pharmac y measles/mumps /rubella virus vaccine 1998 03 complet ed measles/m umps/rube lla virus vaccine 05/29/99 Given Ambulat ory Pharmac y trivalent poliovirus vaccine, live, oral 0 1998 0797L 02 Nav (LED) comple t ed trivalent polioviru s vaccine, live, oral DoD measles, mumps and rubella virus vaccine 0 1998 03 () complet ed measles, mumps and rubella virus vaccine DoD hepatitis A vaccine, adult dosage 1 1998 [id number] 52 Merck (MSD) complet ed hepatitis A vaccine, adult dosage DoD influenza virus vaccine, whole virus [id number] [address] [facility] complet ed influenza virus vaccine, whole virus 05/22/99 Given Ambulat ory Pharmac y meningococcal polysaccharid e (MPSV4) 19984438 [id number] 32 [employer] complet ed meningoco ccal polysacch aride (MPSV4) 05/22/99 Given Ambulat ory Pharmac y tetanus-dipht h toxoids (Td) adult/adol 1998 [id number] 09 [employer] complet ed tetanus-d iphth toxoids (Td) adult/ado l 05/22/99 Given Ambulat ory Pharmac y tetanus and diphtheria toxoids, adsorbed, preservative free, for adult use (2 Lf of tetanus toxoid and 2 Lf of diphtheria toxoid) 0 1998 [id number] 09 [employer] (CON) complet ed tetanus and diphtheri a toxoids, adsorbed, preservat keith free, for adult use (2 Lf of tetanus toxoid and 2 Lf of diphtheri a toxoid) DoD influenza virus vaccine, whole virus 0 19981223 [id number] 16 [facility] ([facility]) complet ed influenza virus vaccine, whole virus DoD meningococcal polysaccharid e vaccine (MPSV4) 0 19984117 [id number] 32 [place] (CON) complet ed meningoco ccal polysacch aride vaccine (MPSV4) DoD Results Combined list of recent chemistry, hematology and other laboratory results from Department of Defense and Veterans Affairs, ranging from 15 months to all on record, depending upon the facility. Order Name Results Value Reference Range Date Interpretation Specimen Comments Source Infectiou s Disease HIV-1/O/2 Non-Reac tive 1 (06/07/24 1:13 PM) 06/07 N Interpretiv e Data: INTERPRETAT ION: This method is a screening procedure for the detection of HIV p24 Antigen and Antibodies to HIV-1, including Group O, and/or HIV-2. NON-REACTIV E: HIV-1 antigen and HIV-1 / HIV-2 antibodies were not detected. No laboratory evidence of HIV infection. A negative test result does not exclude the possibility of exposure to or infection with HIV. HIV antibodies and/or p24 antigen may be undetectabl e in some stages of the infection and in some clinical conditions. If acute HIV infection is suspected, consider submitting another specimen to a reference laboratory for HIV-1 RNA. SCREEN REACTIVE - CONFIRMATIO N TO FOLLOW: Possible presence of HIV-1antibo dies, HIV-2 antibodies and/or HIV-1 p24 antigen. Specimen will reflex to the confirmatio n testing that fulfills the Center for Disease Control and Prevention' s HIV diagnostic algorithm. Refer to [facility] Lab Guide for additional information : [email or web address]/ [email or web address] x Testing performed by [place]. [id number] [employer] EPILAB Miscellan eous Sendouts Repository Sample Received (06/07/24 1:13 PM) 06/07 N [id number] EPILAB Encounters Combined list of: 1) Encounters from Department of Veterans Affairs facilities going backup to the last 18 months, not all VA inpatient encounters are included; 2) Encounters from the Department of Defense facilities going backup to 280 months. Location Location Details Encounter Type Encounter Number Reason For Visit Attending Provider ADM Date DC Date Status Disposition Source [facility] Group([facility]) OUTPATIENT [id number] eval cyst on buttock /see orders/ noc RENETTA FRANCISCO 01/10 Released w/o Limitations [employer] [employer]([facility]) OUTPATIENT [id number] JT LENNON 05/23 Released w/o Limitations [employer]([facility]) [employer]([facility]) OUTPATIENT [id number] POST PRIMED VISIT HAYLIE BENAVIDES 07/05 Released w/o Limitations [employer] [employer]([facility]) OUTPATIENT [id number] f/u abscess HAYLIE BENAVIDES Jaylen 07/14 Released w/o Limitations [employer]) [employer]([facility]) OUTPATIENT [id number] flu symptom s NANA SHOEMAKER S 10/23 Released with Work/Duty Limitations [employer] [employer]([facility]) OUTPATIENT [id number] flu like symptom s ANNA SHOEMAKER S 01/04 Released w/o Limitations [employer]([facility]) [employer]([facility]) OUTPATIENT [id number] routine JEFERSON ROOT 05/14 Released w/o Limitations [employer]([facility]) [employer]([facility]) OUTPATIENT [id number] pha/noc /[phone] TIFFANIE PRADHAN 08/19 Released w/o Limitations [employer]([facility]) [employer]([facility]) OUTPATIENT [id number] JOHN CHAN 04/20 Released w/o Limitations [employer]([facility]) [employer](Daryn eficiarie s_Non-AD Only) OUTPATIENT [id number] 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 (LOSART AN) SLOAN JORDAN 06/26 Released w/o Limitations [employer](B enefici aries_N on-AD Only) [employer](Daryn eficiarie s_Non-AD Only) TELE CONSULT [id number] Notes Entered by: SLOAN JORDAN 01 Jul 2015 1212 ------- ------- ------- ------- -- NELDA Taylor 07/01 [employer](B enefici aries_N on-AD Only) [employer](Tro op_AD Only) TELE CONSULT [id number] Notes Entered by: Glen CARRILLO 06 Oct 2015 1025 ------- ------- ------- ------- -- CAC/GS- MED REFILL- ZERO DAYS LEFT PILIRADHA YI 10/06 [facility](T roop_AD Only) [facility](Opt [facility]metry [facility]) TELE CONSULT [id number] Notes Entered by: PATT ANN 22 Jul 2016 0925 ------- ------- ------- ------- -- CAC/KB/ EYE EXAM JOHNNYRA ELENITA ANDERSON 07/22 [facility](O ptometr y Clinic) [facility](Daryn eficiarie s_Non-AD Only) TELE CONSULT [id number] Notes Entered by: Rosa CARRILLO 22 Sep 2016 1426 ------- ------- ------- ------- -- CAC/DDS RX REFILL SCHULYER FOSTER 09/22 [facility](B enefici aries_N on-AD Only) [facility](Tro op_AD Only) OUTPATIENT [id number] finger injury MENDOZA MARCOS 09/23 Released w/o Limitations [facility](T roop_AD Only) [facility](Daryn eficiarie s_Non-AD Only) TELE CONSULT [id number] Notes Entered by: RIMA BEEBE 23 Sep 2016 1439 ------- ------- ------- ------- -- Lt 4th digit EDWIN Dee 09/23 [facility](B enefici aries_N on-AD Only) [facility](Tro op_AD Only) TELE CONSULT [id number] Notes Entered by: OFELIA SCOTT 29 Sep 2016 1200 ------- ------- ------- ------- -- NETWORK RESULTS -ORTHOP EDIC- JUSTIN KNOWLES 09/29 [employer](T roop_AD Only) [employer](Daryn eficiarie s_Non-AD Only) OUTPATIENT [id number] r/s f/u bp/labs ANMOLALEXISFabio Fajardo 11/02 Released w/o Limitations [employer](B enefici aries_N on-AD Only) [employer]([facility]) OUTPATIENT [id number] VA PHAQ DOREEN GIANG 09/19 Released w/o Limitations [employer]([facility]) [employer]([facility]) OUTPATIENT [id number] Z-PHAQ (non-FL Y) ZINA COSTA 07/27 Released w/o Limitations [employer]([facility]) [employer](87 [facility]) OUTPATIENT [id number] Notes Entered by: PARAS MCKEON 25 Aug 2018 1605 ------- ------- ------- ------- -- SMaryIMaryCKarli Medicat ALIE Glover 08/25 Released w/o Limitations [employer](8 7 Cln Pharm Svcs) [employer](Tro op_AD Only) TELE CONSULT [id number] Notes Entered by: Glen CARRILLO 18 Jul 2019 1237 ------- ------- ------- ------- -- CAC/GS- RIGHT THUMB NUMBNES S/TINGL ING/RAD IATING UP RIGHT ARM DARLING CUELLO 07/18 [employer](T roop_AD Only) [employer](Tro op_AD Only) OUTPATIENT [id number] right hand numbnes s/tingl ing LINDA SANDOVAL 07/23 Released w/o Limitations [employer](T roop_AD Only) [employer](BOM C 1 Phys Exams) OUTPATIENT [id number] ADELSO CLINE 07/23 Released w/o Limitations [employer](B O[facility] 1 Phys Exams) [facility](Tro op_AD Only) TELE CONSULT [id number] Notes Entered by: MARYJO WILSON 24 Jul 2019 1453 ------- ------- ------- ------- -- CAC/LC/ X-RAY RESULTS / RAFB CLINIC DARLING CUELLO 07/24 [facility](T roop_AD Only) [facility](Tro op_AD Only) OUTPATIENT [id number] SLOAN ANDUJAR 07/31 Released w/o Limitations [facility](T roop_AD Only) [facility](Tro op_AD Only) TELE CONSULT [id number] Notes Entered by: Rosa CARRILLO 31 Jul 2019 1114 ------- ------- ------- ------- -- NETWORK RESULTS OCC THERAPY 019 LINDA SANDOVAL 07/31 Referred for Appointment [facility] Medical [facility](T roop_AD Only) [facility](Opt ometry Clinic) TELE CONSULT [id number] Notes Entered by: Jared AGRAWAL 20 Sep 2019 0922 ------- ------- ------- ------- -- Resched ulMIGUEL ÁNGEL Mcneal 09/20 [facility](O ptometr y Clinic) [facility] Medical [facility](Tro op_AD Only) TELE CONSULT [id number] Notes Entered by: STANLEY TOM 24 Sep 2019 1028 ------- ------- ------- ------- -- Rx refill DARLING CUELLO 09/24 [facility](T roop_AD Only) [facility](Opt ometry Clinic) OUTPATIENT [id number] Routine exam [place] MIGUEL ÁNGEL Barragan 09/24 Released w/o Limitations [facility] Medical [facility](O ptometr y Clinic) [facility] Medical [facility](Tro op_AD Only) TELE CONSULT [id number] Notes Entered by: LINDA SANDOVAL 27 Sep 2019 0515 ------- ------- ------- ------- -- DARLING Zavala 09/27 [facility](T roop_AD Only) [facility](Tro op_AD Only) OUTPATIENT [id number] F2F/INJ URY/ LOWER BACK PAIN X4MOS SLOAN JORDAN 07/21 Released w/o Limitations [facility](T roop_AD Only) [facility](BOM C 1 Phys Exams) OUTPATIENT [id number] MHA [id number] ADELSO CHARLES 07/25 Released w/o Limitations [facility](B OMC 1 Phys Exams) [facility](Opt ometry Clinic) OUTPATIENT [id number] Annual Exam ALIE CELIS Adolfo 08/11 Released w/o Limitations [facility](O ptometr y Clinic) [facility](Tro op_AD Only) OUTPATIENT [id number] Z-PHAQ LINDA SANDOVAL 08/29 Released w/o Limitations [facility](T roop_AD Only) [facility](Tro op_AD Only) TELE CONSULT [id number] Notes Entered by: STANLEY TOM 04 Dec 2020 0859 ------- ------- ------- ------- -- Javed diallo drop off - Covid vaccine form FABIÁN LEWIS 12/04 Advice Assessment [facility](T roop_AD Only) [facility](Tro op_AD Only) TELE CONSULT [id number] Notes Entered by: LEYLA MORA 21 May 2021 144 ------- ------- ------- ------- -- NETWORK RESULTS URGENT CARE 021 SLOAN JORDAN 05/21 [facility](T roop_AD Only) [facility](Opt ometry Clinic) OUTPATIENT [id number] F2F; ROUTINE EYE EXAM ALIE CELIS 08/17 Released w/o Limitations [employer](O ptometr y Clinic) [employer](Tro op_AD Only) OUTPATIENT [id number] Eliz-NOA PHIPPS 12/24 Released w/o Limitations [employer](T roop_AD Only) [id number] AMDS Between Visit [id number] 06/13 Discharge Disposition: Home or Self Care 8344R-4 39 AMDS 8344R-439 AMDS Between Visit [id number] 06/13 Discharge Disposition: Home or Self Care 8344R-4 39 AMDS 8344R-439 AMDS Between Visit [id number] 06/28 Discharge Disposition: Home or Self Care 8344R-4 39 AMDS 8344R-439 AMDS Between Visit [id number] 06/28 Discharge Disposition: Home or Self Care 8344R-4 39 AMDS 0310C-AF- C-[facility] [place] Between Visit [id number] 07/04 Discharge Disposition: Home or Self Care 0310C-A F-C-[facility]t [facility] [place] Procedures Combined list of: 1) Procedures from Department of Veterans Affairs facilities going back up to thelast 18 months, not all VA non-surgical procedures are included; 2) All procedures from the Department of Defense facilities. Procedure Procedure Type Code Date Perfomer Comments Sourc e No data available for this section [facility] MEDICATION THERAPY MANAGEMENT SERVICE(S) PROVIDED BY A PHARMACIST, INDIVIDUAL, HQWF-ON-VBPE WITH PATIENT, WITH ASSESSMENT AND INTERVENTION IF PROVIDED; INITIAL 15 MINUTES, ESTABLISHED PATIENT 018 DoD FITTING OF SPECTACLES, EXCEPT FOR APHAKIA; MONOFOCAL 009 DoD IMMUNIZATION ADMINISTRATION (INCLUDES PERCUTANEOUS, INTRADERMAL, SUBCUTANEOUS, OR INTRAMUSCULAR INJECTIONS); 1 VACCINE (SINGLE OR COMBINATION VACCINE/TOXOID) 003 DoD HANDLING AND/OR CONVEYANCE OF SPECIMEN FOR TRANSFER FROM THE OFFICE TO A LABORATORY 002 DoD FITTING OF SPECTACLES, EXCEPT FOR APHAKIA; MONOFOCAL DoD ADMINISTRATION OF PATIENT-FOCUSED HEALTH RISK ASSESSMENT INSTRUMENT (EG, HEALTH HAZARD APPRAISAL) WITH SCORING AND DOCUMENTATION, PER STANDARDIZED INSTRUMENT [facility] SCANNING COMPUTERIZED OPHTHALMIC DIAGNOSTIC IMAGING, POSTERIOR SEGMENT, WITH INTERPRETATION AND REPORT, UNILATERAL OR BILATERAL; OPTIC NERVE DoD BRIEF COMM TECH-BASE SERV,E.G. VIRT CHK-IN,BY PHYS/OTH QUAL HCP,RPT E&M SERV,PROV TO EST PT,NOT ORIG FRM REL E/M SERV PROV W/IN PREV 7DAY NOR LEAD TO E/M SRV/PX W/IN NEXT 24HR/SOON RAINA; 5-10 MIN DISC DoD DETERMINATION OF REFRACTIVE STATE DoD TELE ASSESS & MGT SRV PROV QUAL NONPHYS HLTH CARE PRO TO EST PAT,PARENT,GUARD NOT ORIG REL ASSESS & MGT SRV PROV W/IN PREV 7 DAYS NOR LEAD ASSESS & MGT SRV/PX W/IN NXT 24 HR/SOON APT;5-10 MIN MED DIS DoD ADMINISTRATION OF PATIENT-FOCUSED HEALTH RISK ASSESSMENT INSTRUMENT (EG, HEALTH HAZARD APPRAISAL) WITH SCORING AND DOCUMENTATION, PER STANDARDIZED INSTRUMENT DoD TELE ASSESS & MGT SRV PROV QUAL NONPHYS HLTH CARE PRO TO EST PAT,PARENT,GUARD NOT ORIG REL ASSESS & MGT SRV PROV W/IN PREV 7 DAYS NOR LEAD ASSESS & MGT SRV/PX W/IN NXT 24 HR/SOON APT;5-10 MIN MED DIS DoD ONLINE ASSESS &MANAG SERV PROVIDE,A QUAL NONPHYS HCP TO AN ESTABLISHED PAT/GUARDIAN,NOT ORIGINAT FRM RELAT ASSESS &MANAG SERV PROVIDE W/IN THE PREV 7 DAYS,USE THE INTERNET/SIMILAR Connolly COMM NETWORK DoD TELE ASSESS & MGT SRV PROV QUAL NONPHYS HLTH CARE PRO TO EST PAT,PARENT,GUARD NOT ORIG REL ASSESS & MGT SRV PROV W/IN PREV 7 DAYS NOR LEAD ASSESS & MGT SRV/PX W/IN NXT 24H/SOON APT; 11-20 MIN MED DIS DoD ADMINISTRATION OF PATIENT-FOCUSED HEALTH RISK ASSESSMENT INSTRUMENT (EG, HEALTH HAZARD APPRAISAL) WITH SCORING AND DOCUMENTATION, PER STANDARDIZED INSTRUMENT [facility] BRIEF EMOTIONAL/BEHAVIORA L ASSESSMENT (EG, DEPRESSION INVENTORY, ATTENTION-DEFICIT/H YPERACTIVITY DISORDER [ADHD] SCALE), WITH SCORING AND DOCUMENTATION, PER STANDARDIZED INSTRUMENT [facility] TELE ASSESS & MGT SRV PROV QUAL NONPHYS HLTH CARE PRO TO EST PAT,PARENT,GUARD NOT ORIG REL ASSESS & MGT SRV PROV W/IN PREV 7 DAYS NOR LEAD ASSESS & MGT SRV/PX W/IN NXT 24 HR/SOON APT;5-10 MIN MED DIS [facility] Determination Of Refractive State Determination Of Refractive State [id number] MIGUEL ÁNGEL WEN [facility] Ophthalmological New Patient Start Comprehensive Care Ophthalmological New Patient Start Comprehensive Care [id number] MIGUEL ÁNGEL WEN [facility] Spectacles Services Fitting Monofocals (Not For Aphakia) [facility] Fitting Monofocals (Not For Aphakia) [id number] MIGUEL ÁNGEL WEN Request srts record DoD Non-Physician Phone Call To Patient/Provider Brief (5-10min) Non-Physician Phone Call To Patient/Provider Brief (5-10min) [phone] DARLING CUELLO DoD Non-Physician Phone Call To Patient/Provider Brief (5-10min) Non-Physician Phone Call To Patient/Provider Brief (5-10min) [phone] DARLING CUELLO [facility] Internet Med Svc Qual Nonphys Healthcare Prof Estab Patient Internet Med Svc Qual Nonphys Healthcare Prof Estab Patient [phone] ADELSO CHARLES DoD Non-Physician Phone Call To Pt/Provider Intermed (11-20 min) Non-Physician Phone Call To Pt/Provider Intermed (11-20 min) [phone] DARLING CUELLO DoD Med Management By Pharmacist Initial 15 Min Estab Patient Med Management By Pharmacist Initial 15 Min Estab Patient [phone] PARAS MCKEON [facility] Non-Physician Phone Call To Patient/Provider Brief (5-10min) Non-Physician Phone Call To Patient/Provider Brief (5-10min) [phone] EDWIN SUERO [facility] Ophthalmological New Patient Start Comprehensive Care Ophthalmological New Patient Start Comprehensive Care [phone] JEFERSON ROOT [facility] Determination Of Refractive State Determination Of Refractive State [id number] JEFERSON ROOT [facility] Spectacles Services Fitting Monofocals (Not For Aphakia) [facility] Fitting Monofocals (Not For Aphakia) [phone] ROOTJEFERSON [facility] Brief communication technology-based service, e.g. virtual check-in, by a physician or other qualified health care profe theron who can report evaluation and management services, provided to an established patient, not originating from a related E/M service provided within the previous 7 days nor leading to an E/M service or procedure within the next 24 hours or soonest available appointment; 5-10 minutes of medical discu ADELSO Foley [facility] Ophthalmological Prior Patient Start Comprehensive Care Ophthalmological Prior Patient Start Comprehensive Care 14492 ALIE CELIS [facility] Determination Of Refractive State Determination Of Refractive State [id number] ALIE CELIS [facility] Spectacles Services Fitting Monofocals (Not For Aphakia) [facility] Fitting Monofocals (Not For Aphakia) 75343 ALIE CELIS [facility] Scanning Computerized Ophthalmic Diagnostic Imaging Optic Nerve Scanning Computerized Ophthalmic Diagnostic Imaging Optic Nerve 98195 ALIE CELIS OCT: RNFL/GCL no thinning OD/OS DoD Social History Combined list of available smoking, tobacco, and other social history from Department of Defense and Veterans Affairs facilities. Social History Type Response Date Comment Sour e Sex Representation Male (finding) 06/24/2022 Un known Organization Sexual Orientation Ambula tory Pharmacy Gender identity Ambulator y Pharmacy This section is an empty social history section. DoD Assessment and Plan Combined list of future care activities from Department of Defense and Veterans Affairs facilities (e.g., assessment and plan notes, appointments, orders, and referrals). Additional future care activities may be listed in the Plan of Care section. Result Assessment and Plan Date Source Assessment and Plan Extracted from:Title : DD Form 2813 - SMSgt Cali ([id number]) Author: JUVE LOCKETT Date: 03/29/25 Entered by JUVE LOCKETT on March 29, 2025 10:06:20 EDT Received D D Form 2813 for patient and updated in CDA / CDS. Please allow for 24 - 48 hours to reflect in ASIMS and allow patient s IMR to reflect current. From: Ganga Cali To: vzaar [place] 439 AMDS Readiness Sent: 03/28/2025 11:19 a.m. PDT Subject: DD Form 2813 - SMSgt Viraj ([id number]) Please see the attached DD Form 2813 dated 12 Mar 2025. Extracted from:Title: Eye Care Office Visit Note - REE no DFE Author: GEORGIA LUCIANO, OD Date: 07/17/24 1. E ncounter for examination of eyes and vision with abnormal findings 2. R etinal dot hemorrhage Noted one isolated and small dot heme inf nasal to disc w/out BRVO or other hemes in posterior pole. No Tx. Ptnt has BP under control and does not have DM. See back in 6-8 weeks for DFE and revaluation. 3. B ilateral hyperopia of eyes No Rx indicated today as has reading glasses. 4. D isorder of bilateral optic nerves Noted increased CD ratio with low IOPs and low normal OCT. Repeat scan in 2 months to monitor RNFL. Extracted from:Title: Eye Care Office Visit Note - REE Author: GEORGIA LUCIANO, OD Date: 07/25/23 1. E XAM/ASSESSMENT, OCCUPATIONAL, DIRECTOR EDUCATION PERIODIC HEALTH ASSESSMENT (PHA) 2. H yperopia of both eyes Low Rx, order readers. No path with dilated eye exam. Noted small area of CR atrophic changes at 2 in OS. No Tx f/u 2 years. Noted increased CD ratio with normal OCT. No Tx but monitor in two years. 07/05/2025 [id number]-[id number] AMDS Assessment and Plan Extracted from:Title : DD Form 2813 - SMSgt Cali ([id number]) Author: JUVE LOCKETT Date: 03/29/25 Entered by JUVE LOCKETT on March 29, 2025 10:06:20 EDT Received D D Form 2813 for patient and updated in CDA / CDS. Please allow for 24 - 48 hours to reflect in ASIMS and allow patient s IMR to reflect current. From: Ganga Cali To: [employer] [place] 439 AMDS Readiness Sent: 03/28/2025 11:19 a.m. PDT Subject: DD Form 2813 - SMSheather Cali ([id number]) Please see the attached DD Form 2813 dated 12 Mar 2025. Extracted from:Title: Eye Care Office Visit Note - REE no DFE Author: GEORGIA LUCIANO, OD Date: 07/17/24 1. E ncounter for examination of eyes and vision with abnormal findings 2. R etinal dot hemorrhage Noted one isolated and small dot heme inf nasal to disc w/out BRVO or other hemes in posterior pole. No Tx. Ptnt has BP under control and does not have DM. See back in 6-8 weeks for DFE and revaluation. 3. B ilateral hyperopia of eyes No Rx indicated today as has reading glasses. 4. D isorder of bilateral optic nerves Noted increased CD ratio with low IOPs and low normal OCT. Repeat scan in 2 months to monitor RNFL. Extracted from:Title: Eye Care Office Visit Note - REE Author: GEORGIA LUCIANO, OD Date: 07/25/23 1. E XAM/ASSESSMENT, OCCUPATIONAL, DIRECTOR EDUCATION PERIODIC HEALTH ASSESSMENT (PHA) 2. H yperopia of both eyes Low Rx, order readers. No path with dilated eye exam. Noted small area of CR atrophic changes at 2 in OS. No Tx f/u 2 years. Noted increased CD ratio with normal OCT. No Tx but monitor in two years. 07/05/2025 [id number] Functional Status Combined list of recent functional and cognitive assessments recorded at Department of Defense and Veterans Affairs (VA).VA Functional [place] Measurement (FIM) Scale: 1 = Total Assistance (Subject = 0% +), 2 = Maximal Assistance (Subject = 25% +), 3 = Moderate Assistance (Subject = 50% +), 4 = Minimal Assistance (Subject = 75% +), 5 = Supervision, 6 = Modified [place] (Device), 7 = Complete [place] (Timely, Safely). Assessment Date/Time Source Assessment Type Assessment Skill Assessment Score Assessment Details No data available for this section
--- OUTSIDE RECORDS SUMMARY | 2025-07-05 09:55 | XMS_ITS | Clinical Summary ---
Author Organization [address] Address [address] [place] [id number] Care Team Providers Care Central Office Repairer Name Role Phone Torey Cabrera MD Primary Care Provider [phone] Allergies Active Allergy Reactions Criticality Noted Date [...] to complete this topic Insurance Care Teams Central Office Repairer Relationship Specialty Start Date End Date Torey Cabrera MD [address] [place] [phone] PCP - General Family Medicine 11/23/24
--- OUTSIDE RECORDS SUMMARY | 2025-07-05 09:55 | XMS_ITS | Patient Health Record ---
Author Organization [facility] Address [address] [place] [address] Care Team Providers Care Digital Media Strategist Name Role Phone Slava James Primary Care Provider UnavailKd De La Torre Unavailable [phone] Keyon COVERED BUCKLE ASSEMBLER C, Aleisha Unavailable Unavailable Migration, Provider Unavailable Unavailable Allergies No Known Allergies Reason For Referral No Information Medications Medication SIG (Take, Route, Frequency, Duration) Notes Start Date End Date Status Ultram 50 mg/Tramadol HCL 1 tablet(s) PRN PAIN by mouth TID *Reorder from [employer] for eRx and Interaction Alerts* 09/23/2016 Active Losartan Potassium 50 MG Tablet Oral QD (Daily) Active Problems Problem Type SNOMED Code ICD Code Onset Dates Problem Status W/U Status Risk Notes Problem Unspecified essential hypertension (401.9) 09/23/2016 Active confirmed Encounters Encounter Location Date Provider Diagnosis [facility] [address] [place] [phone] [facility] [address] [place] [phone] 06/23/2025 Provider Migration Plan Of Treatment No Information
--- NOTE | 2025-07-05 10:02 | MHC.OFFVIS ---
Vital Signs 07/05/25 10:08 Weight 190 lb BP 135/84 Blood Pressure Location Rt brachial Position Sitting Pulse 83 Intake Visit Reasons: s/p LIH w/mesh Intake Note: Patient is seen in office for post op assessment post left inguinal hernia repair. Pt c/o: slight pain along incision. Denies oozing. Steri strips fell off yesterday. Taking Tylenol as needed surgery:06/24/25 [employer] Executive Required: No Accompanied by: Self / Same As Patient Allergies naproxen Allergy (Mild, Verified 07/05/25 10:06) Rash HPI Comments Details: 44-year-old male patient returning 1 week following repair of a left inguinal hernia with mesh on 06/24/2025. He tolerated the procedure well and does note some swelling and discomfort in the incision. He is taking extra-strength Tylenol which seems to help with the discomfort. He denies any bleeding or discharge from the incision. He is eating well and denies any difficulties with his bowels. COUNT INCLUDES THE [facility] Medical History Hemangioma Renal cyst Cervical radiculitis Allergies High blood pressure Surgical History Hx of left inguinal hernia repair (06/24/25) History of cervical discectomy Hx of wisdom tooth extraction Family History Father High blood pressure High cholesterol Mother High blood pressure High cholesterol Maternal Grandmother High blood pressure High cholesterol Diabetes Paternal Grandfather Diabetes High blood pressure High cholesterol Paternal Grandmother Diabetes High blood pressure High cholesterol Other No family history of mental disorder Social History Housing: Apartment Are you a primary animal care taker to a significant other at home: No Do you presently have visiting nurse or other home services: No Patient Tobacco Use Status: Never used Tobacco e-Cigarette/Vaping Use: Never Used Second Hand Smoke Exposure: No service: Yes 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 No changes noted with Valsalva maneuvers. No evidence of infection, hematoma or seroma. Extrem Other: No edema Assessment & Plan Assessment & Plan (1) Left inguinal hernia: Code(s): K40.90 - Unilateral inguinal hernia, without obstruction or gangrene, not specified as recurrent Category: Medical Plan 44-year-old male status post repair of a left inguinal hernia with mesh. He tolerated the procedure well in his wounds are healing nicely. There was no evidence of infection or recurrence. I recommended he continue to avoid lifting greater than 10 lb and return in approximately 4 weeks for final wound check. He is welcome to call sooner for any new concerns. Coding Level of Care Code Global (49488) Diagnoses Left inguinal hernia K40.90
[2025-07-05 10:08] VITALS: BP 135/84; PULSE 83
== END 2025-07-05 10:13 | disposition home or self-care (01) ==
LOC: HO.HGS 09:52
PROVIDERS: PCP Family Medicine; Visit Provider Surgery
DX: K40.90 Unilateral inguinal hernia, without obstruction or gangrene, not specified as recurrent (principal)
CPT/HCPCS: 99024

== ENCOUNTER → 2025-07-05 09:51 | Outpatient (BNVA) | payer OTHER, SELFPAY | PROVIDERS: PCP Family Medicine; Visit Provider Surgery | DX: Z48.815 Encounter for surgical aftercare following surgery on the digestive system (principal); Z98.890 Other specified postprocedural states | CPT/HCPCS: 99212 ==

== ENCOUNTER 2025-07-26 11:27 | Outpatient (REF) | payer OTHER, SELFPAY ==
--- OUTSIDE RECORDS SUMMARY | 2025-06-22 05:00 | XMS_ITS ---
Author Organization [facility] Address [address] [place] [address] Care Team Providers Care Hat Sizer Name Role Phone JacobRomeron Primary Care Provider UnavailKd De La Torre Unavailable [phone] Keyon WELLNESS CONSULTANT C, Aleisha Unavailable Unavailable Migration, Provider Unavailable Unavailable REASON FOR VISIT EMR-Jacinto Encounters Encounter Location Date Provider Diagnosis [facility] [address] [place] [address] 06/22/2025 Provider Migration Plan Of Treatment No Information Progress Notes * Ganga CALI ADOB: [birth year] (44 yo M)Acc No.[id number]:06/22/2025 Patient: Luis Ganga GILMORE :1980 A ge:44 Y S ex:Male Phone: Address:[address], [facility] [place] [address] Subjective: * Chief Complaints: * E MR-Jacinto * * Date:
--- OUTSIDE RECORDS SUMMARY | 2025-06-23 05:00 | XMS_ITS ---
Author Organization [facility] Address [address] [place] [address] Care Team Providers Care Materials Director Name Role Phone Slava James Primary Care Provider UnavailKd De La Torre Unavailable [phone] Keyon OXIDATION OPERATOR C, Aleisha Unavailable Unavailable Migration, Provider Unavailable Unavailable Allergies No Known Allergies REASON FOR VISIT EMR-Jacinto Medications Medication SIG (Take, Route, Frequency, Duration) Notes Start Date End Date Status Ultram 50 mg/Tramadol HCL 1 tablet(s) PRN PAIN by mouth TID *Reorder from [employer] for eRx and Interaction Alerts* 09/23/2016 Active Losartan Potassium 50 MG Tablet Oral QD (Daily) Active Encounters Encounter Location Date Provider Diagnosis [facility] [address] [place] [address] [address] [place] [address] 06/23/2025 Provider Migration Plan Of Treatment No Information Progress Notes * Ganga CALI ADOB: [birth year] (44 yo M)Acc No.[id number]:06/23/2025 Patient: Luis GILMOREGanga :1980 A ge:44 Y S ex:Male Phone: Address:[address], [facility] [place] [address] Subjective: * Chief Complaints: * E MR-Jacinto * Medications: T akingUltram 50 mg/Tramadol HCL 1 tablet(s) PRN PAIN by mouth TID , Notes to Pharmacist: *[facility] and Interaction [facility]*Losartan Potassium 50 MG Tablet Oral QD (Daily) Taking Ultram 50 mg/Tramadol HCL 1 tablet(s) PRN PAIN by mouth TID , Notes to Pharmacist: *[facility] for [facility]Rx and Interaction Alerts*Taking Losartan Potassium 50 MG Tablet Oral QD (Daily) * Allergies: N .K.D.A. * * Date:
--- OUTSIDE RECORDS SUMMARY | 2025-07-26 12:28 | XMS_ITS | Continuity of Care Document ---
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 It does not include entries that were removed or entered in error. 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 Medication Details Route Status Patient Instructions Prescription Expires Prescription Number Last Dispense Date Ordering Provider Order Date Order Qty Source AMLODIPINE BESYLATE (amlodipine besylate), 5 MG, TABLET, ORAL, LUPIN PHARMACEU, 1000 ea. BOTTLE Cancele d [id number] : 2023 0 Pharmac y Data Transac [...] Site Reaction Lot Number CVX Code Drug Junction Maker Status Comments Source SARS-CoV-2 (COVID-19) mRNA-Bivalent 2023 DANIELLEAMCNI CHOLS Shoul varghese, left (delt oid) [id number] 8aweek. complet ed SARS-CoV- 2 (COVID-19 ) mRNA-Biva lent 08/29/24 Recorded 8344R-4 39 AMDS Influenza, trivlanent, adjuvanted, pf 2023 DANIELLEAMCNI CHOLS Shoul varghese, left (delt oid) [id number] 168 GlaxoSmithKli ne complet ed Influenza , trivlanen t, adjuvante d, pf 08/29/24 Recorded 8344R-4 39 AMDS influenza, injectable, quadrivalent- pf 2022 DANIELLEAMCNI CHOLS 150 complet ed Result Comment: Route: Unknown Manufactu rer: OTH (SEQ) 8344R-4 39 AMDS COVID-19 vaccine(Chauncey vax 12y+) 2022 DANIELLEAMCNI CHOLS 312 complet ed Result Comment: Route: Unknown Manufactu rer: OTH (MOD) 8344R-4 39 AMDS influenza, injectable, quadrivalent- pf 2021 DANIELLEAMCNI CHOLS [id number] 150 complet ed Result Comment: Route: Unknown Manufactu rer: OTH (SKB) 8344R-4 39 AMDS SARS-CoV-2 (COVID-19) mRNA-Bivalent 2021 DANIELLEAMCNI CHOLS [id number] 229 complet ed Result Comment: Route: Unknown Manufactu rer: OTH (MOD) 8344R-4 39 AMDS influenza, injectable, quadrivalent- pf 2020 [id number] 150 GlaxoSmithKli ne complet ed influenza , injectabl e, quadrival ent-pf 08/17/21 Given Ambulat ory Pharmac y Influenza, injectable, quadrivalent, preservative free 1 2020 [id number] 150 [facility] (SKB) complet ed Influenza , injectabl e, quadrival ent, preservat keith free DoD COVID Vaccine Moderna 2020 [id number] 207 complet ed COVID Vaccine Moderna 02/11/21 Given Ambulat ory Pharmac y SARS-COV-2 (COVID-19) vaccine, mRNA, spike protein, LNP, preservative free, 100 mcg or 50 mcg dose 2 2020 [id number] 207 Moderna [employer] (MOD) complet ed SARS-COV- 2 (COVID-19 ) vaccine, mRNA, spike protein, LNP, preservat keith free, 100 mcg or 50 mcg dose DoD COVID Vaccine Moderna 2020 [id number] 207 complet ed COVID Vaccine Moderna 01/07/21 Given Ambulat ory Pharmac y SARS-COV-2 (COVID-19) vaccine, mRNA, spike protein, LNP, preservative free, 100 mcg or 50 mcg dose 1 2020 [id number] 207 Moderna [employer] (MOD) complet ed SARS-COV- 2 (COVID-19 ) vaccine, mRNA, spike protein, LNP, preservat keith free, 100 mcg or 50 mcg dose DoD influenza, injectable, quadrivalent 2019 [id number] 158 Seqirus complet ed influenza , injectabl e, quadrival ent 09/11/20 Given Ambulat ory Pharmac y influenza, injectable, quadrivalent, contains preservative 1 2019 [id number] 158 Seqirus (SEQ) complet ed influenza , injectabl e, quadrival ent, contains preservat keith DoD influenza, injectable, quadrivalent- pf 2018 150 complet ed influenza , injectabl e, quadrival ent-pf 09/11/19 Given Ambulat ory Pharmac y INFLUENZA, INJECTABLE, QUADRIVALENT 2018 158 complet ed HISTORICA L INFORMATI ON - FROM OTHER PROVIDER, Partner: [facility]. Administe red by: RADHA BROWN (JCG=[phone] [id number]). Partner 46 Lot#: [id number] Mfr: SEQIRUS; Dosage: 0.5 [facility] Influenza, injectable, quadrivalent, preservative free 0 2018 [...] DoD Influenza, inj, MDCK, quadrivalent- pf 2016 [id number] 171 Seqirus complet ed Influenza , inj, MDCK, quadrival ent-pf 09/28/17 Given Ambulat ory Pharmac y Influenza, injectable, Madin Michelle Canine Kidney, preservative free, quadrivalent 20 2016 [id number] 171 Seqirus (SEQ) comple t ed Influenza , injectabl e, Madin Michelle Canine Kidney, preservat keith free, quadrival ent DoD influenza, injectable, quadrivalent- pf 2015 [id number] 150 GlaxoSmithKli ne complet ed influenza , injectabl e, quadrival ent-pf 09/20/16 Given Ambulat ory Pharmac y Influenza, injectable, quadrivalent, preservative free 19 2015 [id number] 150 [employer] (SKB) complet ed Influenza , injectabl e, quadrival ent, preservat keith free DoD influenza, injectable, quadrivalent- pf 2014 [id number] 150 GlaxoSmithKli ne complet ed influenza , injectabl e, quadrival ent-pf 08/21/15 Given Ambulat ory Pharmac y Influenza, injectable, quadrivalent, preservative free 0 2014 [id number] 150 Smithine (SKB) complet ed Influenza , injectabl e, quadrival ent, preservat keith free DoD Influenza, injectable, MDCK-pf 2013 [id number] 153 Novartis Pharmaceutica ls complet ed Influenza , injectabl e, MDCK-pf 09/14/14 Given Ambulat ory Pharmac y Influenza, injectable, Madin Hendrix Canine Kidney, preservative free 17 2013 [id number] 153 Novartis Wengotica l Bulmaro. (NOV) complet ed Influenza , injectabl e, Madin Hendrix Canine Kidney, preservat keith free DoD influenza, seasonal, injectable-pf 2012 [id number] 140 sanofi pasteur complet ed influenza , seasonal, injectabl e-pf 08/18/13 Given Ambulat ory Pharmac y Influenza, seasonal, injectable, preservative free 16 2012 [id number] 140 Sanofi Pasteur ([facility]) complet ed Influenza , seasonal, injectabl e, preservat keith free DoD influenza, seasonal, injectable-pf 2011 [id number] 140 CSL Behring complet ed influenza , seasonal, injectabl e-pf 09/09/12 Given Ambulat ory Pharmac y Influenza, seasonal, injectable, preservative free 15 2011 [id number] 140 CSOxis International Biotherapies, Inc. (CSL) complet ed Influenza , seasonal, injectabl e, preservat keith free DoD influenza virus vaccine, live 2010 [id number] 111 FileTrekune Inc comple t ed influenza virus vaccine, live 08/28/11 Given Ambulat ory Pharmac y influenza virus vaccine, live, attenuated, for intranasal use 14 2010 [id number] 111 MedImmune, Inc. (MED) complet ed influenza virus vaccine, live, attenuate d, for intranasa l use DoD influenza virus vaccine,split 2009 [id number] 15 CSL Behring complet ed influenza virus vaccine,s plit 09/18/10 Given Ambulat ory Pharmac y influenza virus vaccine, split virus (incl. purified surface antigen)-reti red CODE 1 2009 [id number] 15 CSL Digital Legendsherapies, Inc. (CSL) complet ed influenza virus vaccine, split virus (incl. purified surface antigen)- retired CODE DoD Novel influenza-H1N 1-09, injectable 2008 127 Novartis Pharmaceutica ls complet ed Novel influenza -D2D6-82, injectabl e 11/12/09 Given Ambulat ory Pharmac y Novel influenza-H1N 1-09, injectable 1 2008 127 Novartis Pharmaceutica l Bulmaro. (NOV) complet ed Novel influenza -N2M2-07, injectabl e DoD influenza virus vaccine,split 2008 [id number] [id number] 15 CSL Behring complet ed influenza virus vaccine,s plit 08/30/09 Given Ambulat ory Pharmac y influenza virus vaccine, split virus (incl. purified surface antigen)-reti red CODE 1 2008 [id number] [id number] 15 CSDreamforgeapies, Inc. (CSL) complet ed influenza virus vaccine, split virus (incl. purified surface antigen)- retired CODE DoD influenza virus vaccine,split 2007 [id number] 1A 15 CSL Behring complet ed influenza virus vaccine,s plit 09/02/08 Given Ambulat ory Pharmac y anthrax vaccine 2007 [id number] 24 Emergent Biosolutions complet ed anthrax vaccine 09/02/08 Given Ambulat ory Pharmac y influenza virus vaccine, split virus (incl. purified surface antigen)-reti red CODE 1 2007 [id number] 1A 15 CSDreamforgeapA LITTLE WORLD, Inc. (CSL) complet ed influenza virus vaccine, split virus (incl. purified surface antigen)- retired CODE DoD anthrax vaccine 5 2007 [id number] 24 Emergent BioDefense Operations [place] ([facility]) complet ed anthrax vaccine DoD tetanus, diphtheria, acellular pertu is 2007 [id number] 115 sanofi pasteur complet ed tetanus, diphtheri a, acellular pertussis 06/06/08 Given Ambulat ory Pharmac y measles/mumps /rubella virus vaccine 2007 [id number] 03 sanofi pasteur complet ed measles/m umps/rube lla virus vaccine 06/06/08 Given Ambulat ory Pharmac y measles, mumps and rubella virus vaccine 1 2007 [id number] 03 Sanofi Pasteur ([facility]) complet ed measles, mumps and rubella virus vaccine DoD tetanus toxoid, reduced diphtheria toxoid, and acellular pertu is vaccine, adsorbed 1 2007 [id number] 115 Sanofi Pasteur ([facility]) complet ed tetanus toxoid, reduced diphtheri a toxoid, and acellular pertussis vaccine, adsorbed DoD influenza virus vaccine,split 2006 [id number] 15 wmb[employer] fl complet ed influenza virus vaccine,s plit 09/10/07 Given Ambulat ory Pharmac y influenza virus vaccine, split virus (incl. purified surface antigen)-reti red CODE 1 2006 [id number] 15 Blast Ramp ([facility]) complet ed influenza virus vaccine, split virus (incl. purified surface antigen)- retired CODE DoD typhoid vaccine, inactivated 2006 [id number] 101 sanofi pasteur complet ed typhoid vaccine, inactivat ed 08/21/07 Given Ambulat ory Pharmac y typhoid vaccine, parenteral, other than acetone-kille d, dried 0 2006 [id number] 41 Sanofi Pasteur ([facility]) complet ed typhoid vaccine, parentera l, other than acetone-k illed, dried DoD influenza virus vaccine,split 2005 [id number] 15 sanofi pasteur complet ed influenza virus vaccine,s plit 10/26/06 Given Ambulat ory Pharmac y influenza virus vaccine, split virus (incl. purified surface antigen)-reti red CODE 1 2005 [id number] 15 Sanofi Pasteur ([facility]) complet ed influenza virus vaccine, split virus (incl. purified surface antigen)- retired CODE DoD influenza virus vaccine,split 2004 [id number] 15 Sanchez Playteau complet ed influenza virus vaccine,s plit 10/02/05 Given Ambulat ory Pharmac y influenza virus vaccine, split virus (incl. purified surface antigen)-reti red CODE 0 2004 [id number] 15 Sanchez (AB) complet ed influenza virus [...] DoD influenza virus vaccine, whole virus 2003 [id number] 16 Novartis Pharmaceutica ls complet ed influenza virus vaccine, whole virus 10/03/04 Given Ambulat ory Pharmac y influenza virus vaccine, whole virus 0 2003 [id number] 16 PowderJect Pharmaceutica ls (PWJ) complet ed influenza virus vaccine, whole virus DoD meningococcal polysaccharid e (MPSV4) 2003 [id number] 32 [employer] complet ed meningoco ccal polysacch aride (MPSV4) 05/26/04 Given Ambulat ory Pharmac y meningococcal polysaccharid e vaccine (MPSV4) 0 2003 [id number] 32 [facility] complet ed meningoco ccal polysacch aride vaccine (MPSV4) DoD varicella virus vaccine 0 2003 21 () Not Given varicella virus vaccine DoD anthrax vaccine 2003 [id number] 24 Emergent Biosolutions complet ed anthrax vaccine 04/20/04 Given Ambulat ory Pharmac y anthrax vaccine 4 2003 [id number] 24 [facility] [place] ([facility]) complet ed anthrax vaccine DoD vaccinia (smallpox) vaccine 2002 [id number] 75 Converged Access complet ed vaccinia (smallpox ) vaccine 10/07/03 Given Ambulat ory Pharmac y vaccinia (smallpox) vaccine 0 2002 [id number] 75 [facility] ([facility]) complet ed vaccinia (smallpox ) vaccine DoD anthrax vaccine 2002 [id number] 24 Emergent Biosolutions complet ed anthrax vaccine 10/04/03 Given Ambulat ory Pharmac y anthrax vaccine 3 2002 [id number] 24 [employer] [place] ([facility]) complet ed anthrax vaccine DoD influenza virus vaccine, whole virus 2002 [id number] 16 Novartis Pharmaceutica complet ed influenza virus vaccine, whole virus 09/28/03 Given Ambulat ory Pharmac y influenza virus vaccine, whole virus 0 2002 [id number] 16 José Luis (JENARON) complet ed influenza virus vaccine, whole virus DoD anthrax vaccine 2002 [id number] 24 Emergent Biosolutions complet ed anthrax vaccine 09/16/03 Given Ambulat ory Pharmac y anthrax vaccine 2 2002 [id number] 24 [employer] [place] ([facility]) complet ed anthrax vaccine DoD anthrax vaccine 2002 [id number] 24 Emergent Biosolutions complet ed anthrax vaccine 08/31/03 Given Ambulat ory Pharmac y anthrax vaccine 1 2002 [id number] 24 [facility] ([facility]) complet ed anthrax vaccine DoD typhoid vaccine, inactivated 2002 V3311-0 101 sanofi pasteur complet ed typhoid vaccine, inactivat ed 06/08/03 Given Ambulat ory Pharmac y typhoid vaccine, parenteral, other than acetone-kille d, dried 0 2002 P8513-5 41 Sanofi Pasteur ([facility]) complet ed typhoid vaccine, parentera l, other than acetone-k illed, dried DoD tuberculin purified protein derivative 2002 DANIELLEAMCNI CHOLS [id number] 96 complet ed Result Comment: Route: Unknown Manufactu rer: [facility] ([facility]) 8344R-4 39 AMDS influenza virus vaccine, whole virus 2001 [id number] 16 [facility] complet ed influenza virus vaccine, whole virus 11/03/02 Given Ambulat ory Pharmac y influenza virus vaccine, whole virus 0 2001 [id number] 16 [facility] ([facility]) complet ed influenza virus vaccine, whole virus DoD influenza virus vaccine, whole virus 2001 [id number] 16 sanofi pasteur complet ed influenza virus vaccine, whole virus 05/05/02 Given Ambulat ory Pharmac y influenza virus vaccine, whole virus 0 2001 [id number] 16 Sanofi Pasteur ([facility]) complet ed influenza virus vaccine, whole virus DoD tuberculin purified protein derivative 2001 DANIELLEAMCNI CHOLS [id number] 96 complet ed Result Comment: Route: Unknown Manufactu rer: [facility] ([facility]) 8344R-4 39 AMDS yellow fever vaccine 2000 [id number] 37 Cardiva [employer] complet ed yellow fever vaccine 03/04/01 Given Ambulat ory Pharmac y yellow fever vaccine 0 2000 [id number] 37 [facility] yellow fever vaccine DoD typhoid vaccine, inactivated 2000 S1204-0 101 sanofi pasteur complet ed typhoid vaccine, inactivat ed 12/03/00 Given Ambulat ory Pharmac y influenza virus vaccine, whole virus 2000 [id number] 16 [employer] complet ed influenza virus vaccine, whole virus 12/03/00 Given Ambulat ory Pharmac y influenza virus vaccine, whole virus 0 2000 [id number] 16 [facility] ([facility]) complet ed influenza virus vaccine, whole virus DoD typhoid vaccine, parenteral, other than acetone-kille d, dried 0 2000 [id number] 41 Sanofi Pasteur ([facility]) complet ed typhoid vaccine, parentera l, other than acetone-k illed, dried DoD hepatitis A adult vaccine 1999 [id number] 52 Merck & Company Inc complet ed hepatitis A adult vaccine 09/10/00 Given Ambulat ory Pharmac y hepatitis B adult vaccine 1999 [id number] 43 Merck & Company Inc complet ed hepatitis B adult vaccine 09/10/00 Given Ambulat ory Pharmac y hepatitis B vaccine, adult dosage 3 1999 [id number] 43 Merck (MSD) complet ed hepatitis B vaccine, adult dosage DoD hepatitis A vaccine, adult dosage 2 1999 1759H 52 Merck (MSD) complet ed hepatitis A vaccine, adult dosage DoD tuberculin purified protein derivative 1999 DANIELLEAMCNI CHOLS [id number] 96 complet ed Result Comment: Route: Unknown Manufactu rer: OT (CON) 8344R-4 39 AMDS HepB, Adult 1999 DANIELLEAMCNI CHOLS [id number] 43 complet ed Result Comment: Route: Unknown Manufactu rer: Merck (MSD) 8344R-4 39 AMDS influenza virus vaccine, whole virus 1998 [id number] 16 Cardiva Medicalt Labs complet ed influenza virus vaccine, whole virus 09/24/99 Given Ambulat ory Pharmac y influenza virus vaccine, whole virus 0 1998 [id number] 16 Harry (CON) complet ed influenza virus vaccine, whole virus DoD hepatitis B adult vaccine 1998 [id number] A2 43 GlaxoSmithKli ne complet ed hepatitis B adult vaccine 08/24/99 Given Ambulat ory Pharmac y hepatitis B vaccine, adult dosage 2 1998 [id number] A2 43 SmithKline (SKB) complet ed hepatitis B vaccine, adult dosage DoD HepB, Adult 1998 DANIELLEAMCNI CHOLS [id number] A2 43 complet ed Result Comment: Route: Unknown Manufactu rer: SmithKlin e (SKB) 8344R-4 39 AMDS hepatitis B adult vaccine 1998 [id number] 43 GlaxoSmithKli ne complet ed hepatitis B adult vaccine 07/10/99 Given Ambulat ory Pharmac y hepatitis B vaccine, adult dosage 1 1998 [id number] 43 SmithKline (SKB) complet ed hepatitis B vaccine, adult dosage DoD HepB, Adult 1998 DANIELLEAMCNI CHOLS [id number] 43 complet ed Result Comment: Route: Unknown Manufactu rer: SmithKlin e (SK) 8344R-4 39 AMDS hepatitis A adult vaccine 1998 [id number] 52 Merck & Company Inc complet ed hepatitis A adult vaccine 05/29/99 Given Ambulat ory Pharmac y poliovirus vaccine, live, oral 1998 [id number] 02 [employer] complet ed polioviru s vaccine, live, oral 05/29/99 Given Ambulat ory Pharmac y measles/mumps /rubella virus vaccine 1998 03 complet ed measles/m umps/rube lla virus vaccine 05/29/99 Given Ambulat ory Pharmac y trivalent poliovirus vaccine, live, oral 0 1998 0797L 02 [facility] ([place]) comple t ed trivalent polioviru s vaccine, live, oral DoD measles, mumps and rubella virus vaccine 0 1998 03 () complet ed measles, mumps and rubella virus vaccine DoD hepatitis A vaccine, adult dosage 1 1998 0886H 52 Merck (MSD) complet ed hepatitis A vaccine, adult dosage DoD influenza virus vaccine, whole virus [id number] 16 [employer] Access complet ed influenza virus vaccine, whole virus 05/22/99 Given Ambulat ory Pharmac y meningococcal polysaccharid e (MPSV4) [id number] [id number] 32 [facility] meningoco ccal polysacch aride (MPSV4) 05/22/99 Given Ambulat ory Pharmac y tetanus-dipht h toxoids (Td) adult/adol 1998 [id number] 09 [facility] complet ed tetanus-d iphth toxoids (Td) adult/ado l 05/22/99 Given Ambulat ory Pharmac y tetanus and diphtheria toxoids, adsorbed, preservative free, for adult use (2 Lf of tetanus toxoid and 2 Lf of diphtheria toxoid) 0 1998 [id number] 09 [facility] (CON) complet ed tetanus and diphtheri a toxoids, adsorbed, preservat keith free, for adult use (2 Lf of tetanus toxoid and 2 Lf of diphtheri a toxoid) DoD influenza virus vaccine, whole virus 0 19985276 [id number] 16 [facility] ([facility]) complet ed influenza virus vaccine, whole virus DoD meningococcal polysaccharid e vaccine (MPSV4) 0 19981699 4304461 32 [facility] (CON) complet ed meningoco ccal polysacch aride [...] Prevention' s HIV diagnostic algorithm. Refer to [facility] Lab Guide for additional information : [email or web address] x Testing performed by [place] [facility] EPILAB Miscellan eous Sendouts Repository Sample Received (06/07/24 1:13 PM) 06/07 Fabio [facility] EP[facility] Encounters Combined list of: 1) Encounters from Department of Veterans Affairs facilities going backup to the last 18 months, not all VA inpatient encounters are included; 2) Encounters from the Department of Defense facilities going backup to 280 months. Location Location Details Encounter Type Encounter Number Reason For Visit Attending Provider ADM Date DC Date Status Disposition Source [employer]([facility]) OUTPATIENT [id number] eval cyst on buttock /see orders/ noc RENETTA FRANCISCO 01/10 Released w/o Limitations [employer]([facility]) [employer]([facility]) OUTPATIENT [id number] JT LENNON 05/23 Released w/o Limitations [employer]([facility]) [employer]([facility]) OUTPATIENT [id number] POST PRIMED VISIT HAYLIE BENAVIDES 07/05 Released w/o Limitations [employer]([facility]) [employer]([facility]) OUTPATIENT [id number] f/u abscess HAYLIE BENAVIDES 07/14 Released w/o Limitations [employer]([facility]) [employer]([facility]) OUTPATIENT [id number] flu symptom s ANNA SHOEMAKER S 10/23 Released with Work/Duty Limitations [employer]([facility]) [employer]([facility]) OUTPATIENT [id number] flu like symptom s ANNA SHOEMAKER S 01/04 Released w/o Limitations [employer]([facility]) [employer]([facility]) OUTPATIENT [id number] routine ROOTJEFERSON Montalvo 05/14 Released w/o Limitations [employer]([facility]) [employer]([facility]) OUTPATIENT [id number] pha/noc /[id number] TIFFANIE PRADHAN 08/19 Released w/o Limitations [employer]([facility]) [employer]([facility]) OUTPATIENT [id number] JOHN CHAN 04/20 Released w/o Limitations [employer]([facility]) [employer](Daryn eficiarie s_Non-AD Only) OUTPATIENT [id number] BALLISTICS EXPERT FORENSIC/ BP MEDICAT ION (LOSART AN) SLOAN JORDAN 06/26 Released w/o Limitations [employer](B enefici aries_N on-AD Only) [employer](Daryn eficiarie s_Non-AD Only) TELE CONSULT [id number] Notes Entered by: SLOAN JORDAN 01 Jul 2015 1212 ------- ------- ------- ------- -- NELDA Taylor 07/01 [employer](B enefici aries_N on-AD Only) [employer](Tro op_AD Only) TELE CONSULT [id number] Notes Entered by: Glen CARRILLO 06 Oct 2015 1025 ------- ------- ------- ------- -- CAC/GS- MED REFILL- ZERO DAYS LEFT RADHA ALEJANDRE 10/06 [employer](T roop_AD Only) [employer](Opt ometry Clinic) TELE CONSULT [id number] Notes Entered by: PATT ANN 22 Jul 2016 0925 ------- ------- ------- ------- -- CAC/KB/ EYE EXAM REFERRA ELENIAT ANDERSON 07/22 [facility](O ptometr y Clinic) [facility](Daryn eficiarie s_Non-AD Only) TELE CONSULT [id number] Notes Entered by: Rosa CARRILLO 22 Sep 2016 1426 ------- ------- ------- ------- -- CAC/DDS RX REFILL SCHUYLER FOSTER 09/22 [facility](B enefici aries_N on-AD Only) [facility](Tro op_AD Only) OUTPATIENT [id number] finger injury MENDOZA MARCOS 09/23 Released w/o Limitations [facility](T roop_AD Only) [facility](Daryn eficiarie s_Non-AD Only) TELE CONSULT [id number] Notes Entered by: RIMA BEEBE 23 Sep 2016 1439 ------- ------- ------- ------- -- Lt 4th digit EDWIN Dee 09/23 [facility](B enefici aries_N on-AD Only) [facility](Tro op_AD Only) TELE CONSULT [id number] Notes Entered by: OFELIA SCOTT 29 Sep 2016 1200 ------- ------- ------- ------- -- NETWORK RESULTS -ORTHOP EDIC- JUSTIN KNOWLES 09/29 [facility](T roop_AD Only) [facility](Daryn eficiarie s_Non-AD Only) OUTPATIENT [id number] r/s f/u bp/labs JANUARY COREA 11/02 Released w/o Limitations [facility](B enefici aries_N on-AD Only) [facility]) OUTPATIENT [id number] [facility] DOREEN GIANG 09/19 Released w/o Limitations [employer](F light Medicin e Clinic) [employer](Fli t Medicine Clinic) OUTPATIENT [id number] Z-PHAQ (non-FL Y) ZINA COSTA 07/27 Released w/o Limitations [employer](F light Medicin e Clinic) [employer](87 Cln Pharm Svcs) OUTPATIENT [id number] Notes Entered by: PARAS MCKEON 25 Aug 2018 1605 ------- ------- ------- ------- -- Rebecca Diazat ALIE Glover 08/25 Released w/o Limitations [employer](8 7 Cln Pharm Svcs) [facility](Tro op_AD Only) TELE CONSULT [id number] Notes Entered by: Glen CARRILLO 18 Jul 2019 1237 ------- ------- ------- ------- -- CAC/GS- RIGHT THUMB NUMBNES S/TINGL ING/RAD IATING UP RIGHT ARM DARLING CUELLO 07/18 [facility](T roop_AD Only) [facility](Tro op_AD Only) OUTPATIENT [id number] right hand numbnes s/tingl ing LINDA SANDOVAL 07/23 Released w/o Limitations [facility](T roop_AD Only) [facility](BOM C 1 Phys Exams) OUTPATIENT [id number] ADELSO CLINE 07/23 Released w/o Limitations [facility](B O[facility] 1 Phys Exams) [facility](Tro op_AD Only) TELE CONSULT [id number] Notes Entered by: MARYJO WILSON 24 Jul 2019 1453 ------- ------- ------- ------- -- CAC/LC/ X-RAY RESULTS / [facility] CLINIC DARLING CUELLO 07/24 [facility](T roop_AD Only) [facility](Tro op_AD Only) OUTPATIENT [id number] SLOAN ANDUJAR 07/31 Released w/o Limitations [facility](T roop_AD Only) [facility](Tro op_AD Only) TELE CONSULT [id number] Notes Entered by: Rosa CARRILLO 31 Jul 2019 1114 ------- ------- ------- ------- -- NETWORK RESULTS OCC THERAPY 019 LINDA SANDOVAL 07/31 Referred for Appointment [facility](T roop_AD Only) [facility](Opt ometry Clinic) TELE CONSULT [id number] Notes Entered by: Jared AGRAWAL 20 Sep 2019 0922 ------- ------- ------- ------- -- Resched [facility] Appoint MIGUEL ÁNGEL Vargas 09/20 [facility](O ptometr y Clinic) [facility](Tro op_AD Only) TELE CONSULT [id number] Notes Entered by: STANLEY TOM 24 Sep 2019 1028 ------- ------- ------- ------- -- Rx refill DARLING CUELLO 09/24 [facility](T roop_AD Only) [facility](Opt ometry Clinic) OUTPATIENT [id number] Routine exam [place] MIGUEL ÁNGEL Barragan 09/24 Released w/o Limitations [facility](O ptometr y Clinic) [facility](Tro op_AD Only) TELE CONSULT [id number] Notes Entered by: LINDA SANDOVAL 27 Sep 2019 0515 ------- ------- ------- ------- -- lab DARLING CUELLO 09/27 [facility](T roop_AD Only) [facility](Tro op_AD Only) OUTPATIENT [id number] F2F/INJ URY/ LOWER BACK PAIN X4MOS SLOAN JORDAN 07/21 Released w/o Limitations [facility](T roop_AD Only) [facility](BOM C 1 Phys Exams) OUTPATIENT [id number] MHA [phone] ARACELI ADELSO B 07/25 Released w/o Limitations [facility](B OMC 1 Phys Exams) [facility](Opt ometry Clinic) OUTPATIENT [id number] Annual Exam ALIE CELIS 08/11 Released w/o Limitations [facility](O ptometr y Clinic) [facility](Tro op_AD Only) OUTPATIENT [id number] Z-PHAQ LINDA SANDOVAL 08/29 Released w/o Limitations [facility](T roop_AD Only) [facility](Tro op_AD Only) TELE CONSULT [id number] Notes Entered by: STANLEY TOM 04 Dec 2020 0859 ------- ------- ------- ------- -- Javed diallo drop off - Covid vaccine form FABIÁN LEWIS 12/04 Advice Assessment [facility](T roop_AD Only) [facility](Tro op_AD Only) TELE CONSULT [id number] Notes Entered by: LEYLA MORA 21 May 2021 144 ------- ------- ------- ------- -- NETWORK RESULTS URGENT CARE 021 SLOAN JORDAN 05/21 [facility](T roop_AD Only) [facility](Opt ometry Clinic) OUTPATIENT [id number] F2F; ROUTINE EYE EXAM ALIE CELIS 08/17 Released w/o Limitations [facility](O ptometr y Clinic) [facility](Tro op_AD Only) OUTPATIENT [id number] Z-PHA NOA SYLVESTER 12/24 Released w/o Limitations [facility](T roop_AD Only) [id number]-[id number] AMDS Between Visit [id number] 06/28 Discharge Disposition: Home or Self Care 8344R-4 39 AMDS 8344R-439 AMDS Between Visit [id number] 06/28 Discharge Disposition: Home or Self Care 8344R-4 39 AMDS 0310C-AF- C[facility] [place] Between Visit [id number] 07/04 Discharge Disposition: Home or Self Care 0310C-A F-C-[facility] [place] 8344R-439 AMDS Between Visit [id number] 07/10 Discharge Disposition: Home or Self Care 8344R-4 39 AMDS 8344R-439 AMDS Between Visit [id number] 07/15 Discharge Disposition: Home or Self Care 8344R-4 39 AMDS Procedures Combined list of: 1) Procedures from Department of Veterans Affairs facilities [facility], not all VA non-surgical procedures are included; 2) All procedures from the Department of Defense facilities. Procedure Procedure Type Code Date Perfomer Comments Sourc e MEDICATION THERAPY MANAGEMENT SERVICE(S) PROVIDED BY A PHARMACIST, INDIVIDUAL, [id number] WITH PATIENT, WITH ASSESSMENT AND INTERVENTION IF PROVIDED; INITIAL 15 MINUTES, ESTABLISHED PATIENT 018 DoD FITTING OF SPECTACLES, EXCEPT FOR APHAKIA; MONOFOCAL 009 DoD IMMUNIZATION ADMINISTRATION (INCLUDES PERCUTANEOUS, INTRADERMAL, SUBCUTANEOUS, OR INTRAMUSCULAR INJECTIONS); 1 VACCINE (SINGLE OR COMBINATION VACCINE/TOXOID) 003 DoD HANDLING AND/OR CONVEYANCE OF SPECIMEN FOR TRANSFER FROM THE OFFICE TO A LABORATORY 002 DoD FITTING OF SPECTACLES, EXCEPT FOR APHAKIA; MONOFOCAL 021 DoD ADMINISTRATION OF PATIENT-FOCUSED HEALTH RISK ASSESSMENT INSTRUMENT (EG, HEALTH HAZARD APPRAISAL) WITH SCORING AND DOCUMENTATION, PER STANDARDIZED INSTRUMENT DoD SCANNING COMPUTERIZED OPHTHALMIC DIAGNOSTIC IMAGING, POSTERIOR SEGMENT, WITH INTERPRETATION AND REPORT, UNILATERAL OR BILATERAL; OPTIC NERVE 020 DoD BRIEF COMM TECH-BASE SERV,E.G. VIRT CHK-IN,BY [...] W/IN THE PREV 7 DAYS,USE THE INTERNET/SIMILAR [place] COMM NETWORK DoD TELE ASSESS & MGT SRV PROV QUAL NONPHYS HLTH CARE PRO TO EST PAT,PARENT,GUARD NOT ORIG REL ASSESS & MGT SRV PROV W/IN PREV 7 DAYS NOR LEAD ASSESS & MGT SRV/PX W/IN NXT 24H/SOON APT; 11-20 MIN MED DIS DoD ADMINISTRATION OF PATIENT-FOCUSED HEALTH RISK ASSESSMENT INSTRUMENT (EG, HEALTH HAZARD APPRAISAL) WITH SCORING AND DOCUMENTATION, PER STANDARDIZED INSTRUMENT DoD BRIEF EMOTIONAL/BEHAVIORA L ASSESSMENT (EG, DEPRESSION INVENTORY, ATTENTION-DEFICIT/H YPERACTIVITY DISORDER [ADHD] SCALE), WITH SCORING AND DOCUMENTATION, PER STANDARDIZED INSTRUMENT DoD TELE ASSESS & MGT SRV PROV QUAL NONPHYS HLTH CARE PRO TO EST PAT,PARENT,GUARD NOT ORIG REL ASSESS & MGT SRV PROV W/IN PREV 7 DAYS NOR LEAD ASSESS & MGT SRV/PX W/IN NXT 24 HR/SOON APT;5-10 MIN MED DIS 10/27/2 016 DoD Determination Of Refractive State Determination Of Refractive State [id number] [id number] MIGUEL ÁNGEL WEN Ophthalmological New Patient Start Comprehensive Care Ophthalmological New Patient Start Comprehensive Care [phone] MIGUEL ÁNGEL WEN [employer] [facility] Fitting Monofocals (Not For Aphakia) [employer] [facility] Fitting Monofocals (Not For Aphakia) [id number] MIGUEL ÁNGEL WEN Request srts record DoD Non-Physician Phone Call To Patient/Provider Brief (5-10min) Non-Physician Phone Call To Patient/Provider Brief (5-10min) [phone] DARLING CUELLO Non-Physician Phone Call To Patient/Provider Brief (5-10min) Non-Physician Phone Call To Patient/Provider Brief (5-10min) [id number] DARLING CUELLO Internet Med Svc Qual Nonphys Healthcare Prof Estab Patient Internet Med Svc Qual Nonphys Healthcare Prof Estab Patient [id number] ADELSO CHARLES DoD Non-Physician Phone Call To Pt/Provider Intermed (11-20 min) Non-Physician Phone Call To Pt/Provider Intermed (11-20 min) [id number] DARLING CUELLO Med Management By Pharmacist Initial 15 Min Estab Patient Med Management By Pharmacist Initial 15 Min Estab Patient [id number] [phone] PARAS MCKEON DoD Non-Physician Phone Call To Patient/Provider Brief (5-10min) Non-Physician Phone Call To Patient/Provider Brief (5-10min) [phone] EDWIN SUERO Ophthalmological New Patient Start Comprehensive Care Ophthalmological New Patient Start Comprehensive Care [id number] Determination Of Refractive State Determination Of Refractive State [address] [employer] [facility] Fitting Monofocals (Not For Aphakia) [facility] [facility] Fitting Monofocals (Not For Aphakia) [address] Brief communication technology-based service, e.g. virtual check-in, [...] available appointment; 5-10 minutes of medical discu roe ARACELI ADELSO B [facility] Ophthalmological Prior Patient Start Comprehensive Care Ophthalmological Prior Patient Start Comprehensive Care 76705 ALIE CELIS Adolfo [facility] Determination Of Refractive State Determination Of Refractive State 82883 CELIS, ALIE Mata [facility] [employer] [facility] Fitting Monofocals (Not For Aphakia) [employer] [facility] Fitting Monofocals (Not For Aphakia) 92977 VIMAL ALIE Mata [facility] Scanning Computerized Ophthalmic Diagnostic Imaging Optic Nerve Scanning Computerized Ophthalmic Diagnostic Imaging Optic Nerve 78756 VIMAL ALIE Mata OCT: RNFL/GCL no thinning OD/OS DoD No data available for this section Ambulato ry Pharmacy Social History Combined list of available smoking, tobacco, and other social history from Department of Defense and Veterans Affairs facilities. Social History Type Response Date Comment Sour e Sex Representation Male (finding) 06/24/2022 Un known Organization This section is an empty social history section. [facility] Sexual Orientation Ambula tory Pharmacy Gender identity Ambulator y Pharmacy Assessment and Plan Combined list of future care activities from Department of Defense and Veterans Affairs facilities (e.g., assessment and plan notes, appointments, orders, and referrals). Additional future care activities may be listed in the Plan of Care section. Result Assessment and Plan Date Source Assessment and Plan Extracted from:Title : DD Form 2813 - SMSgt [place]i ([id number]) Author: JUVE LOCKETT Date: 03/29/25 Entered by JUVE LOCKETT on March 29, 2025 10:06:20 EDT Received D D Form 2813 for patient and updated in CDA / CDS. Please allow for 24 - 48 hours to reflect in ASIMS and allow patient s IMR to reflect current. From: Ganga Cali To: [facility] 439 AMDS Readiness Sent: 03/28/2025 11:19 a.m. PDT Subject: DD Form 2813 - [facility] [place] ([id number]) Please see the attached DD Form 2813 [...] OD Date: 07/25/23 1. 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 H yperopia of both eyes Low Rx, order readers. No path with dilated eye exam. Noted small area of CR atrophic changes at 2 in OS. No Tx f/u 2 years. Noted increased CD ratio with normal OCT. No Tx but monitor in two years. 07/26/2025 8344R-439 AMDS Assessment and Plan Extracted from:Title : DD Form 2813 - SMSgt Viraj ([id number]) Author: JUVE LOCKETT Date: 03/29/25 Entered by JUVE LOCKETT on March 29, 2025 10:06:20 EDT Received D D Form 2813 for patient and updated in CDA / CDS. Please allow for 24 - 48 hours to reflect in ASIMS and allow patient s IMR to reflect current. From: Ganga Cali To: [facility] 439 AMDS Readiness Sent: 03/28/2025 11:19 a.m. PDT Subject: DD Form 2813 - SMSgt Viraj ([id number]) Please see the attached DD Form 2813 [...] OD Date: 07/25/23 1. 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 H yperopia of both eyes Low Rx, order readers. No path with dilated eye exam. Noted small area of CR atrophic changes at 2 in OS. No Tx f/u 2 years. Noted increased CD ratio with normal OCT. No Tx but monitor in two years. 07/26/2025 [id number] Functional Status Combined list of recent functional and cognitive assessments recorded at Department of Defense and Veterans Affairs (VA).VA Functional [place] Measurement (FIM) Scale: 1 = Total Assistance (Subject = 0% +), 2 = Maximal Assistance (Subject = 25% +), 3 = Moderate Assistance (Subject = 50% +), 4 = Minimal Assistance (Subject = 75% +), 5 = Supervision, 6 = Modified [place] (Device), 7 = Complete [place] (Timely, Safely). Assessment Date/Time Source Assessment Type Assessment Skill Assessment Score Assessment Details No data available for this section
--- OUTSIDE RECORDS SUMMARY | 2025-07-26 12:29 | XMS_ITS | Clinical Summary ---
Author Organization [address] Address [address] [place] [address] Care Team Providers Care Linux Admin Name Role Phone Torey Cabrera MD Primary Care Provider [phone] Allergies Active Allergy Reactions Criticality Noted Date [...] on patient's age to complete this topic Meningococcal B Vaccine Aged Out No l onger eligible based on patient's age to complete this topic Pneumococcal Vaccine (2 - 49 years) Aged Out No longer eligible based on patient's age to complete this topic [place] [address] [place] [address] Member Subscriber Plan / Payer (Ef fective 2022-Present) Name:Cely Calinte Dino Relation to Subscriber:Self Name:Ganga Cali Payer ID:[id number] Group ID:Not on file Type:Not on file Address: [place] [id number] Member Subscriber Plan / Payer (Ef fective 2022-Present) Name:Cely Claintgenoveva RestrepoDino Relation to Subscriber:Self Name:Cely Calintgenoveva RestrepoDino Payer ID:[id number] Group ID:Not on file Type:Not on file Address: [place] [id number] Care Teams Linux Admin Relationship Specialty Start Date End Date Torey Cabrera MD [address] [place] [phone] PCP - General Family Medicine 11/23/24
--- OUTSIDE RECORDS SUMMARY | 2025-07-26 12:29 | XMS_ITS | Patient Health Record ---
Author Organization [facility] Address [address] [place] [address] Care Team Providers Care Correctional Casework Specialist Name Role Phone Slava James Primary Care Provider UnavailKd De La Torre Unavailable [phone] [employer] MARKETING CONSULTANT C, Aleisha Unavailable Unavailable Migration, Provider Unavailable Unavailable Allergies No Known Allergies Reason For Referral No Information Medications Medication SIG (Take, Route, Frequency, Duration) Notes Start Date End Date Status Ultram 50 mg/Tramadol HCL 1 tablet(s) PRN PAIN by mouth TID *Reorder from [employer] for eRx and Interaction Alerts* 09/23/2016 Active Losartan Potassium 50 MG Tablet Oral QD (Daily) Active Problems Problem Type SNOMED Code ICD Code Onset Dates Problem Status W/U Status Risk Notes Problem Essential hypertension (69551179) Unspecified essential hypertension (401.9) 6 Active confirmed Encounters Encounter Location Date Provider Diagnosis [facility] [address] [place] [address] 06/22/[address] [facility] [address] [place] [address] [address] [place] [address] 06/23/2025 Provider Migration Plan Of Treatment No Information
[2025-07-26 15:01] LABS: Alanine Aminotransferase 61 U/L (0-40); Albumin Level 4.8 g/dL (3.5-5.0); Alkaline Phosphatase 52 U/L (39-117); Anion Gap 12 (12-20); Aspartate Amino Transferase 28 U/L (5-37); Blood Urea Nitrogen 19 mg/dL (9-16); Calcium 9.9 mg/dL (8.4-10.2); Carbon Dioxide 27 mmol/L (22-29); Chloride 106 mmol/L (96-108); Cholesterol 164 mg/dL (<200); Estimated Glomerular Filt Rate 51; HDL Cholesterol 44 mg/dL (>40); Potassium 4.1 mmol/L (3.3-5.1); Sodium 141 mmol/L (135-145); Total Protein 7.7 g/dL (6.5-8.0); Triglycerides 66 mg/dL (<150)
[2025-07-26 15:26] LABS: Hemoglobin A1C 149.6175 umol/L; Total Hemoglobin (HGBA1C) 3990.8167 umol/L
== END 2025-07-26 11:28 | disposition home or self-care (01) ==
LOC: HO.WFDLDS 11:27
PROVIDERS: Visit Provider Family Medicine
DX: Z00.00 Encounter for general adult medical examination without abnormal findings (principal); E78.6 Lipoprotein deficiency; R73.01 Impaired fasting glucose
CPT/HCPCS: 36415; 80053; 80061; 83036

== ENCOUNTER 2025-07-30 16:05 | Outpatient (AMB) | payer OTHER, SELFPAY ==
--- NOTE | 2025-07-30 16:12 | A.OFFPC_ITS ---
Vital Signs 07/30/25 16:16 Height 6 ft 1 in Weight 192 lb BMI 25.3 BP 132/74 Blood Pressure Location Rt brachial Position Sitting Respiration 12 Pulse 89 Pulse Source Pulse Oximeter Temp 97.2 F Temp Source Oral Pulse Oximetry (%) 99 Oxygen Delivery Method Room Air Intake Visit Reasons: f/u creatinine level, lipids, chronic conditions Intake Note: Follow up to review labs. Patient needs refill on meds. Chancellor Required: No Allergies naproxen Allergy (Mild, Verified 07/30/25 16:12) Rash Medication List - Last Reconciled 07/30/25 by Torey Cabrera MD adapalene 0.1% (Differin) 1 appl topical BEDTIME PRN amlodipine 7.5 mg (1.5 x 5 mg) PO QPM 90 days cetirizine 10 mg PO DAILY PRN 30 days clotrimazole-betamethasone 1-0.05 % 1 appl topical BID 2 weeks fluticasone propionate 50 mcg/actuation (Flonase Allergy Relief) 1 spray intranasal Q12H 30 days losartan 50 mg PO QPM 90 days montelukast 10 mg PO QPM PRN Tobacco use date assessed: 07/30/25 Dental Screening Dental Screen Date: 07/30/25 Did you have a dental visit in the last 12 months?: Yes Did you have a dental problem in the last 6 months where you did not have access to dental care?: No Was dental information given to patient?: Patient has dentist HPI f/u creatinine level, lipids, chronic conditions HPI Details 44 y/o male presents to f/u HTN, elevate d creatinine levels. Also f/u on mild lipid elevation and mild elevated FBS. Labs drawn 07/26/25. Reviewed labs with pt. Creatinine level 1.50 mg/dL. A1c 5.6%. ALT worsened from 54 to 61. Triglycerides 66. TC 164. LDL 107. HDL 44. BP today 132/74, 89p. He is on amlodipine 7.5mg, losartan 50mg daily. HPI Comments History of Present Illness Details Documentation assistance for Torey Cabrera MD, was provided by Tho Okeefe,? Senior Environmental Scientist on 07/30/2025 at 5:16 PM EST. I, Dr. Cabrera, have read, observed, and verified documentation. [facility] Medical History (Updated 07/30/25 @ 17:17 by Torey Cabrera MD) Hemangioma Renal cyst Cervical radiculitis Allergies High blood pressure Surgical History (Updated 07/30/25 @ 16:16 by Kimberley Mills MA) H/O vasectomy (~2016) Hx of left inguinal hernia repair (06/24/25) History of cervical discectomy Hx of wisdom tooth extraction Family History Father High blood pressure High cholesterol Mother High blood pressure High cholesterol Maternal Grandmother High blood pressure High cholesterol Diabetes Paternal Grandfather Diabetes High blood pressure High cholesterol Paternal Grandmother Diabetes High blood pressure High cholesterol Other No family history of mental disorder Social History Housing: Apartment Are you a primary healthcare facility administrator to a significant other at home: No Do you presently have visiting nurse or other home services: No Patient Tobacco Use Status: Never used Tobacco e-Cigarette/Vaping Use: Never Used Second Hand Smoke Exposure: No service: Yes 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 1. Little interest or pleasure in doing things: not at all 2. Feeling down, depressed, or hopeless: not at all 3. Trouble falling or staying asleep, or sleeping too much: not at all 4. Feeling tired or having little energy: not at all 5. Poor appetite or overeating: not at all 6. Feeling bad about yourself - or that you are a failure or have let yourself or your family down: not at all 7. Trouble concentrating on things, such as reading the newspaper or watching television: not at all 8. Moving or speaking so slowly that other people could have noticed. Or the opposite - being so fidgety or restless that you have been moving around a lot more than usual: not at all 9. Thoughts that you would be better off or of hurting yourself in some way: not at all Total score: 0 Depression Screening Interpretation: Negative Depression Screening Done: Yes 13340 - PHQ-9 Billing: Yes Source: Developed by Drs. Olu Jerze, Tonya Duron, Rod Chen and colleagues, with an educational beba from [employer]. Thrive Questionnaire Date Thrive assessed: 07/30/25 I am a: Patient What is your living situation today?: I have a steady place to live Within the past 12 months, did the food you bought not last and you didn't have the money to get more?: Never true Within the past 12 months, did you worry whether your food would run out before you got money to buy more?: Never true Do you have trouble paying for medicines?: No Do you have trouble getting transportation to medical appointments?: No Do you have trouble paying your heating and electricity bill?: No Do you have trouble taking care of your child, family member or friend?: No Do you have trouble with day-to-day activities such as bathing, preparing meals, shopping, managing finances, etc.?: No Are you currently unemployed and looking for a job?: No Are you interested in more education?: No Please select the resources that you would like help with: None Currently or been in a relationship where the following occur: No concerns reported THRIVE Score: 0 NELLI-7 AMB Questionnaire NELLI-7 Date NELLI - 7 assessed: 07/30/25 Feeling nervous, anxious, or on edge: 0 = Not at all Not being able to stop or control worryin = Not at all Worrying too much about different things: 0 = Not at all Trouble relaxin = Not at all Being so restless that it is hard to sit still: 0 = Not at all Becoming easily annoyed or irritable: 0 = Not at all Feeling afraid as if something awful might happen: 0 = Not at all Total NELLI-7 score (0-4 normal; 5-9 mild; 10-14 moderate; 15-21 severe): 0 Source: Developed by Drs. Olu Jerez, Tonya Duron, Rod Chen and colleagues, with an educational beba from [employer]. NELLI-7 Assessment Billing NELLI-7 Assessment Tool: NELLI-7 Assessment 15951 Review of Systems Const Denies chills, Denies fatigue, Denies fever(s), Denies headache(s) and Denies weakness ENT Denies dizziness and Denies headache(s) Card Denies dyspnea Resp Denies cough, Denies dyspnea, Denies wheezing and Denies other (shortness of breath) Musc Denies numbness and Denies tingling Neuro Denies dizziness, Denies headache(s), Denies numbness, Denies tingling and Denies weakness Psych Denies anxiety and Denies depression Endo Denies fatigue Aller/Immun Denies wheezing Physical exam (Primary Care) Vital Signs: Last Vital Signs Temp 97.2 F 07/30/25 16:16 Pulse 89 07/30/25 16:16 Resp 12 07/30/25 16:16 BP 132/74 07/30/25 16:16 Pulse Ox 99 07/30/25 16:16 Oxygen Delivery Method Room Air 07/30/25 16:16 BMI result Body Mass Index 25.3 Tobacco/Smoking Status: Tobacco use Status Tobacco use date assessed 07/30/25 07/30/25 16:18 Patient Tobacco Use Status Never used Tobacco 07/30/25 16:18 e-Cigarette/Vaping Use Never Used 07/30/25 16:18 PHQ-9: PHQ-9 Score PHQ-9: Total score 0 07/30/25 17:07 Depression Screening Interpretation: Negative Thrive Assessment: Date of Thrive Assessment Date Thrive assessed 07/30/25 07/30/25 16:18 Currently or been in a relationship where the following occur: No concerns reported Const General: well developed; No acute distress Nutritional Appearance: well nourished Orientation/consciousness: patient oriented x3 HENMT Head: Yes normocephalic and Yes atraumatic Eyes General: appearance normal, both eyes and all related structures Pupils: Equal, round and reactive pupils present EOM: EOMs intact bilaterally Resp Effort & Inspection: normal respiratory effort Neuro General: patient oriented x3 and gait normal Cranial nerves: Yes Equal, round and reactive pupils present Psych Affect: normal affect Coding Level of Care Code Est Pt Level 4 (67655) Diagnoses Hypertension I10 Elevated liver enzymes R74.8 Elevated fasting blood sugar R73.01 Elevated LDL cholesterol level E78.00 CKD (chronic kidney disease) N18.9 Additional Codes NELLI-7 Assessment Billing - NELLI-7 Assessment Tool: NELLI-7 Assessment 54885 ([id number]) PHQ-9 - 75468 - PHQ-9 Billing: Yes ([id number]) Assessment & Plan Assessment & Plan (1) Hypertension: Code(s): I10 - Essential (primary) hypertension Category: Medical Plan: Blood pressure is controlled. Goal is less than 140/90 Continue current medications Continue weight control, exercise and salt/sodium avoidance Will continue to monitor (2) Elevated liver enzymes: Code(s): R74.8 - Abnormal levels of other serum enzymes Category: Medical Plan: History of hemangioma seen on ultrasound in 2022 If liver enzymes continue to climb, will recheck this (3) Elevated fasting blood sugar: Code(s): R73.01 - Impaired fasting glucose Category: Medical Plan: Continue working at a diet lower in sugars and starches (4) Elevated LDL cholesterol level: Code(s): E78.00 - Pure hypercholesterolemia, unspecified Category: Medical Plan: LDL mildly increased Work on diet lower in saturated fats and cholesterol (5) CKD (chronic kidney disease): Code(s): N18.9 - Chronic kidney disease, unspecified Category: Medical Plan: GFR slightly lower with creatinine 1.5 Will have him see Nephrology Orders: Referrals Nephrology Referral N18.9 - Chronic kidney disease, unspecified Medications: Refilled clotrimazole-betamethasone 1-0.05 % 1 appl topical BID 45 grams 1RF 2 weeks
[2025-07-30 16:16] VITALS: BP 132/74; PULSE 89; RESP 12; TEMP 36.2; O2SAT 99; BMI 25.3
--- OUTSIDE RECORDS SUMMARY | 2025-07-30 16:48 | XMS_ITS | Continuity of Care Document ---
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 It does not include entries that were removed or entered in error. 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 complet ed SARS-CoV- 2 (COVID-19 ) mRNA-Biva [...] AMDS SARS-CoV-2 (COVID-19) mRNA-Bivalent 2021 DANIELLEAMCNI CHOLS [id number] complet ed Result Comment: Route: Unknown Manufactu rer: OTH (MOD) 8344R-4 39 AMDS influenza, injectable, quadrivalent- pf 2020 [id number] 150 GlaxoSmithKli ne complet ed influenza , injectabl e, quadrival ent-pf 08/17/21 Given Ambulat ory Pharmac y Influenza, injectable, quadrivalent, preservative free 1 2020 [id number] 150 [facility] (SKB) complet ed Influenza , injectabl e, quadrival ent, preservat keith free DoD COVID Vaccine Moderna 03/17/ 2021 [id number] complet ed COVID Vaccine Moderna 02/11/21 Given Ambulat ory Pharmac y SARS-COV-2 (COVID-19) vaccine, mRNA, spike protein, LNP, preservative free, 100 mcg or 50 mcg dose 2 2020 [id number] 207 Moderna [employer] Inc. (MOD) complet ed SARS-COV- 2 (COVID-19 ) vaccine, mRNA, spike protein, LNP, preservat keith free, 100 mcg or 50 mcg dose DoD COVID Vaccine Moderna 2020 [id number] complet ed COVID Vaccine Moderna 01/07/21 Given Ambulat ory Pharmac y SARS-COV-2 (COVID-19) vaccine, mRNA, spike protein, LNP, preservative free, 100 mcg or 50 mcg dose 1 2020 [id number] 207 Moderna [employer] (MOD) complet ed SARS-COV- 2 (COVID-19 ) vaccine, mRNA, spike protein, LNP, preservat keith free, 100 mcg or 50 mcg dose DoD influenza, injectable, quadrivalent 2019 [id number] 158 Seqirus complet ed influenza , injectabl e, quadrival ent 09/11/20 Given Ambulat ory Pharmac y influenza, injectable, quadrivalent, contains preservative 1 2019 [id number] 158 Seqirus (SEQ) complet ed influenza , injectabl e, quadrival ent, contains preservat keith DoD influenza, injectable, quadrivalent- pf 2018 150 complet ed influenza , injectabl e, quadrival ent-pf 09/11/19 Given Ambulat ory Pharmac y INFLUENZA, INJECTABLE, QUADRIVALENT 2018 158 complet ed HISTORICA L INFORMATI ON - FROM OTHER PROVIDER, Partner: [facility]. Administe red by: RADHA BROWN (MTC=[phone]). Partner 46 Lot#: [id number] Mfr: SEQIRUS; Dosage: 0.5 [facility] Influenza, injectable, quadrivalent, preservative free 0 2018 [...] DoD Influenza, inj, MDCK, quadrivalent- pf 2016 [id number] 171 Seqirus complet ed Influenza , inj, MDCK, quadrival ent-pf 09/28/17 Given Ambulat ory Pharmac y Influenza, injectable, Madin Cullman Canine Kidney, preservative free, quadrivalent 20 2016 [id number] 171 Seqirus (SEQ) comple t ed Influenza [...] keith free DoD Influenza, injectable, MDCK-pf 2013 [id number] 153 Novartis Pharmaceutica ls complet ed Influenza , injectabl e, MDCK-pf 09/14/14 Given Ambulat ory Pharmac y Influenza, injectable, Madin Cullman Canine Kidney, preservative free 17 2013 [id number] 153 Novartis BioAnalytixtica l Bulmaro. (NOV) complet ed Influenza , injectabl e, Madin Michelle Canine Kidney, preservat keith free DoD influenza, seasonal, injectable-pf 2012 [id number] 140 sanofi pasteur complet ed influenza , seasonal, injectabl e-pf 08/18/13 Given Ambulat ory Pharmac y Influenza, seasonal, injectable, preservative free 16 2012 [id number] 140 Sanofi Pasteur (PMC) complet ed Influenza , seasonal, injectabl e, preservat keith free DoD influenza, seasonal, injectable-pf 2011 [id number] 140 CSL Behring complet ed influenza , seasonal, injectabl e-pf 09/09/12 Given Ambulat ory Pharmac y Influenza, seasonal, injectable, preservative free 15 2011 [id number] 140 CSL Biotherapies, Inc. (CSL) complet ed Influenza , seasonal, injectabl e, preservat keith free DoD influenza virus vaccine, live 2010 [id number] 111 Atara [employer]otherapeutics Inc comple t ed influenza virus vaccine, live 08/28/11 Given Ambulat ory Pharmac y influenza virus vaccine, live, attenuated, for intranasal use 14 2010 [id number] 111 MedImmRiGHT BRAiN MEDiA, Inc. (MED) complet ed influenza virus vaccine, live, attenuate d, for intranasa l use DoD influenza virus vaccine,split 2009 [id number] 15 CSL Behring complet ed influenza virus vaccine,s plit 09/18/10 Given Ambulat ory Pharmac y influenza virus vaccine, split virus (incl. purified surface antigen)-reti red CODE 1 2009 [id number] 15 CSL [employer]otherapies, Inc. (CSL) complet ed influenza virus vaccine, split virus (incl. purified surface antigen)- retired CODE DoD Novel influenza-H1N 1-09, injectable 2008 127 Novartis Pharmaceutica ls complet ed Novel influenza -[id number], injectabl e 11/12/09 Given Ambulat ory Pharmac y Novel influenza-H1N 1-09, injectable 1 2008 127 Novartis Pharmaceutica l Bulmaro. (NOV) complet ed Novel influenza -[id number], injectabl e DoD influenza virus vaccine,split 2008 [id number] [id number] 15 CSL Behring complet ed influenza virus vaccine,s plit 08/30/09 Given Ambulat ory Pharmac y influenza virus vaccine, split virus (incl. purified surface antigen)-reti red CODE 1 2008 [id number] [id number] 15 CSNovint Technologiesherapies, Inc. (CSL) complet ed influenza virus vaccine, split virus (incl. purified surface antigen)- retired CODE DoD influenza virus vaccine,split 2007 [id number] [id number] 15 CSL Behring complet ed influenza virus vaccine,s plit 09/02/08 Given Ambulat ory Pharmac y anthrax vaccine 2007 [id number] 24 Emergent Biosolutions complet ed anthrax vaccine 09/02/08 Given Ambulat ory Pharmac y influenza virus vaccine, split virus (incl. purified surface antigen)-reti red CODE 1 2007 [id number] [id number] 15 [employer]SharedReviews, Inc. (CSL) complet ed influenza virus vaccine, split virus (incl. purified surface antigen)- retired CODE DoD anthrax vaccine 5 2007 [id number] 24 Emergent [employer] [place] ([facility]) complet ed anthrax vaccine DoD tetanus, diphtheria, acellular pertu is 2007 [id number] 115 sanofi pasteur complet ed tetanus, diphtheri a, acellular pertussis 06/06/08 Given Ambulat ory Pharmac y measles/mumps /rubella virus vaccine 2007 [id number] 03 sanofi pasteur complet ed measles/m umps/rube lla virus vaccine 06/06/08 Given Ambulat ory Pharmac y measles, mumps and rubella virus vaccine 1 2007 [id number] 03 Sanofi Pasteur ([facility]) complet ed measles, mumps and rubella virus vaccine DoD tetanus toxoid, reduced diphtheria toxoid, and acellular pertu is vaccine, adsorbed 1 2007 [id number] 115 Sanofi Pasteur ([facility]) complet ed tetanus toxoid, reduced diphtheri a toxoid, and acellular pertussis vaccine, adsorbed DoD influenza virus vaccine,split 2006 [id number] 15 GlaxoSmithKli ma complet ed influenza virus vaccine,s plit 09/10/07 Given Ambulat ory Pharmac y influenza virus vaccine, split virus (incl. purified surface antigen)-reti red CODE 1 2006 [id number] 15 [facility] ([facility]) complet ed influenza virus vaccine, split virus (incl. purified surface antigen)- retired CODE DoD typhoid vaccine, inactivated 2006 [id number] 101 sanofi pasteur complet ed typhoid vaccine, inactivat ed 08/21/07 Given Ambulat ory Pharmac y typhoid vaccine, parenteral, other than acetone-kille d, dried 0 2006 [id number] 41 Sanofi Pasteur ([facility]) complet ed typhoid vaccine, parentera l, other than acetone-k illed, dried DoD influenza virus vaccine,split 2005 [id number] 15 sanofi pasteur complet ed influenza virus vaccine,s plit 10/26/06 Given Ambulat ory Pharmac y influenza virus vaccine, split virus (incl. purified surface antigen)-reti red CODE 1 2005 [id number] 15 Sanofi Pasteur ([facility]) complet ed influenza virus vaccine, split virus (incl. purified surface antigen)- retired CODE DoD influenza virus vaccine,split 2004 [id number] 15 [facility] complet ed influenza virus vaccine,s plit 10/02/05 Given Ambulat ory Pharmac y influenza virus vaccine, split virus (incl. purified surface antigen)-reti red CODE 0 2004 [id number] 15 Sanchez (AB) complet ed influenza virus [...] DoD influenza virus vaccine, whole virus 2003 [id number] 16 [facility] ed influenza virus vaccine, whole virus 10/03/04 Given Ambulat ory Pharmac y influenza virus vaccine, whole virus 0 2003 [id number] 16 [employer] ls (PWJ) complet ed influenza virus vaccine, whole virus DoD meningococcal polysaccharid e (MPSV4) 2003 [id number] 32 [facility] complet ed meningoco ccal polysacch aride (MPSV4) 05/26/04 Given Ambulat ory Pharmac y meningococcal polysaccharid e vaccine (MPSV4) 0 2003 [id number] 32 [facility] (CON) complet ed meningoco ccal polysacch aride vaccine (MPSV4) DoD varicella virus vaccine 0 2003 21 () Not Given varicella virus vaccine DoD anthrax vaccine 2003 [id number] 24 [employer] complet ed anthrax vaccine 04/20/04 Given Ambulat ory Pharmac y anthrax vaccine 4 2003 [id number] 24 [employer] ([facility]) complet ed anthrax vaccine DoD vaccinia (smallpox) vaccine 2002 [id number] 75 [facility] complet ed vaccinia (smallpox ) vaccine 10/07/03 Given Ambulat ory Pharmac y vaccinia (smallpox) vaccine 0 2002 [id number] 75 [facility] ([facility]) complet ed vaccinia (smallpox ) vaccine DoD anthrax vaccine 2002 [id number] 24 [employer] complet ed anthrax vaccine 10/04/03 Given Ambulat ory Pharmac y anthrax vaccine 3 2002 [id number] 24 [employer] ([facility]) complet ed anthrax vaccine DoD influenza virus vaccine, whole virus 2002 [id number] 16 Novartis Pharmaceutica ls complet ed influenza virus vaccine, whole virus 09/28/03 Given Ambulat ory Pharmac y influenza virus vaccine, whole virus 0 2002 [id number] 16 José Luis ([place]) complet ed influenza virus vaccine, whole virus DoD anthrax vaccine 2002 [id number] 24 [employer] complet ed anthrax vaccine 09/16/03 Given Ambulat ory Pharmac y anthrax vaccine 2 2002 [id number] 24 [employer] ([facility]) complet ed anthrax vaccine DoD anthrax vaccine 2002 [id number] 24 [employer] complet ed anthrax vaccine 08/31/03 Given Ambulat ory Pharmac y anthrax vaccine 1 2002 [id number] 24 [employer] ([facility]) complet ed anthrax vaccine DoD typhoid vaccine, inactivated 2002 [id number] 101 sanofi pasteur complet ed typhoid vaccine, inactivat ed 06/08/03 Given Ambulat ory Pharmac y tuberculin purified protein derivative 2002 DANIELLEAMCNI CHOLS [id number] 96 complet ed Result Comment: Route: Unknown Manufactu rer: [facility] ([facility]) 8344R-4 39 AMDS typhoid vaccine, parenteral, other than acetone-kille d, dried 0 2002 [id number] 41 Sanofi Pasteur ([facility]) complet ed typhoid vaccine, parentera l, other than acetone-k illed, dried DoD influenza virus vaccine, whole virus 2001 [id number] 16 [employer] complet ed influenza virus vaccine, whole virus 11/03/02 Given Ambulat ory Pharmac y influenza virus vaccine, whole virus 0 2001 [id number] 16 [facility] complet ed influenza virus vaccine, whole virus DoD influenza virus vaccine, whole virus 2001 [id number] 16 sanofi pasteur complet ed influenza virus vaccine, whole virus 05/05/02 Given Ambulat ory Pharmac y tuberculin purified protein derivative 2001 DANIELLEAMCNI CHOLS [id number] 96 complet ed Result Comment: Route: Unknown Manufactu rer: [facility] ([facility]) 8344R-4 39 AMDS influenza virus vaccine, whole virus 0 2001 [id number] 16 Sanofi Pasteur ([facility]) complet ed influenza virus vaccine, whole virus DoD yellow fever vaccine 2000 [id number] 37 [facility] complet ed yellow fever vaccine 03/04/01 Given Ambulat ory Pharmac y yellow fever vaccine 0 2000 [id number] 37 [place] (CON) complet ed yellow fever vaccine DoD typhoid vaccine, inactivated 2000 Z2459-6 101 sanofi pasteur complet ed typhoid vaccine, inactivat ed 12/03/00 Given Ambulat ory Pharmac y influenza virus vaccine, whole virus 2000 [id number] 16 [employer] complet ed influenza virus vaccine, whole virus 12/03/00 Given Ambulat ory Pharmac y influenza virus vaccine, whole virus 0 2000 [id number] 16 [facility] complet ed influenza virus vaccine, whole virus DoD typhoid vaccine, parenteral, other than acetone-kille d, dried 0 2000 T2989-7 41 Sanofi Pasteur ([facility]) complet ed typhoid vaccine, parentera [...] tuberculin purified protein derivative 1999 DANIELLEAMCNI CHOLS [id number] 96 complet ed Result Comment: Route: Unknown Manufactu rer: [facility] (CON) 8344R-4 39 AMDS HepB, Adult 1999 [...] DoD influenza virus vaccine, whole virus 1998 [id number] 16 [facility] complet ed influenza virus vaccine, whole virus 09/24/99 Given Ambulat ory Pharmac y influenza virus vaccine, whole virus 0 1998 [id number] 16 [place] (CON) complet ed influenza virus vaccine, whole virus DoD hepatitis B adult vaccine 1998 [id number] A2 43 GlaxoSmithKli ne complet ed hepatitis B adult vaccine 08/24/99 Given Ambulat ory Pharmac y HepB, Adult 1998 DANIELLEAMCNI CHOLS [id number] A2 43 complet ed Result Comment: Route: Unknown Manufactu rer: SmithK[employer] e ([facility]) 8344R-4 39 AMDS hepatitis B vaccine, adult dosage 2 1998 [id number] A2 43 [employer]Kline ([facility]) complet ed hepatitis B vaccine, adult dosage DoD hepatitis B adult vaccine 1998 [id number] 43 GlaxoSmithKli ne complet ed hepatitis B adult vaccine 07/10/99 Given Ambulat ory Pharmac y HepB, Adult 1998 MALIHA PEÑA [id number] 43 complet ed Result Comment: Route: Unknown Manufactu rer: S[employer] ([facility]) 8344R-4 39 AMDS hepatitis B vaccine, adult dosage 1 1998 [id number] 43 SmithKline ([facility]) complet ed hepatitis B vaccine, adult dosage DoD hepatitis A adult vaccine 1998 [id number] 52 Merck & Company Inc complet ed hepatitis A adult vaccine 05/29/99 Given Ambulat ory Pharmac y poliovirus vaccine, live, oral 1998 [id number] 02 [facility] polioviru s vaccine, live, oral 05/29/99 Given Ambulat ory Pharmac y measles/mumps /rubella virus vaccine 1998 03 complet ed measles/m umps/rube lla virus vaccine 05/29/99 Given Ambulat ory Pharmac y trivalent poliovirus vaccine, live, oral 0 1998 [id number] 02 [facility] ([facility]) comple t ed trivalent polioviru s vaccine, live, oral DoD measles, mumps and rubella virus vaccine 0 1998 03 () complet ed measles, mumps and rubella virus vaccine DoD hepatitis A vaccine, adult dosage 1 1998 [id number] 52 Merck (MSD) complet ed hepatitis A vaccine, adult dosage DoD influenza virus vaccine, whole virus [id number] 16 [employer] complet ed influenza virus vaccine, whole virus 05/22/99 Given Ambulat ory Pharmac y meningococcal polysaccharid e (MPSV4) [id number] [facility] meningoco ccal polysacch aride (MPSV4) 05/22/99 Given Ambulat ory Pharmac y tetanus-dipht h toxoids (Td) adult/adol 1998 [id number] 09 [facility] complet ed tetanus-d iphth toxoids (Td) adult/ado l 05/22/99 Given Ambulat ory Pharmac y tetanus and diphtheria toxoids, adsorbed, preservative free, for adult use (2 Lf of tetanus toxoid and 2 Lf of diphtheria toxoid) 0 1998 [id number] 09 [place] (CON) complet ed tetanus and diphtheri a toxoids, adsorbed, preservat keith free, for adult use (2 Lf of tetanus toxoid and 2 Lf of diphtheri a toxoid) DoD influenza virus vaccine, whole virus 0 19984456 [id number] 16 [employer] ([facility]) complet ed influenza virus vaccine, whole virus DoD meningococcal polysaccharid e vaccine (MPSV4) 0 19985757 [id number] 32 [place] (CON) complet ed meningoco ccal [...] Prevention' s HIV diagnostic algorithm. Refer to [facility] Lab Guide for additional information : [email or web address]/ [email or web address] ab/[email or web address]/la [email or web address] x Testing performed by [employer] [facility]. 5600[facility]U [facility] EPIL[facility] Miscellan eous Sendouts Repository Sample Received (06/07/24 1:13 PM) 06/07 N [facility] Encounters Combined list of: 1) Encounters from Department of Veterans Affairs facilities going backup to the last 18 months, not all VA inpatient encounters are included; 2) Encounters from the Department of Defense facilities going backup to 280 months. Location Location Details Encounter Type Encounter Number Reason For Visit Attending Provider ADM Date DC Date Status Disposition Source [employer]) OUTPATIENT [id number] eval cyst on buttock /see orders/ noc RENETTA FRANCISCO 01/10 Released w/o Limitations [employer] [facility] [employer]([facility]) OUTPATIENT [id number] JT LENNON 05/23 Released w/o Limitations [employer] [employer] OUTPATIENT [id number] POST PRIMED VISIT HAYLIE BENAVIDES 07/05 Released w/o Limitations [employer] [facility] [employer] OUTPATIENT [id number] f/u abscess HAYLIE BENAVIDES 07/14 Released w/o Limitations [employer] [facility] [employer]) OUTPATIENT [id number] flu symptom s ANNA SHOEMAKER S 10/23 Released with Work/Duty Limitations [employer] [facility] [employer]) OUTPATIENT [id number] flu like symptom s ANNA SHOEMAKER S 01/04 Released w/o Limitations [employer] [facility] [employer] [facility] OUTPATIENT [id number] routine JEFERSON ROOT 05/14 Released w/o Limitations [employer] [employer]([facility]) OUTPATIENT [id number] pha/noc /[id number] TIFFANIE PRADHAN 08/19 Released w/o Limitations [employer]([facility]) [employer]([facility]) OUTPATIENT [id number] JOHN CHAN 04/20 Released w/o Limitations [employer]([facility]) [employer](Daryn eficiarie s_Non-AD Only) OUTPATIENT [id number] 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 MEDICAT ION (LOSART AN) SLOAN JORDAN 06/26 Released w/o Limitations [employer](B enefici aries_N on-AD Only) [employer](Daryn eficiarie s_Non-AD Only) TELE CONSULT [id number] Notes Entered by: SLOAN JORDAN 01 Jul 2015 1212 ------- ------- ------- ------- -- labs NELDA CANTOR 07/01 [employer](B enefici aries_N on-AD Only) [employer](Tro op_AD Only) TELE CONSULT [id number] Notes Entered by: Glen CARRILLO 06 Oct 2015 1025 ------- ------- ------- ------- -- CAC/GS- MED REFILL- ZERO DAYS LEFT RADHA ALEJANDRE 10/06 [employer](T roop_AD Only) [employer]([facility]) TELE CONSULT [id number] Notes Entered by: PATT ANN 22 Jul 2016 0983 ------- ------- ------- ------- -- CAC/KB/ EYE EXAM ELENITA HOOD 07/22 [employer](O ptometr y Clinic) [employer](Daryn eficiarie s_Non-AD Only) TELE CONSULT [id number] Notes Entered by: Rosa CARRILLO 22 Sep 2016 1426 ------- ------- ------- ------- -- CAC/DDS RX REFILL ElizSCHUYLER PERALTA 09/22 [employer](B enefici aries_N on-AD Only) [employer](Tro op_AD Only) OUTPATIENT [id number] finger injury MENDOZA MARCOS 09/23 Released w/o Limitations [employer](T roop_AD Only) [employer](Daryn eficiarie s_Non-AD Only) TELE CONSULT [id number] Notes Entered by: RIMA BEEBE 23 Sep 2016 1439 ------- ------- ------- ------- -- Lt 4th digit EDWIN Dee 09/23 [employer](B enefici aries_N on-AD Only) [employer](Tro op_AD Only) TELE CONSULT [id number] Notes Entered by: OFELIA SCOTT 29 Sep 2016 1200 ------- ------- ------- ------- -- NETWORK RESULTS -ORTHOP EDIC- JUSTIN KNOWLES 09/29 [employer](T roop_AD Only) [employer](Daryn eficiarie s_Non-AD Only) OUTPATIENT [id number] r/s f/u bp/labs JANUARY COREA 11/02 Released w/o Limitations [employer](B enefici aries_N on-AD Only) [employer]([facility]) OUTPATIENT [id number] [facility] PH[facility] DOREEN GIANG 09/19 Released w/o Limitations [employer](F light Medicin [facility] Clinic) [employer] [facility] OUT[facility] [id number] Z-PHAQ (non-FL Y) ZINA COSTA 07/27 Released w/o Limitations [employer](F [facility] Medicin [facility]) [facility](87 Cln Pharm Svcs) OUTPATIENT [id number] Notes Entered by: PARAS MCKEON 25 Aug 2018 1605 ------- ------- ------- ------- -- Rebecca au ALIE LARA Adolfo 08/25 Released w/o Limitations [employer](8 7 Cln Pharm Svcs) [employer](Tro op_AD Only) TELE CONSULT [id number] Notes Entered by: Glen CARRILLO 18 Jul 2019 1237 ------- ------- ------- ------- -- CAC/GS- RIGHT THUMB NUMBNES S/TINGL ING/RAD IATING UP RIGHT ARM CUELLO DARLING L 07/18 [employer](T roop_AD Only) [employer] [facility] [employer](Tro op_AD Only) OUTPATIENT [id number] right hand numbnes s/tingl ing LINDA SANDOVAL 07/23 Released w/o Limitations [employer](T roop_AD Only) [facility](BOM C 1 Phys Exams) OUTPATIENT [id number] ADELSO CLINE 07/23 Released w/o Limitations [employer](B O[facility] 1 Phys Exams) [facility](Tro op_AD Only) TELE CONSULT [id number] Notes Entered by: MARYJO WILSON 24 Jul 2019 1453 ------- ------- ------- ------- -- CAC/LC/ X-RAY RESULTS / RAFB CLINIC DARLING CUELLO Jaylen 07/24 [employer](T roop_AD Only) [employer](Tro op_AD Only) OUTPATIENT [id number] SLOAN ANDUJAR 07/31 Released w/o Limitations [employer](T roop_AD Only) [employer](Tro op_AD Only) TELE CONSULT [id number] Notes Entered by: Rosa CARRILLO 31 Jul 2019 1114 ------- ------- ------- ------- -- NETWORK RESULTS OCC THERAPY 019 LINDA SANDOVAL 07/31 Referred for Appointment [facility](T roop_AD Only) [facility](Opt ometry Clinic) TELE CONSULT [id number] Notes Entered by: Jared AGRAWAL 20 Sep 2019 0922 ------- ------- ------- ------- -- Resched uling MIGUEL ÁNGEL Sahu 09/20 [facility](O ptometr y Clinic) [facility](Tro op_AD Only) TELE CONSULT [id number] Notes Entered by: STANLEY TOM 24 Sep 2019 1028 ------- ------- ------- ------- -- Rx refill DARLING CUELLO 09/24 [facility](T roop_AD Only) [facility](Opt [facility]metry [facility]) OUTPATIENT [id number] 1 Routine exam Linch MIGUEL ÁNGEL Barragan 09/24 Released w/o Limitations [facility](O ptometr y Clinic) [facility](Tro op_AD Only) TELE CONSULT [id number] Notes Entered by: LINDA SANDOVAL 27 Sep 2019 0515 ------- ------- ------- ------- -- lab DARLING CUELLO 09/27 [facility](T roop_AD Only) [facility](Tro op_AD Only) OUTPATIENT [id number] F2F/INJ URY/ LOWER BACK PAIN X4MOS SLOAN JORDAN 07/21 Released w/o Limitations [facility](T roop_AD Only) [facility](BOM C 1 Phys Exams) OUTPATIENT [id number] MHA [phone] ADELSO CHARLES 07/25 Released w/o Limitations [facility](B O[facility] 1 Phys Exams) [facility](Opt ometry Clinic) OUTPATIENT [id number] Annual Exam ALIE CELIS 08/11 Released w/o Limitations [facility](O ptometr y Clinic) [facility](Tro op_AD Only) OUTPATIENT [id number] Z-PHALINDA NG 08/29 Released w/o Limitations [facility](T roop_AD Only) [facility](Tro op_AD Only) TELE CONSULT [id number] Notes Entered by: STANLEY TOM 04 Dec 2020 0859 ------- ------- ------- ------- -- Javed diallo drop off - Covid vaccine form DEBBIEFABIÁN ESQUEDA Ramin 12/04 Advice Assessment [facility](T roop_AD Only) [facility](Tro op_AD Only) TELE CONSULT [id number] Notes Entered by: LEYLA MORA 21 May 2021 144 ------- ------- ------- ------- -- NETWORK RESULTS URGENT CARE 021 SLOAN JORDAN 05/21 [facility](T roop_AD Only) [facility](Opt ometry Clinic) OUTPATIENT [id number] F2F; ROUTINE EYE EXAM ALIE CELIS 08/17 Released w/o Limitations [facility](O ptometr y Clinic) [facility](Tro op_AD Only) OUTPATIENT [id number] Z-NOA PHIPPS 12/24 Released w/o Limitations [facility](T roop_AD Only) [id number] AMDS Between Visit [id number] 06/28 Discharge Disposition: Home or Self Care 8344R-4 39 AMDS 8344R-439 AMDS Between Visit [id number] 06/28 Discharge Disposition: Home or Self Care 8344R-4 39 AMDS 0310C-AF- C-[facility]th [facility] [place] Between Visit [id number] 07/04 Discharge Disposition: Home or Self Care 0310C-A F-C-66t h [facility] [place] 8344R-439 AMDS Between Visit [id number] 07/10 Discharge Disposition: Home or Self Care 8344R-4 39 AMDS 8344R-439 AMDS Between Visit [id number] 07/15 Discharge Disposition: Home or Self Care [...] MANAGEMENT SERVICE(S) PROVIDED BY A PHARMACIST, INDIVIDUAL, [id number] WITH PATIENT, WITH ASSESSMENT AND INTERVENTION IF [...] WITH SCORING AND DOCUMENTATION, PER STANDARDIZED INSTRUMENT 020 DoD SCANNING COMPUTERIZED OPHTHALMIC DIAGNOSTIC IMAGING, POSTERIOR SEGMENT, WITH INTERPRETATION AND REPORT, UNILATERAL OR BILATERAL; OPTIC NERVE 020 DoD BRIEF COMM TECH-BASE SERV,E.G. VIRT CHK-IN,BY PHYS/OTH QUAL HCP,RPT E&M SERV,PROV TO EST PT,NOT ORIG FRM REL E/M SERV PROV W/IN PREV 7DAY NOR LEAD TO E/M SRV/PX W/IN NEXT 24HR/SOON RAINA; 5-10 MIN DISC DoD DETERMINATION OF REFRACTIVE STATE 019 DoD TELE ASSESS & MGT SRV PROV [...] W/IN THE PREV 7 DAYS,USE THE INTERNET/SIMILAR [employer] NETWORK DoD TELE ASSESS & MGT SRV PROV QUAL NONPHYS HLTH CARE PRO TO EST PAT,PARENT,GUARD NOT ORIG REL ASSESS & MGT SRV PROV W/IN PREV 7 DAYS NOR LEAD ASSESS & MGT SRV/PX W/IN NXT 24H/SOON APT; 11-20 MIN MED DIS [facility] ADMINISTRATION OF PATIENT-FOCUSED HEALTH RISK ASSESSMENT INSTRUMENT (EG, HEALTH HAZARD APPRAISAL) WITH SCORING AND DOCUMENTATION, PER STANDARDIZED INSTRUMENT [facility] BRIEF EMOTIONAL/BEHAVIORA L ASSESSMENT (EG, DEPRESSION INVENTORY, ATTENTION-DEFICIT/H YPERACTIVITY DISORDER [ADHD] SCALE), WITH SCORING AND DOCUMENTATION, PER STANDARDIZED INSTRUMENT DoD TELE ASSESS & MGT SRV PROV QUAL NONPHYS HLTH CARE PRO TO EST PAT,PARENT,GUARD NOT ORIG REL ASSESS & MGT SRV PROV W/IN PREV 7 DAYS NOR LEAD ASSESS & MGT SRV/PX W/IN NXT 24 HR/SOON APT;5-10 MIN MED DIS [facility] Determination Of Refractive State Determination Of Refractive State 54535 MIGUEL ÁNGEL WEN [facility] Ophthalmological New Patient Start Comprehensive Care Ophthalmological New Patient Start Comprehensive Care 69603 MIGUEL ÁNGEL WEN [facility] Spectacles Services Fitting Monofocals (Not For Aphakia) [facility] Fitting Monofocals (Not For Aphakia) 58272 MIGUEL ÁNGEL WEN Request srts record DoD Non-Physician Phone Call To Patient/Provider Brief (5-10min) Non-Physician Phone Call To Patient/Provider Brief (5-10min) [phone] DARLING CUELLO [facility] Non-Physician Phone Call To Patient/Provider Brief (5-10min) Non-Physician Phone Call To Patient/Provider Brief (5-10min) [phone] DARLING CUELLO Internet Med Svc Qual Nonphys Healthcare Prof Estab Patient Internet Med Svc Qual Nonphys Healthcare Prof Estab Patient [id number] ADELSO CHARLES Non-Physician Phone Call To Pt/Provider Intermed (11-20 min) Non-Physician Phone Call To Pt/Provider Intermed (11-20 min) [phone] DARLING CUELLO Med Management By Pharmacist Initial 15 Min Estab Patient Med Management By Pharmacist Initial 15 Min Estab Patient [phone] PARAS MCKEON [facility] Non-Physician Phone Call To Patient/Provider Brief (5-10min) Non-Physician Phone Call To Patient/Provider Brief (5-10min) [id number] EDWIN SUERO [facility] Ophthalmological New Patient Start Comprehensive Care Ophthalmological New Patient Start Comprehensive Care [id number] Determination Of Refractive State Determination Of Refractive State [id number] [address] [facility] Fitting Monofocals (Not For Aphakia) [facility] Fitting Monofocals (Not For Aphakia) 13036 [address] Brief communication technology-based service, e.g. virtual check-in, by a physician or other qualified health care profgenoveva crump who can report evaluation and management services, provided to an established patient, not originating from a related E/M service provided within the previous 7 days nor leading to an E/M service or procedure within the next 24 hours or soonest available appointment; 5-10 minutes of medical discu ADELSO Foley Ophthalmological Prior Patient Start Comprehensive Care Ophthalmological Prior Patient Start Comprehensive Care 01803 ALIE CELIS Determination Of Refractive State Determination Of Refractive State 21495 ALIE CELIS [facility] Fitting Monofocals (Not For Aphakia) [facility] Fitting Monofocals (Not For Aphakia) 98809 ALIE CELIS [facility] Scanning Computerized Ophthalmic Diagnostic Imaging Optic Nerve Scanning Computerized Ophthalmic Diagnostic Imaging Optic Nerve 59601 ALEI CELIS OCT: RNFL/GCL no thinning OD/OS [facility] Social History Combined list of available smoking, tobacco, and other social history from Department of Defense and Veterans Affairs facilities. Social History Type Response Date Comment Sourc e Sex Representation Male (finding) 06/24/2022 Un [...] : DD Form 2813 - SMSgt Viraj ([id number]) Author: JUVE LOCKETT Date: 03/29/25 Entered by JUVE LOCKETT on March 29, 2025 10:06:20 EDT Received D D Form 2813 for patient and updated in CDA / CDS. Please allow for 24 - 48 hours to reflect in ASIMS and allow patient s IMR to reflect current. From: Ganga Cali To: [facility] [place] 439 AMDS Readiness Sent: 03/28/2025 11:19 a.m. PDT Subject: DD Form 2813 - SMSgt Cail ([id number]) Please see the attached DD Form 2813 [...] OD Date: 07/25/23 1. 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 H yperopia of both eyes Low Rx, order readers. No path with dilated eye exam. Noted small area of CR atrophic changes at 2 in OS. No Tx f/u 2 years. Noted increased CD ratio with normal OCT. No Tx but monitor in two years. 07/30/2025 [id number]-[id number] AMDS Assessment and Plan Extracted from:Title : DD Form 2813 - SMSgt Cali ([id number]) Author: JUVE LOCKETT Date: 03/29/25 Entered by JUVE LOCKETT on March 29, 2025 10:06:20 EDT Received D D Form 2813 for patient and updated in CDA / CDS. Please allow for 24 - 48 hours to reflect in ASIMS and allow patient s IMR to reflect current. From: Ganga Cali To: [facility] [place] 439 AMDS Readiness Sent: 03/28/2025 11:19 a.m. PDT Subject: DD Form 2813 - SMSgt Cali ([id number]) Please see the attached DD Form 2813 [...] OD Date: 07/25/23 1. 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 H yperopia of both eyes Low Rx, order readers. No path with dilated eye exam. Noted small area of CR atrophic changes at 2 in OS. No Tx f/u 2 years. Noted increased CD ratio with normal OCT. No Tx but monitor in two years. 07/30/2025 [id number] [facility] Functional Status Combined list of recent functional and cognitive assessments recorded at [facility] of Defense and Veterans Affairs (VA).VA Functional [place] Measurement (FIM) Scale: 1 = Total Assistance (Subject = 0% +), 2 = Maximal Assistance (Subject = 25% +), 3 = Moderate Assistance (Subject = 50% +), 4 = Minimal Assistance (Subject = 75% +), 5 = Supervision, 6 = Modified [place] (Device), 7 = Complete [place] (Timely, Safely). Assessment Date/Time Source Assessment Type Assessment Skill Assessment Score Assessment Details No data available for this section
--- OUTSIDE RECORDS SUMMARY | 2025-07-30 16:50 | XMS_ITS | Clinical Summary ---
Author Organization [address] Address [address] [place] [address] Care Team Providers Care Veterinary Milk Specialist Name Role Phone Torey Cabrera MD Primary Care Provider [phone] Allergies Active Allergy Reactions Criticality Noted Date [...] patient's age to complete this [place] [address] [place] [address] [place] [address] Member Subscriber Plan / Payer (Ef fective 2022-Present) Name:Cely Calinte Dino Relation to Subscriber:Self Name:Ganga Cali Payer ID:[id number] Group ID:Not on file Type:Not on file Address: [place] [id number] Member Subscriber Plan / Payer (Ef fective 2022-Present) Name:Cely Calintgenoveva RestrepoDino Relation to Subscriber:Self Name:Cely Calintgenoveva RestrepoDino Payer ID:[id number] Group ID:Not on file Type:Not on file Address: [place] [id number] Care Teams Veterinary Milk Specialist Relationship Specialty Start Date End Date Torey Cabrera MD [address] [place] [address] [phone] PCP - General Family Medicine 11/23/24
== END 2025-07-30 17:17 | disposition home or self-care (01) ==
LOC: HO.HMCFM 16:06
PROVIDERS: PCP Family Medicine; Visit Provider Family Medicine
DX: I12.9 Hypertensive chronic kidney disease with stage 1 through stage 4 chronic kidney disease, or unspecified chronic kidney disease (principal); R74.8 Abnormal levels of other serum enzymes; R73.01 Impaired fasting glucose; E78.00 Pure hypercholesterolemia, unspecified; N18.9 Chronic kidney disease, unspecified

== ENCOUNTER → 2025-07-30 16:05 | Outpatient (BNVA) | payer OTHER, SELFPAY | PROVIDERS: PCP Family Medicine; Visit Provider Family Medicine | DX: I12.9 Hypertensive chronic kidney disease with stage 1 through stage 4 chronic kidney disease, or unspecified chronic kidney disease (principal); N18.9 Chronic kidney disease, unspecified; R74.8 Abnormal levels of other serum enzymes; R73.01 Impaired fasting glucose; E78.00 Pure hypercholesterolemia, unspecified | CPT/HCPCS: 96127; 99212 ==

== ENCOUNTER 2025-08-05 15:12 | Outpatient (AMB) | payer OTHER, SELFPAY ==
--- OUTSIDE RECORDS SUMMARY | 2025-06-22 05:00 | XMS_ITS ---
Author Organization [facility] Address [address] [place] [address] Care Team Providers Care Curber Name Role Phone JacobRomeron Primary Care Provider Unavailabl Kd Mota Unavailable [phone] Keyon VINEYARD TENDER C, Aleisha Unavailable Unavailable Migration, Provider Unavailable Unavailable REASON FOR VISIT EMR-Jacinto Encounters Encounter Location Date Provider Diagnosis [facility] [address] [place] [address] 06/22/2025 Provider Migration Plan Of Treatment No Information Progress Notes * Ganga CALI ADOB: [birth year] (45 yo M)Acc No.[id number]:06/22/2025 Patient: Luis Ganga GILMORE :1980 A ge:44 Y S ex:Male Phone: Address:[address], [facility] [place] [address] Subjective: * Chief Complaints: * E MR-Jacinto * * Date:
--- OUTSIDE RECORDS SUMMARY | 2025-06-23 05:00 | XMS_ITS ---
Author Organization [facility] Address [address] [place] [address] Care Team Providers Care Court Specialist Name Role Phone Slava James Primary Care Provider UnavailKd De La Torre Unavailable [phone] Kyeon DOOR TO DOOR FUNDRAISING COLLECTOR C, Aleisha Unavailable Unavailable Migration, Provider Unavailable Unavailable Allergies No Known Allergies REASON FOR VISIT EMR-Jacinto Medications Medication SIG (Take, Route, Frequency, Duration) Notes Start Date End Date Status Ultram 50 mg/Tramadol HCL 1 tablet(s) PRN PAIN by mouth TID *Reorder from [employer] for eRx and Interaction Alerts* 09/23/2016 Active Losartan Potassium 50 MG Tablet Oral QD (Daily) Active Encounters Encounter Location Date Provider Diagnosis [facility] [address] [place] [address] [address] [place] [address] 06/23/2025 Provider Migration Plan Of Treatment No Information Progress Notes * Ganga CALI ADOB: [birth year] (45 yo M)Acc No.[id number]:06/23/2025 Patient: Luis GILMOREGanga :1980 A ge:44 Y S ex:Male Phone: Address:[address], [facility] [place] [address] Subjective: * Chief Complaints: * E MR-Jacinto [...]
--- NOTE | 2025-08-05 15:14 | MHC.OFFVIS ---
Vital Signs 08/05/25 15:18 Height 6 ft 1 in Weight 191 lb 12.835 oz BMI 25.3 Respiration 16 Intake Visit Reasons: 4wk s/p LIH w/mesh Intake Note: Patient is seen in office for one month follow up, post left inguinal hernia repair. Pt c/o: denies any concerns at the time of visit Repair Servicer Required: No Accompanied by: Self / Same As Patient Allergies naproxen Allergy (Mild, Verified 08/05/25 15:19) Rash HPI Comments Details: 45-year-old male patient returning 1 month following repair of a left inguinal hernia with mesh. He feels well and denies any ongoing pain, nausea, vomiting, or difficulty with the bowels. He feels ready to return to normal activity. [facility] Medical History Hemangioma Renal cyst Cervical radiculitis Allergies High blood pressure Surgical History H/O vasectomy (~2016) Hx of left inguinal hernia repair (06/24/25) History of cervical discectomy Hx of wisdom tooth extraction Family History Father High blood pressure High cholesterol Mother High blood pressure High cholesterol Maternal Grandmother High blood pressure High cholesterol Diabetes Paternal Grandfather Diabetes High blood pressure High cholesterol Paternal Grandmother Diabetes High blood pressure High cholesterol Other No family history of mental disorder Social History Housing: Apartment Are you a primary patient care provider to a significant other at home: No Do you presently have visiting nurse or other home services: No Patient Tobacco Use Status: Never used Tobacco e-Cigarette/Vaping Use: Never Used Second Hand Smoke Exposure: No service: Yes 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 No changes noted with Valsalva maneuvers. No evidence of infection, hematoma or seroma. Extrem Other: No edema Assessment & Plan Assessment & Plan (1) Left inguinal hernia: Code(s): K40.90 - Unilateral inguinal hernia, without obstruction or gangrene, not specified as recurrent Category: Medical Plan 45-year-old male status post repair of a left inguinal hernia with mesh. He tolerated the procedure well the wounds are well healed. He may resume normal activity without restriction and should follow up as needed. Coding Level of Care Code Global (41047) Diagnoses Left inguinal hernia K40.90
[2025-08-05 15:18] VITALS: RESP 16; BMI 25.3
--- OUTSIDE RECORDS SUMMARY | 2025-08-05 18:23 | XMS_ITS | Patient Health Record ---
Author Organization [facility] Address [address] [place] [address] Care Team Providers Care Nip Wrapper Name Role Phone Slava James Primary Care Provider UnavailKd De La Torre Unavailable [phone] Keyon CAFETERIA TABLE ATTENDANT C, Aleisha Unavailable Unavailable Migration, Provider Unavailable Unavailable Allergies No Known Allergies Reason For Referral No Information Medications Medication SIG (Take, Route, Frequency, Duration) Notes Start Date End Date Status Ultram 50 mg/Tramadol HCL 1 tablet(s) PRN PAIN by mouth TID *Reorder from [employer] for eRx and Interaction Alerts* 09/23/2016 Active Losartan Potassium 50 MG Tablet Oral QD (Daily) Active Problems Problem Type SNOMED Code ICD Code Onset Dates Problem Status W/U Status Risk Notes Problem Essential hypertension (96032997) Unspecified essential hypertension (401.9) 6 Active confirmed Encounters Encounter Location Date Provider Diagnosis [facility] [address] [place] [address] 06/22/2025 Provider Migration [facility] [address] [place] [address] [address] [place] [address] 06/23/2025 Provider Migration Plan Of Treatment No Information
--- OUTSIDE RECORDS SUMMARY | 2025-08-05 18:23 | XMS_ITS | Clinical Summary ---
Author Organization [address] Address [address] [place] [address] Care Team Providers Care Social Worker Assistant Name Role Phone Torey Cabrera MD Primary Care Provider [phone] Allergies Active Allergy Reactions Criticality Noted Date [...] Lipid disorder screening 2021 Covid-19 vaccine series (2024- season) 2025 08/29/2024, 09/09/2023, 08/12/2022, Additional history exists Influenza [...] patient's age to complete this topic [place] [address] [place] [address] Member Subscriber Plan / Payer (Ef fective 2022-Present) Name:Cely Calinte Dino Relation to Subscriber:Self Name:Ganga Cali Payer ID:[id number] Group ID:Not on file Type:Not on file Address: [place] [id number] Member Subscriber Plan / Payer (Ef fective 2022-Present) Name:Cely Calintgenoveva RestrepoDino Relation to Subscriber:Self Name:Cely Calintgenoveva RestrepoDino Payer ID:[id number] Group ID:Not on file Type:Not on file Address: [place] [phone] Care Teams Social Worker Assistant Relationship Specialty Start Date End Date Torey Cabrera MD [address] [place] [address] [phone] PCP - General Family Medicine 11/23/24
== END 2025-08-05 15:43 | disposition home or self-care (01) ==
LOC: HO.HGS 15:13
PROVIDERS: PCP Family Medicine; Visit Provider Surgery
DX: K40.90 Unilateral inguinal hernia, without obstruction or gangrene, not specified as recurrent (principal)
CPT/HCPCS: 99024

== ENCOUNTER → 2025-08-05 15:12 | Outpatient (BNVA) | payer OTHER, SELFPAY | PROVIDERS: PCP Family Medicine; Visit Provider Surgery | DX: K40.90 Unilateral inguinal hernia, without obstruction or gangrene, not specified as recurrent (principal); Z98.890 Other specified postprocedural states | CPT/HCPCS: 99212 ==

== ENCOUNTER 2025-08-14 09:26 | Outpatient (REF) | payer OTHER, SELFPAY | END 2025-08-14 09:27 | disposition home or self-care (01) | LOC: HO.HKASLDS 09:26 | PROVIDERS: PCP Family Medicine; Referring Provider Family Medicine; Visit Provider Internal Medicine Hypertension Specialist | DX: I12.9 Hypertensive chronic kidney disease with stage 1 through stage 4 chronic kidney disease, or unspecified chronic kidney disease (principal); N18.9 Chronic kidney disease, unspecified | CPT/HCPCS: 99202 ==

== ENCOUNTER 2025-08-14 09:26 | Outpatient (AMB) | payer OTHER, SELFPAY ==
--- OUTSIDE RECORDS SUMMARY | 2025-06-22 05:00 | XMS_ITS ---
Author Organization [facility] Address [address] [place] [address] Care Team Providers Care Job Change Crew Member Name Role Phone JacobRomeron Primary Care Provider Unavailabl Kd Mota Unavailable [phone] Keyon HUMAN RESOURCES TALENT MANAGER C, Aleisha Unavailable Unavailable Migration, Provider Unavailable Unavailable REASON FOR VISIT EMR-Jacinto Encounters Encounter Location Date Provider Diagnosis [facility] [address] [place] [address] 06/22/2025 Provider Migration Plan Of Treatment No Information Progress Notes * Ganga CALI ADOB: [birth year] (45 yo M)Acc No.[id number]:06/22/2025 Patient: Luis Ganga GILMORE :1980 A ge:44 Y S ex:Male Phone: Address:[address], [facility] [place] [address] Subjective: * Chief Complaints: * E MR-Jacinto * * Date:
--- OUTSIDE RECORDS SUMMARY | 2025-06-23 05:00 | XMS_ITS ---
Author Organization [facility] Address [address] [place] [address] Care Team Providers Care Communication Specialist Name Role Phone Slava James Primary Care Provider UnavailKd De La Torre Unavailable [phone] Keyon ADJUNCT PROFESSOR C, Aleisha Unavailable Unavailable Migration, Provider Unavailable Unavailable Allergies No Known Allergies REASON FOR VISIT EMR-Jacinto Medications Medication SIG (Take, Route, Frequency, Duration) Notes Start Date End Date Status Ultram 50 mg/Tramadol HCL 1 tablet(s) PRN PAIN by mouth TID *Reorder from [email or web address] for eRx and Interaction Alerts* 09/23/2016 Active Losartan Potassium 50 MG Tablet Oral QD (Daily) Active Encounters Encounter Location Date Provider Diagnosis [facility] [address] [place] [address] [address] [place] [address] 06/23/2025 Provider Migration Plan Of Treatment No Information Progress Notes * Ganga CALI ADOB: [birth year] (45 yo M)Acc No.[id number]:06/23/2025 Patient: Luis GILMOREGanga :1980 A ge:44 Y S ex:Male Phone: Address:[address], [facility] [place] [address] Subjective: * Chief Complaints: * E MR-Jacinto * Medications: T akingUltram 50 mg/Tramadol HCL 1 tablet(s) PRN PAIN by mouth TID , Notes to Pharmacist: *[facility] and [facility]*Losartan Potassium 50 MG Tablet Oral QD (Daily) Taking Ultram 50 mg/Tramadol HCL 1 tablet(s) PRN PAIN by mouth TID , Notes to Pharmacist: *[facility] for [facility] and Interaction Alerts*Taking Losartan Potassium 50 MG Tablet Oral QD (Daily) * Allergies: N .K.D.A. * * Date:
[2025-08-14 09:31] VITALS: BP 110/72; PULSE 71; O2SAT 94; BMI 25.3
--- NOTE | 2025-08-14 09:31 | HO.NEPHOV ---
Vital Signs 08/14/25 09:31 Height 6 ft 1 in Weight 192 lb BMI 25.3 BP 110/72 Blood Pressure Location Lt brachial Position Sitting Pulse 71 Pulse Source Pulse Oximeter Pulse Oximetry (%) 94 Intake Visit Reasons: INP: Chronic kidney disease-Voicemail not set Wire Mesh Filter Fabricator Required: No Accompanied by: Self / Same As Patient Allergies naproxen Allergy (Mild, Verified 08/14/25 09:33) Rash Seasonal Allergies Allergy (Unknown, Verified 08/14/25 09:34) Unknown Medication List - Last Reconciled 08/14/25 by Emerson Gold MD amlodipine 7.5 mg (1.5 x 5 mg) PO QPM 90 days cetirizine 10 mg PO DAILY PRN 30 days clotrimazole-betamethasone 1-0.05 % 1 appl topical BID 2 weeks fluticasone propionate 50 mcg/actuation (Flonase Allergy Relief) 1 spray intranasal Q12H 30 days losartan 50 mg PO QPM 90 days montelukast 10 mg PO QPM PRN HPI Comments Details: The patient is a 45-year-old male presenting with hypertension and kidney function monitoring. He has been on losartan for 15 years with regular lab tests due to borderline results and blood pressure concerns. Home blood pressure readings are generally controlled at 120 to 130/70 mmHg, but noted to be 140/90 mmHg during the visit. Serum creatinine has been fluctuating between 1.35 and 1.5 mg/dL for the past 3 years. He has been taking meloxicam p.r.n.. Admits to drinking adequate fluids. Social History: - Exercise: Lifts weights regularly, [place] - Alcohol: Consumes alcohol once a month - Diet: Normal diet, avoids red meat, consumes turkey and chicken Family History: - Father: Hypertension, hernia - Brother: Hypertension Diagnostic Results: - Labs: Creatinine levels fluctuating, latest 1.5 mg/dL, previous 1.43 mg/dL, 1.35 mg/dL - Ultrasound: Normal kidney appearance, benign simple cyst [facility] Medical History Hemangioma Renal cyst Cervical radiculitis Allergies High blood pressure Surgical History H/O vasectomy (~2017) Hx of left inguinal hernia repair (06/24/25) History of cervical discectomy Hx of wisdom tooth extraction Family History Father High blood pressure High cholesterol Mother High blood pressure High cholesterol Maternal Grandmother High blood pressure High cholesterol Diabetes Paternal Grandfather Diabetes High blood pressure High cholesterol Paternal Grandmother Diabetes High blood pressure High cholesterol Other No family history of mental disorder Social History Housing: Apartment Are you a primary point of care technician to a significant other at home: No Do you presently have visiting nurse or other home services: No Patient Tobacco Use Status: Never used Tobacco e-Cigarette/Vaping Use: Never Used Second Hand Smoke Exposure: No service: Yes 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: No Cognitive needs: No Hearing needs: No Vision needs: No Review of Systems Const Denies anorexia, Denies fever(s) and Denies weakness Eyes Denies blurry vision Card Denies no additional complaints and Denies dyspnea Resp Reports no additional complaints, Reports cough and Denies dyspnea GI Denies melena and Denies diarrhea Denies hematuria Musc Denies tingling Skin/Breast Denies rash Neuro Denies focal weakness, Denies tingling, Denies tremor(s) and Denies weakness Physical Exam Vital Signs: Last Vital Signs Pulse 71 08/14/25 09:31 BP 110/72 08/14/25 09:31 Pulse Ox 94 08/14/25 09:31 BMI result Body Mass Index 25.3 Comfortable Neck supple no JVD. Lungs entry equal no rales. Heart S1-S2 heard no gallop or rub. Abdomen soft nontender. Neuro alert awake oriented. No asterixis. Extremities no edema. Results Reviewed Results Reviewed: Nov 2022 RIGHT KIDNEY: 11.1 x 4.4 x 6.0 cm (SAG x AP x TRV). The kidney is normal in size, contour, and echogenicity. Renal cortical thickness is normal. No renal calculi or hydronephrosis. A benign-appearing 0.6 cm renal cyst,, previously 0.8 cm no imaging follow-up recommended. LEFT KIDNEY: 11.3 x 5.6 x 4.8 cm (SAG x AP x TRV). The kidney is normal in size, contour, and echogenicity. Renal cortical thickness is normal. No calculi or focal parenchymal lesions. No hydronephrosis. US/US renal BI IMPRESSION: Benign-appearing subcentimeter right renal cyst, no imaging follow-up recommended.. Nephrology Results: Sodium, (135-145) 141 mmol/L 07/26/25 Potassium, (3.3-5.1) 4.1 mmol/L 07/26/25 Chloride, (96-108) 106 mmol/L 07/26/25 Carbon Dioxide, (22-29) 27 mmol/L 07/26/25 BUN, (9-16) 19 mg/dL H 07/26/25 Creatinine, (0.5-1.4) 1.50 mg/dL H 07/26/25 Calcium, (8.4-10.2) 9.9 mg/dL 07/26/25 Renal US 12/28/22 Assessment & Plan Assessment & Plan (1) CKD (chronic kidney disease): Code(s): N18.9 - Chronic kidney disease, unspecified Category: Medical (2) High blood pressure: Code(s): I10 - Essential (primary) hypertension Category: Medical Plan 1. Hypertension - Continue losartan and amlodipine. - Monitor blood pressure at home. Stay on low-sodium diet 2. Elevated Creatinine Levels Recent urine studies were benign. No significant proteinuria or hematuria. Renal ultrasonogram back in 2022 was unremarkable except for a simple cysts which did not require any further follow-up. No evidence of obstruction. The fluctuation in creatinine most likely due to altered hemodynamics due to the combination of NSAIDs and ARB. - Limit meloxicam use. - Perform 24-hour urine collection to calculate creatinine clearance Orders: Orders Basic Metabolic Panel Today I10 - Essential (primary) hypertension, N18.9 - Chronic kidney disease, unspecified Creatinine, 24 Hr Group Today I10 - Essential (primary) hypertension, N18.9 - Chronic kidney disease, unspecified Coding Level of Care Code New Pt Level 4 (03316) Diagnoses CKD (chronic kidney disease) N18.9 High blood pressure I10
--- OUTSIDE RECORDS SUMMARY | 2025-08-14 11:07 | XMS_ITS | Clinical Summary ---
Author Organization [address] Address [address] [place] [address] Care Team Providers Care Weight Calculator Name Role Phone Torey Cabrera MD Primary Care Provider [phone] Allergies Active Allergy Reactions Criticality Noted Date [...] patient's age to complete this topic [place] [address] [place] [address] Member Subscriber Plan / Payer (Ef fective 2022-Present) Name:Cely Calinte Dino Relation to Subscriber:Self Name:Ganga Cali Payer ID:[id number] Group ID:Not on file Type:Not on file Address: [place] [phone] Member Subscriber Plan / Payer (Ef fective 2022-Present) Name:Cely Calintgenoveva RestrepoDino Relation to Subscriber:Self Name:Cely Calintgenoveva RestrepoDino Payer ID:[id number] Group ID:Not on file Type:Not on file Address: [place] [phone] Care Teams Weight Calculator Relationship Specialty Start Date End Date Torey Cabrera MD [address] [place] [address] [phone] PCP - General Family Medicine 11/23/24
--- OUTSIDE RECORDS SUMMARY | 2025-08-14 11:07 | XMS_ITS | Patient Health Record ---
Author Organization [facility] Address [address] [place] [address] Care Team Providers Care Lathe Hand Name Role Phone Slava James Primary Care Provider UnavailKd De La Torre Unavailable [phone] Keyon PRIMER WATERPROOFING MACHINE OPERATOR C, Aleisha Unavailable Unavailable Migration, Provider Unavailable Unavailable Allergies No Known Allergies Reason For Referral No Information Medications Medication SIG (Take, Route, Frequency, Duration) Notes Start Date End Date Status Ultram 50 mg/Tramadol HCL 1 tablet(s) PRN PAIN by mouth TID *Reorder from [email or web address] for eRx and Interaction Alerts* 09/23/2016 Active Losartan Potassium 50 MG Tablet Oral QD (Daily) Active Problems Problem Type SNOMED Code ICD Code Onset Dates Problem Status W/U Status Risk Notes Problem Essential hypertension (46779314) Unspecified essential hypertension (401.9) 6 Active confirmed Encounters Encounter Location Date Provider Diagnosis [facility] [address] [place] [address] 06/22/2025 Provider Migration [facility] [address] [place] [address] [address] [place] [address] 06/23/2025 Provider Migration Plan Of Treatment No Information
== END 2025-08-14 09:56 | disposition home or self-care (01) ==
LOC: HO.HKAS 09:27
PROVIDERS: PCP Family Medicine; Referring Provider Family Medicine; Visit Provider Internal Medicine Hypertension Specialist
DX: I12.9 Hypertensive chronic kidney disease with stage 1 through stage 4 chronic kidney disease, or unspecified chronic kidney disease (principal); N18.9 Chronic kidney disease, unspecified
CPT/HCPCS: 99204

== ENCOUNTER 2025-08-19 07:02 | Outpatient (REF) | payer OTHER, SELFPAY ==
--- OUTSIDE RECORDS SUMMARY | 2025-06-22 05:00 | XMS_ITS ---
Author Organization [facility] Address [address] [place] [address] Care Team Providers Care Financial Developer Name Role Phone JacobRomeron Primary Care Provider Unavailabl Kd Mota Unavailable [phone] Keyon RIVETER AUTOMOBILE BRAKES C, Aleisha Unavailable Unavailable Migration, Provider Unavailable Unavailable REASON FOR VISIT EMR-Jacinto Encounters Encounter Location Date Provider Diagnosis [facility] [address] [place] [address] 06/22/2025 Provider Migration Plan Of Treatment No Information Progress Notes * Ganga CALI ADOB: [birth year] (45 yo M)Acc No.[id number]:06/22/2025 Patient: Luis Ganga GILMORE :1980 A ge:44 Y S ex:Male Phone: Address:[address], [facility] [place] [address] Subjective: * Chief Complaints: * E MR-Jacinto * * Date:
--- OUTSIDE RECORDS SUMMARY | 2025-06-23 05:00 | XMS_ITS ---
Author Organization [facility] Address [address] [place] [address] Care Team Providers Care Medical Office Technologist Name Role Phone Slava James Primary Care Provider UnavailKd De La Torre Unavailable [phone] Keyon BRIDGE ATTACHER C, Aleisha Unavailable Unavailable Migration, Provider Unavailable Unavailable Allergies No Known Allergies REASON FOR VISIT EMR-Jacinto Medications Medication SIG (Take, Route, Frequency, Duration) Notes Start Date End Date Status Ultram 50 mg/Tramadol HCL 1 tablet(s) PRN PAIN by mouth TID *Reorder from [employer] for eRx and Interaction Alerts* 09/23/2016 Active Losartan Potassium 50 MG Tablet Oral QD (Daily) Active Encounters Encounter Location Date Provider Diagnosis [facility] [address] [place] [address] [address] [place] [address] 06/23/2025 Provider Migration Plan Of Treatment No Information Progress Notes * Ganga CALI ADOB: [birth year] (45 yo M)Acc No.[id number]:06/23/2025 Patient: Luis GILMOREGanga :1980 A ge:44 Y S ex:Male Phone: Address:[address], [facility] [place] [address] Subjective: * Chief Complaints: * E MR-Jacinto * Medications: T akingUltram 50 mg/Tramadol HCL 1 tablet(s) PRN PAIN by mouth TID , Notes to Pharmacist: *[facility] for [facility]Rx and Interaction Alerts*Losartan Potassium 50 MG Tablet Oral QD (Daily) Taking Ultram 50 mg/Tramadol HCL 1 tablet(s) PRN PAIN by mouth TID , Notes to Pharmacist: *[facility] for [facility]Rx and Interaction Alerts*Taking Losartan Potassium 50 MG Tablet Oral QD (Daily) * Allergies: N .K.D.A. * * Date:
--- OUTSIDE RECORDS SUMMARY | 2025-08-19 07:06 | XMS_ITS | Patient Health Record ---
Author Organization [facility] Address [address] [place] [address] Care Team Providers Care Crisis Intervention Counselor Name Role Phone Slava James Primary Care Provider UnavailKd De La Torre Unavailable [phone] Keyon DIGITAL MARKETING EXECUTIVE C, Aleisha Unavailable Unavailable Migration, Provider Unavailable Unavailable Allergies No Known Allergies Reason For Referral No Information Medications Medication SIG (Take, Route, Frequency, Duration) Notes Start Date End Date Status Ultram 50 mg/Tramadol HCL 1 tablet(s) PRN PAIN by mouth TID *Reorder from [employer] for eRx and Interaction Alerts* 09/23/2016 Active Losartan Potassium 50 MG Tablet Oral QD (Daily) Active Problems Problem Type SNOMED Code ICD Code Onset Dates Problem Status W/U Status Risk Notes Problem Essential hypertension (55666830) Unspecified essential hypertension (401.9) 6 Active confirmed Encounters Encounter Location Date Provider Diagnosis [facility] [address] [place] [address] 06/22/2025 Provider Migration [facility] [address] [place] [address] [address] [place] [address] 06/23/2025 Provider Migration Plan Of Treatment No Information
[2025-08-19 11:03] LABS: Anion Gap 9 (12-20); Blood Urea Nitrogen 13 mg/dL (9-16); Calcium 9.5 mg/dL (8.4-10.2); Carbon Dioxide 30 mmol/L (22-29); Chloride 105 mmol/L (96-108); Estimated Glomerular Filt Rate 54; Potassium 3.9 mmol/L (3.3-5.1); Sodium 140 mmol/L (135-145)
[2025-08-19 11:23] LABS: Creatinine, mg/dL 170.47
[2025-08-19 11:27] LABS: Total Volume 24 Hour Urine 1200 mL
== END 2025-08-19 07:03 | disposition home or self-care (01) ==
LOC: HO.HMGCLDS 07:02
PROVIDERS: PCP Family Medicine; Visit Provider Internal Medicine Hypertension Specialist
DX: I12.9 Hypertensive chronic kidney disease with stage 1 through stage 4 chronic kidney disease, or unspecified chronic kidney disease (principal); N18.9 Chronic kidney disease, unspecified
CPT/HCPCS: 36415; 80048; 82570

== ENCOUNTER 2025-10-02 10:27 | Outpatient (AMB) | payer OTHER, SELFPAY ==
--- OUTSIDE RECORDS SUMMARY | 2025-06-22 04:00 | XMS_ITS ---
Author Organization [facility] Address [address] [place] [address] Care Team Providers Care Key Bed Installer Name Role Phone JacobRomeron Primary Care Provider Unavailabl Kd Mota Unavailable [phone] Keyon MERCHANDISE PICKUP/RECEIVING ASSOCIATE C, Aleisha Unavailable Unavailable Migration, Provider Unavailable Unavailable REASON FOR VISIT EMR-Jacinto Encounters Encounter Location Date Provider Diagnosis [facility] [address] [place] [address] 06/22/2025 Provider Migration Plan Of Treatment No Information Progress Notes * Ganga CALI ADOB: [birth year] (45 yo M)Acc No.[id number]:06/22/2025 Patient: Luis Ganga GILMORE :1980 A ge:44 Y S ex:Male Phone: Address:[address], [address], [facility] [address] Subjective: * Chief Complaints: * E MR-Jacinto * * Date:
--- OUTSIDE RECORDS SUMMARY | 2025-06-23 04:00 | XMS_ITS ---
Author Organization [facility] Address [address] [place] [address] Care Team Providers Care Hot Tar Roofer Helper Name Role Phone Slava James Primary Care Provider UnavailKd De La Torre Unavailable [phone] Keyon HOSPICE ENTRANCE ATTENDANT C, Aleisha Unavailable Unavailable Migration, Provider Unavailable Unavailable Allergies No Known Allergies REASON FOR VISIT EMR-Jacinto Medications Medication SIG (Take, Route, Frequency, Duration) Notes Start Date End Date Status Ultram 50 mg/Tramadol HCL 1 tablet(s) PRN PAIN by mouth TID *Reorder from [email or web address] for eRx and Interaction Alerts* 09/23/2016 Active Losartan Potassium 50 MG Tablet Oral QD (Daily) Active Encounters Encounter Location Date Provider Diagnosis [facility] [address] [place] [address] [address] [place] [address] 06/23/2025 Provider Migration Plan Of Treatment No Information Progress Notes * Ganga CALI ADOB: [birth year] (45 yo M)Acc No.[id number]:06/23/2025 Patient: Luis GILMOREGanga :1980 A ge:44 Y S ex:Male Phone: Address:[address], [facility] [place] [facility] [place] [address] Subjective: * Chief Complaints: * E MR-Jacinto * Medications: T akingUltram 50 mg/Tramadol HCL 1 tablet(s) PRN PAIN by mouth TID , Notes to Pharmacist: *Reorder from [facility] for eRx and Interaction Alerts*Losartan Potassium 50 MG Tablet Oral QD (Daily) Taking Ultram 50 mg/Tramadol HCL 1 tablet(s) PRN PAIN by mouth TID , Notes to Pharmacist: *Reorder from [facility] for eRx and Interaction Alerts*Taking Losartan Potassium 50 MG Tablet Oral QD (Daily) * Allergies: N .K.D.A. * * Date:
[2025-10-02 10:37] VITALS: BP 106/64; PULSE 90; O2SAT 99; BMI 25.1
--- NOTE | 2025-10-02 10:37 | HO.NEPHOV ---
Vital Signs 10/02/25 10:37 Height 6 ft 1 in Weight 190 lb BMI 25.1 BP 106/64 Blood Pressure Location Lt brachial Position Sitting Pulse 90 Pulse Source Pulse Oximeter Pulse Oximetry (%) 99 Oxygen Delivery Method Room Air Intake Visit Reasons: ~3wk fu no labs conf. Control Center Operator Required: No Accompanied by: Self / Same As Patient Allergies naproxen Allergy (Mild, Verified 10/02/25 10:39) Rash Seasonal Allergies Allergy (Unknown, Verified 10/02/25 10:39) Unknown Medication List - Last Reconciled 10/02/25 by Emerson Gold MD amlodipine 7.5 mg (1.5 x 5 mg) PO QPM 90 days cetirizine 10 mg PO DAILY PRN 30 days clotrimazole-betamethasone 1-0.05 % 1 appl topical BID 2 weeks fluticasone propionate 50 mcg/actuation (Flonase Allergy Relief) 1 spray intranasal Q12H 30 days losartan 50 mg PO QPM 90 days montelukast 10 mg PO QPM PRN HPI Comments Details: The patient is a 45-year-old male presenting with hypertension and kidney function monitoring. He has been on losartan for 15 years with regular lab tests due to borderline results and blood pressure concerns. Home blood pressure readings are generally controlled at 120 to 130/70 mmHg, but noted to be 140/90 mmHg during the visit. Serum creatinine has been fluctuating between 1.35 and 1.5 mg/dL for the past 3 years. He has been taking meloxicam p.r.n.. Admits to drinking adequate fluids. Social History: - Exercise: Lifts weights regularly, [place] - Alcohol: Consumes alcohol once a month - Diet: Normal diet, avoids red meat, consumes turkey and chicken Family History: - Father: Hypertension, hernia - Brother: Hypertension Diagnostic Results: - Labs: Creatinine levels fluctuating, latest 1.5 mg/dL, previous 1.43 mg/dL, 1.35 mg/dL - Ultrasound: Normal kidney appearance, benign simple cyst noted 10/02/2025. Overall doing well. Blood pressure is acceptable. Underwent workup as outlined [facility] Medical History Hemangioma Renal cyst Cervical radiculitis Allergies High blood pressure Surgical History H/O vasectomy (~2017) Hx of left inguinal hernia repair (06/24/25) History of cervical discectomy Hx of wisdom tooth extraction Family History Father High blood pressure High cholesterol Mother High blood pressure High cholesterol Maternal Grandmother High blood pressure High cholesterol Diabetes Paternal Grandfather Diabetes High blood pressure High cholesterol Paternal Grandmother Diabetes High blood pressure High cholesterol Other No family history of mental disorder Social History Housing: Apartment Are you a primary home health care physician to a significant other at home: No Do you presently have visiting nurse or other home services: No Patient Tobacco Use Status: Never used Tobacco e-Cigarette/Vaping Use: Never Used Second Hand Smoke Exposure: No service: Yes 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 Lungs entry equal no rales. Heart S1-S2 heard no gallop or rub. Abdomen soft nontender. Neuro alert awake oriented. No asterixis. Extremities no edema. Results Reviewed Results Reviewed: Twenty-four urine collection showed a volume of 1200 cc Creatinine clearance was 19 mL/minute with a serum creatinine of 1.43. Nephrology Results: Sodium, (135-145) 140 mmol/L 08/19/25 Potassium, (3.3-5.1) 3.9 mmol/L 08/19/25 Chloride, (96-108) 105 mmol/L 08/19/25 Carbon Dioxide, (22-29) 30 mmol/L H 08/19/25 BUN, (9-16) 13 mg/dL 08/19/25 Creatinine, (0.5-1.4) 1.43 mg/dL H 08/19/25 Calcium, (8.4-10.2) 9.5 mg/dL 08/19/25 Renal US 12/28/22 Assessment & Plan Assessment & Plan (1) CKD (chronic kidney disease): Code(s): N18.9 - Chronic kidney disease, unspecified Category: Medical (2) High blood pressure: Code(s): I10 - Essential (primary) hypertension Category: Medical Plan 1. Hypertension - Continue losartan and amlodipine. - Monitor blood pressure at home. Stay on low-sodium diet 2. Elevated Creatinine Levels Recent urine studies were benign. No significant proteinuria or hematuria. Renal ultrasonogram back in 2022 was unremarkable except for a simple cysts which did not require any further follow-up. No evidence of obstruction. The fluctuation in creatinine most likely due to altered hemodynamics due to the combination of NSAIDs and ARB. - Limit meloxicam use. Twenty-four urine collection revealed a creatinine clearance of 99 mL/minute which is in the normal range. Increase serum creatinine is probably his baseline due to increased muscle mass. Most importantly the serum creatinine has been reasonably stable. I reassured him Encouraged him to stay on low-sodium diet increase p.o. fluid intake monitor serum creatinine periodically. Orders: Orders Basic Metabolic Panel 6 Months I10 - Essential (primary) hypertension Medications: New amlodipine-valsartan 5-160 mg (Exforge) 1 tab PO DAILY 90 tabs 3RF Discontinued amlodipine Discontinued Reason: Doctor's Order 7.5 mg (1.5 x 5 mg) PO QPM 90 days 135 tabs 3RF losartan Discontinued Reason: Doctor's Order 50 mg PO QPM 90 days 90 tabs 4RF Coding Level of Care Code Est Pt Level 4 (75597) Diagnoses CKD (chronic kidney disease) N18.9 High blood pressure I10
--- OUTSIDE RECORDS SUMMARY | 2025-10-02 12:11 | XMS_ITS | Clinical Summary ---
Author Organization [address] Address [address] [place] [address] Care Team Providers Care Highway Safety Engineer Name Role Phone Torey Cabrera MD Primary Care Provider [phone] Allergies Active Allergy Reactions Criticality Noted Date [...] once) 06/06/2018 06/06/2008 Lipid disorder screening 2021 Influenza vaccine 06/28/2025 08/29/2024, , 08/30/2022, Additional history exists Covid-19 vaccine series (2024- season) 2025 08/29/2024, 09/09/2023, 08/12/2022, Additional history exists RSV Immunization (1 - [...] patient's age to complete this topic [place] [address] Member Subscriber Plan / Payer (Ef fective 2022-Present) Name:Cely Calinte Dino Relation to Subscriber:Self Name:Ganga Cali Payer ID:[id number] Group ID:Not on file Type:Not on file Address: [place] [id number] Member Subscriber Plan / Payer (Ef fective 2022-Present) Name:Cely Calintgenoveva RestrepoDino Relation to Subscriber:Self Name:Cely Calintgenoveva RestrepoDino Payer ID:[id number] Group ID:Not on file Type:Not on file Address: [place] [id number] Care Teams Highway Safety Engineer Relationship Specialty Start Date End Date Torey Cabrera MD [address] [place] [phone] PCP - General Family Medicine 11/23/24
--- OUTSIDE RECORDS SUMMARY | 2025-10-02 12:11 | XMS_ITS | Patient Health Record ---
Author Organization [facility] Address [address] [place] [address] Care Team Providers Care Integration Project Manager Name Role Phone Slava James Primary Care Provider UnavailKd De La Torre Unavailable [phone] Keyon MANAGER SERVICE DESK C, Aleisha Unavailable Unavailable Migration, Provider Unavailable Unavailable Allergies No Known Allergies Reason For Referral No Information Medications Medication SIG (Take, Route, Frequency, Duration) Notes Start Date End Date Status Ultram 50 mg/Tramadol HCL 1 tablet(s) PRN PAIN by mouth TID *Reorder from [employer] for eRx and Interaction Alerts* 09/23/2016 Active Losartan Potassium 50 MG Tablet Oral QD (Daily) Active Problems Problem Type SNOMED Code ICD Code Onset Dates Problem Status W/U Status Risk Notes Problem Essential hypertension (93262166) Unspecified essential hypertension (401.9) 6 Active confirmed Encounters Encounter Location Date Provider Diagnosis [facility] [address] [place] [address] 06/22/2025 Provider Migration [facility] [address] [place] [address] [address] [place] [address] 06/23/2025 Provider Migration Plan Of Treatment No Information
== END 2025-10-02 10:54 | disposition home or self-care (01) ==
LOC: HO.HKAS 10:28
PROVIDERS: PCP Family Medicine; Visit Provider Internal Medicine Hypertension Specialist
DX: I12.9 Hypertensive chronic kidney disease with stage 1 through stage 4 chronic kidney disease, or unspecified chronic kidney disease (principal); N18.9 Chronic kidney disease, unspecified
CPT/HCPCS: 99214

== ENCOUNTER → 2025-10-02 10:27 | Outpatient (BNVA) | payer OTHER, SELFPAY | PROVIDERS: PCP Family Medicine; Visit Provider Internal Medicine Hypertension Specialist | DX: I10 Essential (primary) hypertension (principal); N18.9 Chronic kidney disease, unspecified | CPT/HCPCS: 99212 ==

== ENCOUNTER 2025-10-30 08:31 | Outpatient (AMB) | payer OTHER, SELFPAY ==
--- NOTE | 2025-10-30 08:36 | A.OFFPC_ITS ---
Vital Signs 10/30/25 08:39 Height 6 ft 1 in Weight 193 lb BMI 25.5 BP 128/70 Blood Pressure Location Rt brachial Position Sitting Respiration 12 Pulse 78 Pulse Source Pulse Oximeter Temp 97.2 F Temp Source Oral Pulse Oximetry (%) 99 Oxygen Delivery Method Room Air Intake Visit Reasons: f/u HTN, chronic conditions Intake Note: Follow up on htn. Pharmacy Technician Required: No Allergies naproxen Allergy (Mild, Verified 10/30/25 08:37) Rash Seasonal Allergies Allergy (Unknown, Verified 10/30/25 08:37) Unknown Medication List - Last Reconciled 10/30/25 by Torey Cabrera MD amlodipine-valsartan 5-160 mg (Exforge) 1 tab PO DAILY cetirizine 10 mg PO DAILY PRN 30 days clotrimazole-betamethasone 1-0.05 % 1 appl topical BID 2 weeks fluticasone propionate 50 mcg/actuation (Flonase Allergy Relief) 1 spray intranasal Q12H 30 days montelukast 10 mg PO QPM PRN Tobacco use date assessed: 10/30/25 Dental Screening Dental Screen Date: 10/30/25 Did you have a dental visit in the last 12 months?: Yes Did you have a dental problem in the last 6 months where you did not have access to dental care?: No Was dental information given to patient?: Patient has dentist HPI f/u HTN, chronic conditions HPI Details 45 y/o male presents to f/u HTN, chronic conditions. Had been following up with nephrology for CKD. Blood pressure today 128/70, 78p. He is on amlodipine-valsartan 5-160mg daily. HPI Comments History of Present Illness Details Documentation assistance for Torey Cabrera MD, was provided by Tho Okeefe,? Commercial Counsel on 10/30/2025 at 8:49 AM EST. I, Dr. Cabrera, have read, observed, and verified documentation. ?? PFSH Medical History Hemangioma Renal cyst Cervical radiculitis Allergies High blood pressure Surgical History H/O vasectomy (~2016) Hx of left inguinal hernia repair (06/24/25) History of cervical discectomy Hx of wisdom tooth extraction Family History Father High blood pressure High cholesterol Mother High blood pressure High cholesterol Maternal Grandmother High blood pressure High cholesterol Diabetes Paternal Grandfather Diabetes High blood pressure High cholesterol Paternal Grandmother Diabetes High blood pressure High cholesterol Other No family history of mental disorder Social History Housing: Apartment Are you a primary medicare insurance specialist to a significant other at home: No Do you presently have visiting nurse or other home services: No Patient Tobacco Use Status: Never used Tobacco e-Cigarette/Vaping Use: Never Used Second Hand Smoke Exposure: No service: Yes 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 1. Little interest or pleasure in doing things: not at all 2. Feeling down, depressed, or hopeless: not at all 3. Trouble falling or staying asleep, or sleeping too much: not at all 4. Feeling tired or having little energy: not at all 5. Poor appetite or overeating: not at all 6. Feeling bad about yourself - or that you are a failure or have let yourself or your family down: not at all 7. Trouble concentrating on things, such as reading the newspaper or watching television: not at all 8. Moving or speaking so slowly that other people could have noticed. Or the opposite - being so fidgety or restless that you have been moving around a lot more than usual: not at all 9. Thoughts that you would be better off or of hurting yourself in some way: not at all Total score: 0 Depression Screening Interpretation: Negative Depression Screening Done: Yes 93223 - PHQ-9 Billing: Yes Source: Developed by Drs. Olu Jerez, Tonya Duron, Rod Chen and colleagues, with an educational beba from [employer]. Thrive Questionnaire Date Thrive assessed: 10/30/25 I am a: Patient What is your living situation today?: I have a steady place to live Within the past 12 months, did the food you bought not last and you didn't have the money to get more?: Never true Within the past 12 months, did you worry whether your food would run out before you got money to buy more?: Never true Do you have trouble paying for medicines?: No Do you have trouble getting transportation to medical appointments?: No Do you have trouble paying your heating and electricity bill?: No Do you have trouble taking care of your child, family member or friend?: No Do you have trouble with day-to-day activities such as bathing, preparing meals, shopping, managing finances, etc.?: No Are you currently unemployed and looking for a job?: No Are you interested in more education?: No Please select the resources that you would like help with: None Currently or been in a relationship where the following occur: No concerns reported THRIVE Score: 0 NELLI-7 AMB Questionnaire NELLI-7 Date NELLI - 7 assessed: 10/30/25 Feeling nervous, anxious, or on edge: 0 = Not at all Not being able to stop or control worryin = Not at all Worrying too much about different things: 0 = Not at all Trouble relaxin = Not at all Being so restless that it is hard to sit still: 0 = Not at all Becoming easily annoyed or irritable: 0 = Not at all Feeling afraid as if something awful might happen: 0 = Not at all Total NELLI-7 score (0-4 normal; 5-9 mild; 10-14 moderate; 15-21 severe): 0 Source: Developed by Drs. Olu Jerez, Tonya Duron, Rod Chen and colleagues, with an educational beba from [employer]. NELLI-7 Assessment Billing NELLI-7 Assessment Tool: NELLI-7 Assessment 66893 Review of Systems Const Denies chills, Denies fatigue, Denies fever(s), Denies headache(s) and Denies weakness ENT Denies dizziness and Denies headache(s) Card Denies dyspnea Resp Denies cough, Denies dyspnea, Denies wheezing and Denies other (shortness of breath) Musc Denies numbness and Denies tingling Neuro Denies dizziness, Denies headache(s), Denies numbness, Denies tingling and Denies weakness Psych Denies anxiety and Denies depression Endo Denies fatigue Aller/Immun Denies wheezing Physical exam (Primary Care) Vital Signs: Last Vital Signs Temp 97.2 F 10/30/25 08:39 Pulse 78 10/30/25 08:39 Resp 12 10/30/25 08:39 BP 128/70 10/30/25 08:39 Pulse Ox 99 10/30/25 08:39 Oxygen Delivery Method Room Air 10/30/25 08:39 BMI result Body Mass Index 25.5 Tobacco/Smoking Status: Tobacco use Status Tobacco use date assessed 10/30/25 10/30/25 08:41 Patient Tobacco Use Status Never used Tobacco 10/30/25 08:41 e-Cigarette/Vaping Use Never Used 10/30/25 08:41 PHQ-9: PHQ-9 Score PHQ-9: Total score 0 10/30/25 08:41 Depression Screening Interpretation: Negative Thrive Assessment: Date of Thrive Assessment Date Thrive assessed 10/30/25 10/30/25 08:41 Currently or been in a relationship where the following occur: No concerns reported Const General: well developed; No acute distress Nutritional Appearance: well nourished Orientation/consciousness: patient oriented x3 HENMT Head: Yes normocephalic and Yes atraumatic Eyes General: appearance normal, both eyes and all related structures Pupils: Equal, round and reactive pupils present EOM: EOMs intact bilaterally Resp Effort & Inspection: normal respiratory effort Neuro General: patient oriented x3 and gait normal Cranial nerves: Yes Equal, round and reactive pupils present Psych Affect: normal affect Coding Level of Care Code Est Pt Level 3 (40102) Diagnoses Hypertension I10 CKD (chronic kidney disease) N18.9 Additional Codes NELLI-7 Assessment Billing - NELLI-7 Assessment Tool: NELLI-7 Assessment 44108 ([id number]) PHQ-9 - 27919 - PHQ-9 Billing: Yes ([id number]) Assessment & Plan Assessment & Plan (1) Hypertension: Code(s): I10 - Essential (primary) hypertension Category: Medical Plan: Blood pressure is controlled. Goal is less than 140/90 Continue current medications (2) CKD (chronic kidney disease): Code(s): N18.9 - Chronic kidney disease, unspecified Category: Medical Plan: Mild CKD 3a Stable Continue good hydration, avoid NSAIDs and control blood pressure Will continue to monitor Orders: Orders Lipid Panel Today R74.8 - Abnormal levels of other serum enzymes, Z00.00 - Encounter for general adult medical examination without abnormal findings Comprehensive [place]. Panel Fast Today R74.8 - Abnormal levels of other serum enzymes, Z00.00 - Encounter for general adult medical examination without abnormal findings Microalbumin, Random (w Creat) Today I10 - Essential (primary) hypertension TSH reflex Free T4 Today Z00.00 - Encounter for general adult medical examination without abnormal findings UA CC w/rflx Micro + Cult Today Z00.00 - Encounter for general adult medical examination without abnormal findings Prostate Specific Antigen Scr Today Z12.5 - Encounter for screening for malignant neoplasm of prostate
[2025-10-30 08:39] VITALS: BP 128/70; PULSE 78; RESP 12; TEMP 36.2; O2SAT 99; BMI 25.5
--- OUTSIDE RECORDS SUMMARY | 2025-10-30 08:42 | XMS_ITS | Clinical Summary ---
Author Organization [address] Address [address] [place] [address] Care Team Providers Care Mechanical Repair Worker Name Role Phone Torey Cabrera MD Primary Care Provider [phone] Allergies Active Allergy Reactions Criticality Noted Date [...] to complete this topic [place] [address] Member Subscriber Plan / Payer (Ef fective 2022-Present) Name:Cely Calinte Dino Relation to Subscriber:Self Name:Ganga Cali Payer ID:[id number] Group ID:Not on file Type:Not on file Address: [place] [id number] Member Subscriber Plan / Payer (Ef fective 2022-Present) Name:Cely Calintgenoveva RestrepoDino Relation to Subscriber:Self Name:Cely Calintgenoveva RestrepoDino Payer ID:[id number] Group ID:Not on file Type:Not on file Address: [place] [id number] Care Teams Mechanical Repair Worker Relationship Specialty Start Date End Date Torey Cabrera MD [address] [place] [phone] PCP - General Family Medicine 11/23/24
== END 2025-10-30 08:59 | disposition home or self-care (01) ==
LOC: HO.HMCFM 08:32
PROVIDERS: PCP Family Medicine; Visit Provider Family Medicine
DX: I12.9 Hypertensive chronic kidney disease with stage 1 through stage 4 chronic kidney disease, or unspecified chronic kidney disease (principal); N18.9 Chronic kidney disease, unspecified

== ENCOUNTER → 2025-10-30 08:31 | Outpatient (BNVA) | payer OTHER, SELFPAY | PROVIDERS: PCP Family Medicine; Visit Provider Family Medicine | DX: I10 Essential (primary) hypertension (principal); Z13.31 Encounter for screening for depression; Z13.39 Encounter for screening examination for other mental health and behavioral disorders; R74.8 Abnormal levels of other serum enzymes; N18.9 Chronic kidney disease, unspecified; Z79.899 Other long term (current) drug therapy | CPT/HCPCS: 96127; 99212 ==